=== PATIENT | male | born 1935 | race Hispanic/Latino ===

== ENCOUNTER 2018-09-21 12:56 | Inpatient (IN) | payer OTHER ==
[2018-09-21 13:59] LABS: Absolute Lymphocytes (CBC) 1.5 K/uL (0.7-4.9); Absolute Monocytes 0.7 K/uL (0.1-1.3); Basophils % 0.5 % (0-1.3); Eosinophils % 0.1 % (0-4.4); Hematocrit 27.6 % (39.6-49.0); Lymphocytes % 6.8 % (15.3-44.8); MPV 8.7 fL (7.6-11.3); RBC Red Blood Cell Count 4.88 M/uL (4.33-5.43)
[2018-09-21 14:25] LABS: Albumin 3.8 g/dL (3.4-5.0); Bilirubin Direct 0.1 mg/dL (0-0.2); Bilirubin Total 0.3 mg/dL (0.2-1.0); Potassium 4.1 mmol/L (3.5-5.1); Protein, Total 8.8 g/dL (6.4-8.2)
--- NOTE | 2018-09-21 15:00 | RAD REPORT ---
EXAM DESCRIPTION: CTAbdomen Pelvis W Contrast - 09/21/2018 2:47 pm CLINICAL HISTORY: Abdominal pain. iv only;Abd pain COMPARISON: No comparisons TECHNIQUE: Biphasic CT imaging of the abdomen and pelvis was performed with 100 ml non-ionic IV cont rast. All CT scans are performed using dose optimization technique as appropriate and may include automated exposure control or mA/KV adjustment according to patient size. FINDINGS: Linear opacities are present in the inferior the lingula and left posterior lung base whic h may indicate mild aspiration or developing infiltrate.A small hiatal hernia is present. The liver, spleen, pancreas, adrenal glands and kidneys are within normal limits. Small focal fat con taining ventral hernia noted. Multiple distal mildly dilated small bowel loops are seen in the lower abdomen. Small bowel loops are extending into moderate to large inguinal hernia and into the right scrotal sac. Within the hernia s ac the small bowel loops appear dilated and mild fluid is present. This would indicate hernia incarce ration. A portion of the right aspect of the urinary bladder also extends into the hernia. The append ix is normal. Moderate stool is present in the colon. Prostate gland is mildly enlarged and projects into the bladder base. Moderate lumbosacral degenerati ve changes. IMPRESSION: Incarcerated right inguinal hernia is suspected containing dilated small bowel loops and fluid. This appears to resulting in mild mechanical small-bowel obstruction in the lower abdomen inv olving the distal small bowel loops.
[2018-09-21] MEDS ORDERED: METRONIDAZOLE 500mg IVPB 0 MG/0 ML BAG IV ONE (15:35)
[2018-09-21] MEDS ORDERED: NA CHLORIDE 0.9% 1,000 ML ONE (15:35)
[2018-09-21] MEDS ORDERED: ONDANSETRON 4 MG/2 ML VIAL ONE ×3 (15:35→20:22)
--- NOTE | 2018-09-21 15:50 | EKG ---
Test Date: 2018-09-21 Test Time: 14:00:32 Family Development Specialist: BLAKE MEASUREMENT RESULTS: Intervals: Rate: 79 VT: 136 QRSD: 90 QT: 396 QTc: 454 [place]: P: -7 VT: 136 QRS: 59 T: 75 INTERPRETIVE STATEMENTS: Normal sinus rhythm with sinus arrhythmia Minimal voltage criteria for LVH, may be normal variant Borderline ECG No previous ECG available for comparison Electronically Signed On 09-21-18 15:50:00 CDT by Wilmer Rodríguez
--- NOTE | 2018-09-21 15:50 | RAD REPORT ---
EXAM DESCRIPTION: Romaine Single View09/21/2018 3:35 pm CLINICAL HISTORY: Shortness of breath COMPARISON: none FINDINGS: Mild basilar opacities within the left lung. The right lung appears clear. The heart is normal size IMPRESSION: Mild left basilar pneumonia
[2018-09-21] MEDS ORDERED: PIPER/TAZO/NS 3.375gm 3.375 GM/100 ML BAG ONE ×2 (15:53→23:58)
[2018-09-21] MEDS ORDERED: NA CHLORIDE 0.9% 500 ML ONE (16:03)
--- NOTE | 2018-09-21 16:03 | ER ---
Nurse's Notes [facility] Name: David Escudero Age: 82 yrs Sex: Male : 1935 Arrival Date: 09/21/2018 Time: 12:58 Bed 3 Private MD: Diagnosis: Inguinal hernia-Incarcerated;Small bowel obstruction;Anemia Presentation: 09/21 13:08 Presenting complaint: Patient states: abd pain, N/V that began this morning. Transition ss of care: patient was not received from another setting of care. Onset of symptoms was September 21, 2018. Risk Assessment: Do you want to hurt yourself or someone else? Patient reports no desire to harm self or others. Initial Sepsis Screen: Does the patient meet any 2 criteria? No. Patient's initial sepsis screen is negative. Does the patient have a suspected source of infection? No. Patient's initial sepsis screen is negative. Care prior to arrival: None. 13:08 Method Of Arrival: Wheelchair ss 13:08 Acuity: LOTTIE 2 ph Historical: - Allergies: 13:10 No Known Allergies; ss - PMHx: 13:10 Diabetes - NIDDM; ss - Immunization history:: Adult Immunizations up to date. - Social history:: Smoking status: Patient/guardian denies using tobacco. - Ebola Screening: : Patient denies exposure to infectious person Patient denies travel to an Ebola-affected area in the 21 days before illness onset. Screenin:50 Abuse screen: Denies threats or abuse. Denies injuries from another. Nutritional ph screening: No deficits noted. Tuberculosis screening: No symptoms or risk factors identified. Fall Risk None identified. Assessment: 13:30 General: Appears in no apparent distress. uncomfortable, well groomed, Behavior is ph calm, cooperative, appropriate for age, Denies fever. Pain: Complains of pain in right inguinal area and right lower quadrant and right upper quadrant. Neuro: Level of Consciousness is awake, alert, obeys commands, Oriented to person, place, time, situation. Cardiovascular: Reports nausea, Denies chest pain, shortness of breath, Capillary refill is sluggish in bilateral fingers Rhythm is sinus rhythm. Respiratory: Airway is patent Respiratory effort is even, unlabored, Respiratory pattern is regular, symmetrical, Denies cough, shortness of breath. GI: Abdomen is round Abdomen is tender to palpation in right upper quadrant and right lower quadrant Reports lower abdominal pain, upper abdominal pain, nausea, vomiting, Patient currently denies bloody stool, diarrhea. : Swelling noted on scrotum Reports pain in right in suprapubic area Denies inability to void. Derm: Skin is intact, Skin is pale, Skin temperature is cool. Musculoskeletal: Circulation, motion, and sensation intact. Range of motion: intact in all extremities. 14:30 Reassessment: Patient appears in no apparent distress at this time. Patient and/or ph family updated on plan of care and expected duration. Pain level reassessed. Patient is alert, oriented x 3, equal unlabored respirations, skin warm/dry/pink. 15:35 Reassessment: Patient appears in no apparent distress at this time. Patient and/or ph family updated on plan of care and expected duration. Pain level reassessed. Patient is alert, oriented x 3, equal unlabored respirations, skin warm/dry/pink. ERP at bedside attempting to manipulate inguinal hernia back in to place, attempts unsuccessful. 15:50 Reassessment: Dr Boggs at bedside to speak assess pt and explain surgical procedure. ph 16:10 Reassessment: Patient appears in no apparent distress at this time. Patient and/or ph family updated on plan of care and expected duration. Pain level reassessed. Patient is alert, oriented x 3, equal unlabored respirations, skin warm/dry/pink. 17:00 Reassessment: Patient appears in no apparent distress at this time. Patient and/or ph family updated on plan of care and expected duration. Pain level reassessed. Patient is alert, oriented x 3, equal unlabored respirations, skin warm/dry/pink. 18:12 Reassessment: Patient appears in no apparent distress at this time. Patient and/or ph family updated on plan of care and expected duration. Pain level reassessed. Patient is alert, oriented x 3, equal unlabored respirations, skin warm/dry/pink. Report given to OR nurse, pt taken to surgery. Vital Signs: 13:10 BP 194 / 61; Pulse 81; Resp 18; Temp 97.3(TE); Pulse Ox 100% on R/A; Weight 68.04 kg; ss Height 5 ft. 7 in. (170.18 cm); Pain 07/10; 14:00 BP 172 / 67; Pulse 79; Resp 18; Pulse Ox 99% on R/A; ph 15:00 BP 181 / 60; Pulse 76; Resp 18; Pulse Ox 99% on R/A; ph 16:00 BP 182 / 72; Pulse 79; Resp 18; Temp 97.9; Pulse Ox 99% on R/A; ph 16:59 BP 179 / 74; Pulse 100; Resp 18; Pulse Ox 98% on R/A; ph 18:13 BP 141 / 63; Pulse 82; Resp 18; Temp 98.0; Pulse Ox 99% on R/A; ph 13:10 Body Mass Index 23.49 (68.04 kg, 170.18 cm) ED Course: 12:58 Patient arrived in ED. mr 13:09 Triage completed. ss 13:10 Arm band placed on right wrist. ss 13:13 Anthony Delcid PA is PHCP. jr8 13:13 Jaspreet Andrade MD is Attending Physician. jr8 13:17 Nancy Zarco RN is Primary Nurse. ph 13:50 Patient has correct armband on for positive identification. Bed in low position. Call ph light in reach. Side rails up X 1. Pulse ox on. NIBP on. 14:05 EKG done, by electrical equipment technician. reviewed by Anthony TIERNEY. at1 14:13 Inserted saline lock: 22 gauge in right forearm, using aseptic technique. em1 14:[address] via stretcher. vm2 14:42 CT completed. Patient tolerated procedure well. Patient moved back from CT. vm2 14:48 CT Abd/Pelvis - W/Contrast In Process Unspecified. EDMS 15:36 XRAY Chest (1 view) In Process Unspecified. EDMS 15:50 Inserted saline lock: 20 gauge in left antecubital area, using aseptic technique. ph 16:01 Rodolfo Narayan DO is Hospitalizing Provider. jr8 16:58 No provider procedures requiring assistance completed. ph Administered Medications: 15:30 Drug: Zofran 4 mg Route: IVP; Site: right forearm; ph 16:52 Follow up: Response: No adverse reaction ph 15:35 Drug: NS 0.9% 1000 ml Route: IV; Rate: 1000 ml; Site: right antecubital; ph 16:50 Follow up: Response: No adverse reaction; IV Status: Order to discontinue infusion; IV ph Intake: 500ml 15:39 Not Given (Physician Discretion): Flagyl 500 mg 100 ml IVPB at 200 ml/hr once over 30 jr8 mins 15:40 Not Given (Physician Discretion): Mefoxin 1 grams IVPB once over 30 mins; (mix in 50 mL jr8 NS) 15:50 Drug: Zosyn 3.375 grams Route: IVPB; Infused Over: 60 mins; Site: right forearm; ph 16:50 Follow up: Response: No adverse reaction; IV Status: Completed infusion ph 16:20 Drug: Zofran 4 mg Route: IVP; Site: right forearm; ph 16:52 Follow up: Response: No adverse reaction ph 16:30 Drug: Meropenem 1 grams Route: IV; Rate: calculated rate; Site: right antecubital; ss 18:12 Follow up: Response: No adverse reaction; IV Status: Completed infusion ph Medication: 16:05 Blood products: PRBCs X 1 unit given. ph Intake: 16:50 IV: 500ml; Total: 500ml. ph Outcome: 16:02 Decision to Hospitalize by Provider. [facility] 18:13 Admitted to OR accompanied by nurse, family with patient, via stretcher, with chart. ph 18:13 critical 18:13 Instructed on the need for admit. 18:14 Patient left the ED. ph Signatures: Dispatcher [employer] Laura Wiley Eric em1 Linda Higginbotham RN RN Anthony Delcid PA PA jr8 Yazmin Joaquin, solar manufacturer's representative EKG Tat1 Nancy Zarco RN RN Deepali L[facility] Corrections: (The following items were deleted from the chart) 17:02 13:08 Acuity: LOTTIE 3 ss ph
--- NOTE | 2018-09-21 16:03 | EDPHYS ---
Physician Documentation [facility] Name: David Escudero Age: 82 yrs Sex: Male : 1935 Arrival Date: 09/21/2018 Time: 12:58 Bed 3 Private MD: ED Physician Jaspreet Andrade HPI: 09/21 14:29 This 82 yrs old Male presents to ER via Wheelchair with complaints of jr8 Abdominal Pain, Vomiting. 14:29 The patient presents with abdominal pain in the right upper quadrant, right lower jr8 quadrant. Onset: The symptoms/episode began/occurred acutely, today. The symptoms do not radiate. Associated signs and symptoms: Pertinent positives: nausea and vomiting. The symptoms are described as crampy, stabbing. Modifying factors: The symptoms are alleviated by nothing, the symptoms are aggravated by nothing. Severity of pain: At its worst the pain was moderate in the emergency department the pain is unchanged. The patient has not experienced similar symptoms in the past. The patient has not recently seen a physician. Historical: - Allergies: 13:10 No Known Allergies; ss - PMHx: 13:10 Diabetes - NIDDM; ss - Immunization history:: Adult Immunizations up to date. - Social history:: Smoking status: Patient/guardian denies using tobacco. - Ebola Screening: : Patient denies exposure to infectious person Patient denies travel to an Ebola-affected area in the 21 days before illness onset. ROS: 14:29 ENT: Negative for injury, pain, and discharge, Neck: Negative for injury, pain, and jr8 swelling, Cardiovascular: Negative for chest pain, palpitations, and edema, Respiratory: Negative for shortness of breath, cough, wheezing, and pleuritic chest pain, Back: Negative for injury and pain, MS/Extremity: Negative for injury and deformity, Skin: Negative for injury, rash, and discoloration, Neuro: Negative for headache, weakness, numbness, tingling, and seizure. 14:29 Abdomen/GI: Positive for abdominal pain, nausea and vomiting, abdominal cramps, Negative for diarrhea, abdominal distension, anorexia, dysphagia, hematemesis, black/tarry stool, rectal pain, rectal bleeding, bowel incontinence, flatulence. Exam: 14:29 Eyes: Pupils equal round and reactive to light, extra-ocular motions intact. Lids and jr8 lashes normal. Conjunctiva and sclera are non-icteric and not injected. Cornea within normal limits. Periorbital areas with no swelling, redness, or edema. ENT: Nares patent. No nasal discharge, no septal abnormalities noted. Tympanic membranes are normal and external auditory canals are clear. Oropharynx with no redness, swelling, or masses, exudates, or evidence of obstruction, uvula midline. Mucous membranes moist. Neck: Trachea midline, no thyromegaly or masses palpated, and no cervical lymphadenopathy. Supple, full range of motion without nuchal rigidity, or vertebral point tenderness. No Meningismus. Cardiovascular: Regular rate and rhythm with a normal S1 and S2. No gallops, murmurs, or rubs. Normal PMI, no JVD. No pulse deficits. Respiratory: Lungs have equal breath sounds bilaterally, clear to auscultation and percussion. No rales, rhonchi or wheezes noted. No increased work of breathing, no retractions or nasal flaring. Back: No spinal tenderness. No costovertebral tenderness. Full range of motion. Skin: Warm, dry with normal turgor. Normal color with no rashes, no lesions, and no evidence of cellulitis. MS/ Extremity: Pulses equal, no cyanosis. Neurovascular intact. Full, normal range of motion. Neuro: Awake and alert, GCS 15, oriented to person, place, time, and situation. Cranial nerves II-XII grossly intact. Motor strength 5/5 in all extremities. Sensory grossly intact. Cerebellar exam normal. Normal gait. 14:29 Abdomen/GI: Inspection: Multiple node like masses to right upper and mid abdomen that are freely mobile and non tender, Bowel sounds: active, all quadrants, Palpation: soft, in all quadrants, mild abdominal tenderness, in the right upper quadrant and right lower quadrant, mass, is not appreciated, rebound tenderness, is not appreciated, voluntary guarding, is not appreciated, involuntary guarding, is not appreciated, no appreciated organomegaly, Indicators: McBurney's point is not tender, Baez's sign is negative, Rovsing's sign is negative, Liver: tenderness, is not appreciated. 15:50 Abdomen/GI: Rectal exam: Prostate: normal, rectal tone normal, Stool: brown, guaiac jr8 negative, hemorrhoid(s), are not appreciated, Hernia: noted in the right inguinal area, incarceration, that is moderate, tenderness, that is moderate, bowel sounds are appreciated on auscultation. Vital Signs: 13:10 BP 194 / 61; Pulse 81; Resp 18; Temp 97.3(TE); Pulse Ox 100% on R/A; Weight 68.04 kg; ss Height 5 ft. 7 in. (170.18 cm); Pain 07/10; 14:00 BP 172 / 67; Pulse 79; Resp 18; Pulse Ox 99% on R/A; ph 15:00 BP 181 / 60; Pulse 76; Resp 18; Pulse Ox 99% on R/A; ph 16:00 BP 182 / 72; Pulse 79; Resp 18; Temp 97.9; Pulse Ox 99% on R/A; ph 16:59 BP 179 / 74; Pulse 100; Resp 18; Pulse Ox 98% on R/A; ph 18:13 BP 141 / 63; Pulse 82; Resp 18; Temp 98.0; Pulse Ox 99% on R/A; ph 13:10 Body Mass Index 23.49 (68.04 kg, 170.18 cm) ss MDM: 13:13 Patient medically screened. jr8 15:45 ED course: Discussed with family and patient need for admission with surgery secondary jr8 to incarcerated hernia and small bowel obstruction. Family and patient understand. Surgeon to see them in ED shortly . 15:51 Data reviewed: vital signs, nurses notes, lab test result(s), EKG, radiologic studies, jr8 CT scan. Data interpreted: Pulse oximetry: on room air is 100 %. Interpretation: normal. Counseling: I had a detailed discussion with the patient and/or guardian regarding: the historical points, exam findings, and any diagnostic results supporting the discharge/admit diagnosis, lab results, radiology results, the need for further work-up and treatment in the hospital. Physician consultation: Pramod Boggs MD was called at 15:51, was contacted at 15:51, regarding admission, to the operating room, consult, patient's condition, and will see patient in ED. 09/21 13:26 Order name: Basic Metabolic Panel; Complete Time: 14:28 jr8 09/21 13:26 Order name: CBC with Diff; Complete Time: 17:05 8 09/21 13:26 Order name: Creatinine for Radiology; Complete Time: 14:28 [facility] 09/21 13:26 Order name: Hepatic Function; Complete Time: 14:28 [facility] 09/21 13:26 Order name: Lipase; Complete Time: 14:28 [facility] 09/21 14:13 Order name: Manual Differential; Complete Time: 17:05 [facility] 09/21 14:14 Order name: NT PRO-BNP; Complete Time: 16:51 [facility] 09/21 14:14 Order name: PT-INR; Complete Time: 16:20 [facility] 09/21 14:14 Order name: Troponin (emerg Dept Use Only); Complete Time: 16:51 [facility] 09/21 14:14 Order name: TS [facility] 09/21 15:38 Order name: RBC Leukored Pheresis [facility] 09/21 15:41 Order name: Blood Culture Adult (2) [facility] 09/21 15:48 Order name: Occult Blood--Ancillary; Complete Time: 16:20 09/21 16:23 Order name: Packed RBC Leukored -1 [facility] 09/21 13:26 Order name: IV Saline Lock; Complete Time: 14:21 [facility] 09/21 13:26 Order name: Labs collected and sent; Complete Time: 14:21 [facility] 09/21 13:50 Order name: EKG; Complete Time: 13:50 [facility] 09/21 13:50 Order name: EKG - Nurse/Tech; Complete Time: 15:06 [facility] 09/21 14:14 Order name: XRAY Chest (1 view); Complete Time: 16:02 [facility] 09/21 14:14 Order name: Cardiac monitoring; Complete Time: 16:48 [facility] 09/21 14:29 Order name: CT Abd/Pelvis - W/Contrast; Complete Time: 15:14 [facility] 09/21 16:39 Order name: ABO/RH no charge; Complete Time: 16:51 EDCT Administered Medications: 15:30 Drug: Zofran 4 mg Route: IVP; Site: right forearm; ph 16:52 Follow up: Response: No adverse reaction ph 15:35 Drug: NS 0.9% 1000 ml Route: IV; Rate: 1000 ml; Site: right antecubital; ph 16:50 Follow up: Response: No adverse reaction; IV Status: Order to discontinue infusion; IV ph Intake: 500ml 15:39 Not Given (Physician Discretion): Flagyl 500 mg 100 ml IVPB at 200 ml/hr once over 30 jr8 mins 15:40 Not Given (Physician Discretion): Mefoxin 1 grams IVPB once over 30 mins; (mix in 50 mL jr8 NS) 15:50 Drug: Zosyn 3.375 grams Route: IVPB; Infused Over: 60 mins; Site: right forearm; ph 16:50 Follow up: Response: No adverse reaction; IV Status: Completed infusion ph 16:20 Drug: Zofran 4 mg Route: IVP; Site: right forearm; ph 16:52 Follow up: Response: No adverse reaction ph 16:30 Drug: Meropenem 1 grams Route: IV; Rate: calculated rate; Site: right antecubital; ss 18:12 Follow up: Response: No adverse reaction; IV Status: Completed infusion ph Disposition: 09/22 05:54 Co-signature as Attending Physician, Jaspreet Andrade MD I agree with the assessment and octavio plan of care. Disposition: 09/21/18 16:02 Hospitalization ordered by Rodolfo Narayan for Inpatient Admission. Preliminary diagnosis are Inguinal hernia - Incarcerated, Small bowel obstruction, Anemia. - Bed requested for Operating Room. - Status is Inpatient Admission. ph - Condition is Fair. - Problem is new. - Symptoms are unchanged. UTI on Admission? No Critical care time excluding procedures: 09/21 15:45 Critical care time: Bedside Care: 20 minutes, Consultation: 10 minutes, Family jr8 Intervention: 10 minutes. Total time: 40 minutes Signatures: Dispatcher [employer] Jaspreet Loera MD MD cha Smirch, Shelby, RN RN Anthony Delcid PA PA jr8 Nancy Zarco RN RN ph Corrections: (The following items were deleted from the chart) 18:14 16:02 Hospitalization Ordered by Rodolfo Narayan DO for Inpatient Admission. Preliminary ph diagnosis is Inguinal hernia - Incarcerated; Small bowel obstruction; Anemia. Bed requested for Operating Room. Status is Inpatient Admission. Condition is Fair. Problem is new. Symptoms are unchanged. UTI on Admission? No. jr8
[2018-09-21 16:14] LABS: Protime INR 1.14
--- NOTE | 2018-09-21 16:34 | P.HP ---
Certification for Inpatient Patient admitted to: Inpatient With expected LOS: >2 Midnights Patient will require the following post-hospital care: None Practitioner: I am a practitioner with admitting privileges, knowledge of patient current condition, hospital course, and medical plan of care. Services: Services provided to patient in accordance with Admission requirements found in Title 42 Section 412.3 of the Code of Federal Regulations Patient History Date of Service: 09/21/18 Primary Care Provider: Dr. Danny Brown Reason for admission: Abdominal pain History of Present Illness: 82-year-old male presented to the emergency room with right lower quadrant abdominal pain. Pain has been present off and on over the past week. Patient has inguinal hernia. Pain was severe today. He denied any significant nausea or vomiting. Denied any fever, chills, chest pain. Patient was evaluated the emergency room. CT scan showed in cross her added right inguinal hernia with mechanical small bowel obstruction. Chest x-ray also showed left lower lobe pneumonia. White count 22.3, hemoglobin 7.8. He had a negative guaiac stool study. Sodium 136, potassium 4.1, BUN of 14, creatinine 1.02 with a GFR 69. Glucose elevated at 354. ER spoke to surgery who evaluated patient. Surgery is planned. When I saw the patient ER, he appeared comfortable. Pain controlled with medication. Patient receiving transfusion of blood. Currently stable this time. Home medications list reviewed: Yes - Past Medical/Surgical History Diabetic: Yes -: Diabetes mellitus type 2 -: Left hand surgery Psychosocial/ Personal History: Patient is - Family History Family History: Reviewed- Non-Contributory - Social History Smoking Status: Never smoker Alcohol use: No CD- Drugs: No Caffeine use: Yes Place of Residence: Home Review of Systems General: Weakness, As per HPI Eyes: Unremarkable ENT: Unremarkable Respiratory: Unremarkable Cardiovascular: Unremarkable Gastrointestinal: Abdominal Pain, As per HPI Genitourinary: Unremarkable Musculoskeletal: Unremarkable Integumentary: Unremarkable Neurological: Unremarkable Lymphatics: Unremarkable Physical Examination - Physical Exam General: Alert, In no apparent distress, Oriented x3, Cooperative HEENT: Atraumatic, Normocephalic, Mucous membr. moist/pink Neck: Supple Respiratory: Clear to auscultation bilaterally, Normal air movement Cardiovascular: Normal pulses, Regular rate/rhythm Gastrointestinal: Hypoactive, Tenderness (right lower quadrant hernia noted) Musculoskeletal: No erythema, No tenderness, No warmth Integumentary: No tenderness/swelling, No erythema, No warmth, No cyanosis Neurological: Normal speech, Normal strength at 5/5 x4 extr, Normal tone, Normal affect - Studies Laboratory Data (last 24 hrs) 09/21/18 15:35: PT 13.4 H, INR 1.14 09/21/18 13:45: Creatinine 1.02 09/21/18 13:45: WBC 22.3 H*, Hgb 7.8 L*, Hct 27.6 L, Plt Count 494 H 09/21/18 13:45: Sodium 136, Potassium 4.1, BUN 14, Creatinine 1.03, Glucose 354 H, Total Bilirubin 0.3, AST 13 L, ALT 16, Alkaline Phosphatase 101, Lipase 88 Microbiology Data (last 24 hrs): 09/21/18 15:48 Stool Occult Blood - Final Assessment and Plan - Plan Impression: Right lower quadrant inguinal pain secondary to incarcerated hernia with mechanical small bowel obstruction Left lower lobe pneumonia likely aspiration Acute anemia DM-Type 2 Plan: Patient to be admitted. Case discussed with surgery. Patient to have emergent surgery to repair incarcerated hernia and mechanical small bowel obstruction. Patient will go to ICU. Will start antibiotic therapy to cover for abdominal and left lower lobe pneumonia likely aspiration. Will start Accu-Cheks with sliding scale. Will monitor closely. Patient to get transfusion of blood. Will need to monitor hemoglobin. Patient had guaiac stool negative in the emergency room. Continue to follow closely with surgery. Discharge Plan: Home Plan to discharge in: Greater than 2 days - Advance Directives Does patient have a Living Will: No Does patient have a Durable POA for Healthcare: No - Code Status/Comfort Care Code Status Assessed: Yes (Patient full code.) Time Spent Managing Pts Care (In Minutes): 55
[2018-09-21 16:36] LABS: NT PRO-BNP 201 pg/mL (<450); Troponin (Emerg Dept Use Only) < 0.02 ng/mL (0.0-0.045)
[2018-09-21 17:00] LABS: Anisocytosis 1+; Blood Morphology Comment NOTED (NOT SEEN); Hypochromasia 3+; Platelet Estimate INCR; Polychromasia 1+; Rouleau NOTED
[2018-09-21] MEDS ORDERED: Meropenem 1,000 MG in NA CHLORIDE 0.9% 100 ML IV ONE (17:00)
[2018-09-21] MEDS ORDERED: SUCCINYLCHOLINE 20 MG/ML (10 ML) IV ONE (19:24)
[2018-09-21] MEDS ORDERED: LIDOCAINE 2% MPF 5 ML VIAL ONE (19:26)
[2018-09-21] MEDS ORDERED: PROPOFOL 200 MG/20 ML VIAL IV ONE (19:26)
[2018-09-21] MEDS ORDERED: ROCURONIUM 50 MG/5 ML VIAL IV ONE (19:27)
[2018-09-21] MEDS ORDERED: FENTANYL CITR 250 MCG/5 ML ONE (19:29)
[2018-09-21] MEDS ORDERED: BUPIVACA 0.5%/EPI 0.0005%/PF 30 ML VIAL ONE (20:16)
[2018-09-21] MEDS ORDERED: KETOROLAC 30 MG/ML INJ ONE (20:22)
[2018-09-21] MEDS ORDERED: DEXAMETHASONE 10 MG/ML VIAL ONE (20:22)
[2018-09-21] MEDS ORDERED: Ringers Lactate 1,000 ML IV ONE (20:36)
[2018-09-21] MEDS ORDERED: GLYCOPYRROLATE 0.2 MG/ML SYR ONE (21:11)
[2018-09-21] MEDS ORDERED: NEOSTIGMINE 1 MG/ML -10 ML VIAL ONE (21:12)
--- NOTE | 2018-09-21 21:25 | P.OP ---
Preoperative diagnosis: Incarcerated RIGHT inguinal hernia Postoperative diagnosis: Incarcerated RIGHT inguinal hernia Primary procedure: Open Right Inguinal Hernia Repair with Plug and Patch Anesthesia: GETA + Local Estimated blood loss: <10cc Specimen: Hernia sack Findings: LARGE right inguinal hernia, bowel was viable Complications: None Implants: Bard LARGE hernia plug and patch Transferred to: Recovery Room Condition: Good
[2018-09-21] MEDS: MORPHINE 4 MG/ML SYR ONE ×2 (21:45→21:50)
[2018-09-21] MEDS ORDERED: MORPHINE 2 MG/ML SYR IV PRN (21:59)
[2018-09-21] MEDS ORDERED: Meropenem 1000 MG/VIAL IV SCH (21:59)
[2018-09-21] MEDS ORDERED: ACETAMINOPHEN 650MG/RECT SUPP RECT PRN (21:59)
[2018-09-21] MEDS ORDERED: ONDANSETRON 4 MG/2 ML VIAL IV PRN (21:59)
[2018-09-21 23:08] LABS: Thyroid Stimulating Hormone 1.76 uIU/mL (0.360-3.740)
[2018-09-21] MEDS: FAMOTIDINE 20 MG/2 ML VIAL IV SCH (23:19)
[2018-09-21] MEDS: NA CHLORIDE 0.9% 1,000 ML IV SCH (23:19)
[2018-09-21] MEDS: INSULIN -REGULAR HUMAN 50 UNIT/0.5 ML ML SQ SCH (23:27)
[2018-09-21] MEDS ORDERED: Meropenem 1 GM/100 ML BAG ONE (23:58)
[2018-09-22] MEDS ORDERED: PIPER/TAZO/NS 3.375gm 3.375 GM/100 ML BAG IVPB SCH (01:00)
[2018-09-22] MEDS: Meropenem 1 GM/100 ML BAG IV SCH ×2 (04:09→17:12)
[2018-09-22] MEDS: INSULIN -REGULAR HUMAN 50 UNIT/0.5 ML ML SQ SCH ×5 (06:00→21:58)
[2018-09-22 06:08] LABS: Magnesium 2.3 mg/dL (1.8-2.4); Potassium 4.5 mmol/L (3.5-5.1)
--- NOTE | 2018-09-22 06:23 | OP ---
Date of Procedure: 09/21/2018 Surgeon: Pramod Boggs MD, Preoperative Diagnosis: Incarcerated right inguinal hernia. Postoperative Diagnosis: Incarcerated right inguinal hernia. Procedure Performed: Open right inguinal hernia repair with mesh, that is the plug and patch system. Anesthesia: General endotracheal plus local with 0.5% Marcaine with epinephrine. Estimated Blood Loss: Less than 10 cc. Specimens: Hernia sac. Findings: Large right inguinal hernia. Bowel was viable. Complications: None. Implants: Bard large hernia plug and patch system. Disposition: Transferred to recovery room in good condition. Procedure In Detail: After informed consent was obtained, the patient was brought to the operating r oom, prepped and draped in the usual sterile fashion. After adequate anesthesia was achieved, an ing uinal incision was made down through subcutaneous tissues to expose the Camper's fat and dissect down through Camper's fat and Morgan's fascia to expose the external oblique aponeurosis. After this was performed, the external oblique aponeurosis was opened with a 15-blade scalpel, and it was opened in its entirety using Metzenbaum scissors. After this was performed, the hernia was appreciated. It w as encircled along with spermatic cord structures with a Alpine drain. After this was performed, th e hernia sac which was found to be medial to the spermatic cord and structures was dissected free fro m the spermatic cord and structures. This was a very large hernia which had incarcerated. After the hernia sac was dissected free, it was opened and the bowel was returned back to the normal anatomic position without any evidence of bowel compromise. It all appeared pink and viable without any obvio us injury. The hernia sac was then circumferentially dissected and partially removed and ligated and returned to the normal anatomic position. The large hernia plug was then brought onto the field, hy drated appropriately, and parachuted in circumferentially through the deep inguinal ring in the prepe ritoneal space and was fanned out. It was secured circumferentially to the deep ring using 0 PDS sut ures. After this was performed, the hernia patch was then brought into the field hydrated appropriat joel and sized appropriately around the femoral ring. The patch was then secured to the fascia over t he pubic tubercle and then on the medial and lateral shelving edges and the deep inguinal ring was re constituted using the patch mesh along with a 0 PDS suture. After this was performed, the testicle w as reduced easily back in the normal anatomic position and the external oblique aponeurosis was inspe cted and found to be intact, although it was somewhat thin and friable. I irrigated the area copious ly and then dried the area. I then closed the external oblique aponeurosis with a running 3-0 Vicryl suture with good approximation of the tissues and the Camper's fat and Morgan's fascia were then lila sed en bloc with an additional interrupted 3-0 Vicryl suture and the deep dermal layer was closed wit h 3-0 Vicryl in interrupted fashion. The skin was then closed with a 4-0 Monocryl running fashion. Dermabond was placed over top. The patient tolerated the procedure well without evidence of complica tion, transferred to PACU in good condition. All counts were correct at the end of the case. JULIO C/CHELY Voice ID: [id number] Report ID: [id number]
[2018-09-22 06:46] LABS: Absolute Lymphocytes (CBC) 1.3 K/uL (0.7-4.9); Absolute Monocytes 0.8 K/uL (0.1-1.3); Absolute Neutrophil 27.5 K/uL (1.8-8.0); Basophils % 0.1 % (0-1.3); Hematocrit 26.1 % (39.6-49.0); Lymphocytes % 4.4 % (15.3-44.8); MPV 8.8 fL (7.6-11.3); Monocytes % 2.8 % (3.3-12.3); RBC Red Blood Cell Count 4.29 M/uL (4.33-5.43)
[2018-09-22] MEDS: NA CHLORIDE 0.9% 1,000 ML IV SCH ×2 (06:46→17:14)
[2018-09-22 07:11] LABS: Anisocytosis 2+; Blood Morphology Comment NOTED (NOT SEEN); Platelet Estimate ADEQ
[2018-09-22 07:12] LABS: Hypochromasia 2+; Polychromasia SLIGHT
--- NOTE | 2018-09-22 08:41 | RAD REPORT ---
EXAM DESCRIPTION: Romaine Single View09/22/2018 6:52 am CLINICAL HISTORY: Chest pain COMPARISON: September 21, 2018 FINDINGS: No change in mild left basilar opacity. Mild medial right upper lobe opacity is suspected. The heart is normal size IMPRESSION: Mild bilateral pulmonary opacities probably represent pneumonia
--- NOTE | 2018-09-22 08:52 | P.PN ---
Subjective Date of Service: 09/22/18 Primary Care Provider: Dr. Danny Brown Chief Complaint: Abdominal pain Subjective: Improving (Patient doing well. Pain well controlled. No complaints noted otherwise.) Physical Examination - Vital Signs Temperature: 98.8 F Blood Pressure: 102/58 Pulse: 84 Respirations: 16 Pulse Ox (%): 97 - Physical Exam General: Alert, In no apparent distress, Oriented x3, Cooperative HEENT: Atraumatic Neck: Supple Respiratory: Clear to auscultation bilaterally, Normal air movement Cardiovascular: Normal pulses, Regular rate/rhythm Gastrointestinal: Normal bowel sounds, Soft and benign, Non-distended, No tenderness, No masses, No rebound, No guarding, Other (Postop changes noted to the right inguinal region.) Musculoskeletal: No erythema, No tenderness, No warmth Integumentary: No tenderness/swelling, No erythema, No warmth, No cyanosis Neurological: Normal speech, Normal strength at 5/5 x4 extr, Normal tone, Normal affect - Studies Laboratory Data (last 24 hrs) 09/21/18 15:35: PT 13.4 H, INR 1.14 09/21/18 13:45: Creatinine 1.02 09/21/18 13:45: WBC 22.3 H*, Hgb 7.8 L*, Hct 27.6 L, Plt Count 494 H 09/21/18 13:45: Sodium 136, Potassium 4.1, BUN 14, Creatinine 1.03, Glucose 354 H, Total Bilirubin 0.3, AST 13 L, ALT 16, Alkaline Phosphatase 101, Lipase 88 Microbiology Data (last 24 hrs): 09/21/18 15:48 Stool Occult Blood - Final Medications List Reviewed: Yes Assessment & Plan Discharge Plan: Home Plan to discharge in: 72 Hours Physician Review Additional Text: Impression: Right lower quadrant inguinal pain secondary to incarcerated hernia with mechanical small bowel obstruction status post open right inguinal hernia repair , postop day 1 Bilateral pneumonia likely aspiration Acute anemia likely iron deficient DM-Type 2 Plan: Right lower quadrant inguinal pain secondary to incarcerated hernia with mechanical small bowel obstruction status post open right inguinal hernia repair , postop day 1: Patient doing well post operatively. Await further recommendations from surgery on when to start clear liquid diet. Pain well controlled with medication. Encourage ambulation with physical therapy today. Encourage incentive spirometer. Will discontinue Zosyn and continue with meropenem. Blood cultures obtained. Bilateral pneumonia likely aspiration: X-ray today shows bilateral pneumonia. This is likely from aspiration. Will continue with meropenem and discontinue Zosyn. Will maintain sats above 90%. Wean off oxygen. Continue incentive spirometer. Will obtain echocardiogram to further evaluate for possible CHF. Acute anemia likely iron deficient: Patient given blood transfusion yesterday. Will recheck hemoglobin today. If less than 7.0 will transfuse blood. DM-Type 2: Continue with sliding scale. Time Spent Managing Pts Care (In Minutes): 55
--- NOTE | 2018-09-22 09:28 | P.PN ---
Subjective Date of Service: 09/22/18 Primary Care Provider: Dr. Danny Brown Chief Complaint: Abdominal pain Subjective: Improving (Patient has minimal pain to the RIGHT groin, and has improvement of his cough, but not resolution, he has no bowel function yet) Physical Examination - Vital Signs Temperature: 98.8 F Blood Pressure: 102/58 Pulse: 84 Respirations: 16 Pulse Ox (%): 97 - Physical Exam General: In no apparent distress HEENT: Atraumatic, Mucous membr. moist/pink Respiratory: Diminished Cardiovascular: Regular rate/rhythm Gastrointestinal: Other (soft, mild inguinal pain, appropriate for post op, abdominal exam is improved, non-distended, no rebound, no guarding, no peritoneal signs) - Studies Laboratory Data (last 24 hrs) 09/21/18 15:35: PT 13.4 H, INR 1.14 09/21/18 13:45: Creatinine 1.02 09/21/18 13:45: WBC 22.3 H*, Hgb 7.8 L*, Hct 27.6 L, Plt Count 494 H 09/21/18 13:45: Sodium 136, Potassium 4.1, BUN 14, Creatinine 1.03, Glucose 354 H, Total Bilirubin 0.3, AST 13 L, ALT 16, Alkaline Phosphatase 101, Lipase 88 Microbiology Data (last 24 hrs): 09/21/18 15:48 Stool Occult Blood - Final Medications List Reviewed: Yes Assessment And Plan - Current Problems (Diagnosis) (1) Inguinal hernia of right side with obstruction and without gangrene Current Visit: Yes Status: Acute Plan: Neuro: pain well controlled with current regime, encourage PO pain meds Abd: SBO resolving, continue serial exams, start clear liquids ID: leukocytosis, likely multifactorial, surgery, SBO, pneumonia, continue meropenem at this time anemia - chronic NOT acute blood loss, no need for transfusion at this time, continue to monitor vitals ambulate with assist Physician Review Additional Text: Impression: Right lower quadrant inguinal pain secondary to incarcerated hernia with mechanical small bowel obstruction status post open right inguinal hernia repair , postop day 1 Bilateral pneumonia likely aspiration Acute anemia likely iron deficient DM-Type 2 Plan: Right lower quadrant inguinal pain secondary to incarcerated hernia with mechanical small bowel obstruction status post open right inguinal hernia repair , postop day 1: Patient doing well post operatively. Await further recommendations from surgery on when to start clear liquid diet. Pain well controlled with medication. Encourage ambulation with physical therapy today. Encourage incentive spirometer. Will discontinue Zosyn and continue with meropenem. Blood cultures obtained. Bilateral pneumonia likely aspiration: X-ray today shows bilateral pneumonia. This is likely from aspiration. Will continue with meropenem and discontinue Zosyn. Will maintain sats above 90%. Wean off oxygen. Continue incentive spirometer. Will obtain echocardiogram to further evaluate for possible CHF. Acute anemia likely iron deficient: Patient given blood transfusion yesterday. Will recheck hemoglobin today. If less than 7.0 will transfuse blood. DM-Type 2: Continue with sliding scale.
[2018-09-22] MEDS: FAMOTIDINE 20 MG/2 ML VIAL IV SCH ×2 (09:32→20:45)
[2018-09-22 12:11] LABS: Hematocrit 27.3 % (39.6-49.0)
[2018-09-22 12:52] LABS: Ferritin 6.1 ng/mL (26-388); Transferrin 276 mg/dL (200-360)
--- NOTE | 2018-09-22 12:54 | ECHO ---
HEIGHT: 5 ft 7 in WEIGHT: 150 lb 0 oz DATE OF STUDY: 09/22/[address]: Rodolfo Narayan DO 2-DIMENSIONAL: YES M.MODE: YES DOPPLER: YES COLOR FLOW: YES TDS: NO PORTABLE: NO DEFINITY: NO BUBBLE STUDY: NO DIAGNOSIS: SHORTNESS OF BREATH/ EVALUATE CONGESTIVE HEART FAILURE CARDIAC HISTORY: CATHERIZATION: NO SURGERY: NO PROSTHETIC VALVE: NO PACEMAKER: NO MEASUREMENTS (cm) DIASTOLIC (NORMALS) SYSTOLIC (NORMALS) IVSd 1.1 (0.6-1.2) LA Diam 4.5 (1.9-4.0) LVEF 54% LVIDd 4.5 (3.5-5.7) LVIDs 3.2 (2.0-3.5) %FS 28% LVPWd 1.1 (0.6-1.2) Ao Diam 2.8 (2.0-3.7) 2 DIMENSIONAL ASSESSMENT: RIGHT ATRIUM: NORMAL LEFT ATRIUM: DILATED RIGHT VENTRICLE: NORMAL LEFT VENTRICLE: NORMAL TRICUSPID VALVE: NORMAL MITRAL VALVE: NORMAL PULMONIC VALVE: NORMAL AORTIC VALVE: NORMAL PERICARDIAL EFFUSION: NONE AORTIC ROOT: NORMAL LEFT VENTRICULAR WALL MOTION: NORMAL. DOPPLER/COLOR FLOW: MILD MITRAL AND TRICUSPID REGURGITATION. NORMAL RIGHT VENTRICULAR SYSTOLIC PRESSURE. COMMENTS: NORMAL LEFT VENTRICULAR EJECTION FRACTION. DILATED LEFT ATRIUM. MILD MITRAL AND TRICUSPID REGURGITATION. TECHNOLOGIST: ADAL BERTRAND
--- NOTE | 2018-09-22 14:04 | CON ---
Date of Consultation: 09/21/2018 Brief History Of Present Illness: The patient is an 82-year-old male, who presents to the e mergelay room with right lower quadrant abdominal pain beginning earlier this day. He has had a long multiple-year history of a right inguinal hernia, however, usually was able to be reduced manually b y himself at home, but he has been more active as of late and had significant increase in his coughin g over the past month and it has gotten progressively worse over the past several days. He notes too t with increased coughing and rigorous coughing, he has had additional protrusion and bulging in that right groin region, and at this point, he could no longer reduce it and he has significant increase in the right lower quadrant abdominal pain related to this. He has had nausea and vomiting, has abdo ozzie distention, and had not had a bowel movement in approximately 2 days prior to this. As such wi th increased abdominal pain, he came to the emergency room for the above-stated problem. Past Medical History: Significant for diabetes. Past Surgical History: Left hand surgery. Psychosocial History: He is . He denies smoking, alcohol, or recreational drug use. Allergies: NO KNOWN DRUG ALLERGIES. Medications: His home medications include diabetes medication. He is unsure of the specific type. Family History: Noncontributory. Review of Systems: A 10-point review of systems; he complains of the cough as above, otherwise no additional complaints. Physical Examination: VITAL SIGNS: At the time of my examination, his BMI is 23.5. His blood pressure 133/61, pulse 77, r espiratory rate 12, temperature 98.7. General: He is awake, alert, oriented. Psychiatric: He is appropriate and conversive. HEENT: He is normocephalic. Sclerae anicteric. Mucous membranes are moist. Oropharynx is clear. He has multiple teeth replaced. The dentition is somewhat poor. Neck: Supple. No JVD. Chest: Normal expansion and excursion. Cardiovascular: Regular rate and rhythm. Pulmonary: Decreased breath sounds bilaterally. Abdomen: Soft in the general abdomen, but does have mild distension and has a right inguinal hernia, which is incarcerated and tender to palpation. There are no skin changes over the top. Attempts at reduction were unsuccessful, and the patient has significant pain in the right groin area. Extremities: No clubbing, cyanosis, or edema. Skin: Warm and dry. Laboratory Exam: White blood cell count of 22.3, hemoglobin 7.8, hematocrit of 27.6, platelet count is 494, neutrophils 89%. His PT is 13.4, INR 1.14. Sodium 136, potassium 4.1, chloride 99, carbon d ioxide 24, BUN 14, creatinine 1.02, glucose is 354. His total bilirubin 0.3, direct component 0.1, A ST is 13, ALT 16, alkaline phosphatase 101. He had a CT scan performed of the abdomen and pelvis as well as a chest x-ray. The chest x-ray was officially read as mild left basilar pneumonia. He also had a CT scan performed of the abdomen and pelvis, which was officially read as incarcerated right in guinal hernia, suspected containing dilated small bowel loops and fluid. This appears to be resultin g in mild mechanical small bowel obstruction in the lower abdomen involving the distal small bowel lo ops. Assessment And Plan: This is an 82-year-old male, who presents with signs and symptoms of incarcerat ed right inguinal hernia, causing small bowel obstruction. 1.IV fluid hydration. 2.Antibiotic coverage. 3.Continue medical management for possible pneumonia. 4.I have explained the risks, benefits, and alternatives of open right inguinal hernia repair, possi ble small bowel resection, possible exploratory laparotomy including, but not limited to, bleeding, i nfection, damage to surrounding tissues, need for further operation procedures, problems with implant ed device, nerve injury, sexual dysfunction. The patient agrees to proceed as indicated. I will take the patient emergently to the operating room for repair of the above stated p alishaleonard. JULIO C/CHELY Voice ID: [id number] Report ID: [id number]
[2018-09-22] MEDS: ENOXAPARIN 40 MG/0.4 ML SQ SCH (17:13)
[2018-09-22] MEDS ORDERED: D50W 25 GM/50 ML SYRINGE IV PRN (18:08)
[2018-09-22] MEDS ORDERED: GLUCAGON 1 MG/VIAL IM PRN (18:08)
[2018-09-22] MEDS: HYDROCODONE/APAP 5/325 MG TAB PO PRN (20:44)
[2018-09-23] MEDS: Meropenem 1 GM/100 ML BAG IV SCH (04:01)
[2018-09-23] MEDS: NA CHLORIDE 0.9% 1,000 ML IV SCH ×3 (04:01→23:20)
[2018-09-23 05:59] LABS: Absolute Lymphocytes (CBC) 2.2 K/uL (0.7-4.9); Absolute Monocytes 1.1 K/uL (0.1-1.3); Absolute Neutrophil 17.3 K/uL (1.8-8.0); Basophils % 0.2 % (0-1.3); Eosinophils % 0.4 % (0-4.4); Hematocrit 24.9 % (39.6-49.0); Lymphocytes % 10.5 % (15.3-44.8); Monocytes % 5.2 % (3.3-12.3); RBC Red Blood Cell Count 4.14 M/uL (4.33-5.43)
[2018-09-23 06:22] LABS: BUN Blood Urea Nitrogen 13 mg/dL (7-18); Bicarbonate 26 mmol/L (21-32); Glucose Level 125 mg/dL (74-106); Potassium 3.9 mmol/L (3.5-5.1); Sodium Level 140 mmol/L (136-145)
[2018-09-23 06:47] LABS: Blood Morphology Comment NOTED (NOT SEEN); Platelet Estimate ADEQ; Urine White Blood Cell Casts OK
[2018-09-23 06:48] LABS: Anisocytosis 2+; Hypochromasia 2+
[2018-09-23] MEDS ORDERED: POTASSIUM CL SA 10 MEQ TAB PO ONE (09:00)
[2018-09-23] MEDS: INSULIN -REGULAR HUMAN 50 UNIT/0.5 ML ML SQ SCH ×4 (09:02→20:38)
[2018-09-23] MEDS: FAMOTIDINE 20 MG/2 ML VIAL IV SCH (09:03)
--- NOTE | 2018-09-23 09:48 | P.PN ---
Subjective Date of Service: 09/23/18 Primary Care Provider: Dr. Danny Brown Chief Complaint: Abdominal pain Subjective: Improving (Patient passing gas, minimal pain in right groin, no abdominal pain, ambulatory, tolerating clear liquids well, no nausea or emesis.) Physical Examination - Vital Signs Temperature: 98.7 F Blood Pressure: 152/65 Pulse: 90 Respirations: 17 Pulse Ox (%): 95 - Physical Exam General: Alert, In no apparent distress, Oriented x3 HEENT: Mucous membr. moist/pink Gastrointestinal: Soft and benign, Non-distended, No ascites, No tenderness, No masses, No rebound, No guarding, Other (RIGHT groin is appropriately tender to palpation, no hernia recurrence or infections to skin) - Studies Medications List Reviewed: Yes Assessment And Plan - Current Problems (Diagnosis) (1) Inguinal hernia of right side with obstruction and without gangrene Current Visit: Yes Status: Acute Plan: Neuro: pain well controlled with current regime, encourage PO pain meds Abd: SBO resolving, continue serial exams, start full liquids ID: leukocytosis improving but remains elevated, likely multifactorial, surgery , SBO, pneumonia, continue meropenem at this time anemia - chronic NOT acute blood loss, no need for transfusion at this time, continue to monitor vitals ambulate with assist Physician Review Additional Text: Impression: Right lower quadrant inguinal pain secondary to incarcerated hernia with mechanical small bowel obstruction status post open right inguinal hernia repair , postop day 1 Bilateral pneumonia likely aspiration Acute anemia likely iron deficient DM-Type 2 Plan: Right lower quadrant inguinal pain secondary to incarcerated hernia with mechanical small bowel obstruction status post open right inguinal hernia repair , postop day 1: Patient doing well post operatively. Await further recommendations from surgery on when to start clear liquid diet. Pain well controlled with medication. Encourage ambulation with physical therapy today. Encourage incentive spirometer. Will discontinue Zosyn and continue with meropenem. Blood cultures obtained. Bilateral pneumonia likely aspiration: X-ray today shows bilateral pneumonia. This is likely from aspiration. Will continue with meropenem and discontinue Zosyn. Will maintain sats above 90%. Wean off oxygen. Continue incentive spirometer. Will obtain echocardiogram to further evaluate for possible CHF. Acute anemia likely iron deficient: Patient given blood transfusion yesterday. Will recheck hemoglobin today. If less than 7.0 will transfuse blood. DM-Type 2: Continue with sliding scale.
--- NOTE | 2018-09-23 11:14 | P.PN ---
Subjective Date of Service: 09/23/18 Primary Care Provider: Dr. Danny Brown Chief Complaint: Abdominal pain Subjective: Improving (Patient continues to improve. Less pain noted. Patient tolerating clear liquid diet. Patient is passing gas.) Physical Examination - Vital Signs Temperature: 98.7 F Blood Pressure: 152/65 Pulse: 90 Respirations: 17 Pulse Ox (%): 95 - Physical Exam General: Alert, In no apparent distress, Oriented x3, Cooperative HEENT: Atraumatic Neck: Supple Respiratory: Clear to auscultation bilaterally, Normal air movement Cardiovascular: Normal pulses, Regular rate/rhythm Gastrointestinal: Normal bowel sounds, Soft and benign, Non-distended, No masses , No rebound, No guarding, Tenderness (Less pain to the right lower quadrant) Musculoskeletal: No erythema, No tenderness, No warmth Integumentary: No tenderness/swelling, No erythema, No warmth, No cyanosis Neurological: Normal speech, Normal strength at 5/5 x4 extr, Normal tone, Normal affect - Studies Medications List Reviewed: Yes Assessment & Plan Discharge Plan: Home Plan to discharge in: 48 Hours Physician Review Additional Text: Impression: Right lower quadrant inguinal pain secondary to incarcerated hernia with mechanical small bowel obstruction status post open right inguinal hernia repair , postop day 2 Bilateral pneumonia likely aspiration Acute anemia with iron deficiency DM-Type 2 Elevated blood pressure without hypertension Plan: Right lower quadrant inguinal pain secondary to incarcerated hernia with mechanical small bowel obstruction status post open right inguinal hernia repair , postop day 2: Patient doing well post operatively. Patient tolerating current diet. Anticipate advancement if okay with surgery. Continue physical therapy. Encourage incentive spirometer. Will change antibiotic coverage to Levaquin and Flagyl. Case discussed with surgery. Anticipate discharge in the next 1-2 days. Bilateral pneumonia likely aspiration: Recheck chest x-ray today. Will wean off oxygen. Antibiotics adjusted. Will maintain sats above 90%. Wean off oxygen. Continue incentive spirometer. Acute anemia with iron deficiency: Patient given blood transfusion upon admission. Continue monitor hemoglobin. Will start IV iron. DM-Type 2: Continue with sliding scale. Previous A1c 14.4 in July. Will restart metformin. Elevated blood pressure without hypertension: Will monitor. May need JEANA- inhibitor if this remains elevated. Time Spent Managing Pts Care (In Minutes): 55
[2018-09-23 12:14] LABS: Hematocrit 28.1 % (39.6-49.0)
[2018-09-23 12:14] LABS: Urine Appearance CLEAR; Urine Bilirubin NEGATIVE (NEG); Urine Blood NEGATIVE (NEG); Urine Color YELLOW; Urine Glucose 3+ (NEG); Urine Protein NEGATIVE (NEG); Urine pH 6.5 (5.0-7.0)
[2018-09-23 12:21] LABS: Urine Microscopic Reflex ORDER UMIC
[2018-09-23 12:44] LABS: Urine Bacteria NONE SEEN /HPF (NONE SEEN); Urine RBC <5 /HPF (NONE SEEN)
[2018-09-23 12:46] LABS: Urine Culture Reflex Order NOT NEEDED
--- NOTE | 2018-09-23 12:58 | RAD REPORT ---
EXAM DESCRIPTION: RAD - Chest Pa And Lat (2 Views) - 09/23/2018 12:49 pm CLINICAL HISTORY: Pneumonia COMPARISON: September 22 TECHNIQUE: PA and lateral views of the chest were obtained. FINDINGS: The lungs are normal volume. There is underlying fibrotic lung change present. Pneumonia c hanges in the medial left base are still present and may be mildly progressive. Mid and upper left sean ng field is unchanged. Perihilar and mid right lung field opacification has show no improvement and m ay be slightly worse. There is a fullness of the right hilum that needs monitoring. Heart size is normal and central vasculature is within normal limits. No pleural effusion or pneumot horax seen. No acute bony finding noted. No aortic abnormality. IMPRESSION: Small lung base pneumonia stable or slightly worse than prior day imaging. Right perihilar and right midlung field opacification shows no improvement and may be slightly worse in the midlung field. Fullness of the right hilum needs monitoring. This could be part of pneumonia, reactive lymphadenopat hy or less likely mass lesion.
[2018-09-23] MEDS: METRONIDAZOLE 500mg IVPB 500 MG/100 ML BAG IV SCH ×2 (17:18→23:19)
[2018-09-23] MEDS: ENOXAPARIN 40 MG/0.4 ML SQ SCH (17:18)
[2018-09-23] MEDS: METFORMIN HCL 500 MG TAB PO SCH (17:21)
[2018-09-23] MEDS: FAMOTIDINE 20 MG TAB PO SCH (20:30)
[2018-09-23] MEDS: HYDROCODONE/APAP 5/325 MG TAB PO PRN (20:30)
[2018-09-24 06:38] LABS: Absolute Lymphocytes (CBC) 2.5 K/uL (0.7-4.9); Absolute Monocytes 0.7 K/uL (0.1-1.3); Absolute Neutrophil 8.9 K/uL (1.8-8.0); Basophils % 0.6 % (0-1.3); Eosinophils % 3.4 % (0-4.4); Hematocrit 25.1 % (39.6-49.0); Lymphocytes % 19.7 % (15.3-44.8); MPV 8.7 fL (7.6-11.3); Monocytes % 5.5 % (3.3-12.3); RBC Red Blood Cell Count 4.14 M/uL (4.33-5.43)
[2018-09-24 06:56] LABS: BUN Blood Urea Nitrogen 8 mg/dL (7-18); Bicarbonate 25 mmol/L (21-32); Glucose Level 157 mg/dL (74-106); Potassium 4.2 mmol/L (3.5-5.1); Sodium Level 140 mmol/L (136-145)
[2018-09-24] MEDS: INSULIN -REGULAR HUMAN 50 UNIT/0.5 ML ML SQ SCH ×4 (07:30→21:00)
[2018-09-24] MEDS: METRONIDAZOLE 500mg IVPB 500 MG/100 ML BAG IV SCH (08:42)
[2018-09-24] MEDS: FAMOTIDINE 20 MG TAB PO SCH ×2 (08:42→22:21)
[2018-09-24] MEDS: levoFLOXacin 500 MG TAB PO SCH (08:43)
[2018-09-24] MEDS: NA CHLORIDE 0.9% 1,000 ML IV SCH (09:59)
[2018-09-24] MEDS: SOD FERRIC GLUC COMPLX/SUCROSE 125 MG in NA CHLORIDE 0.9% 100 ML IV SCH (10:15)
[2018-09-24] MEDS: METFORMIN HCL 500 MG TAB PO SCH ×2 (10:15→17:07)
[2018-09-24 12:29] LABS: Hematocrit 26.9 % (39.6-49.0)
--- NOTE | 2018-09-24 13:38 | P.PN ---
Subjective Date of Service: 09/24/18 Primary Care Provider: Dr. Danny Brown Chief Complaint: Abdominal pain Subjective: Improving (Patient continues to improve. Less pain noted) Physical Examination - Vital Signs Temperature: 97.2 F Blood Pressure: 148/87 Pulse: 100 Respirations: 20 Pulse Ox (%): 96 - Physical Exam General: Alert, In no apparent distress, Oriented x3, Cooperative HEENT: Atraumatic Neck: Supple Respiratory: Clear to auscultation bilaterally, Normal air movement Cardiovascular: Normal pulses, Regular rate/rhythm Gastrointestinal: Normal bowel sounds, Soft and benign, Non-distended, No masses , No rebound, No guarding Musculoskeletal: No erythema, No tenderness, No warmth Integumentary: No tenderness/swelling, No erythema, No warmth, No cyanosis Neurological: Normal speech, Normal strength at 5/5 x4 extr, Normal tone, Normal affect - Studies Medications List Reviewed: Yes Assessment & Plan Discharge Plan: Home Plan to discharge in: 24 Hours Physician Review Additional Text: Impression: Right lower quadrant inguinal pain secondary to incarcerated hernia with mechanical small bowel obstruction status post open right inguinal hernia repair , postop day 3 Bilateral pneumonia likely aspiration Acute anemia with iron deficiency DM-Type 2 Elevated blood pressure without hypertension Plan: Right lower quadrant inguinal pain secondary to incarcerated hernia with mechanical small bowel obstruction status post open right inguinal hernia repair , postop day 3: Patient doing well post operatively. Will continue to adjust diet. Encourage ambulation. Encourage IS Marlene spirometer. Case discussed with surgery. Will discontinue Flagyl. Anticipate discharge tomorrow. Bilateral pneumonia likely aspiration: X-ray shows improvement. Will wean off oxygen. Antibiotics adjusted. Will maintain sats above 90%. Wean off oxygen. Continue incentive spirometer. Acute anemia with iron deficiency: Patient given blood transfusion upon admission. Continue monitor hemoglobin. Overall stable. Continue with IV iron. DM-Type 2: Continue with sliding scale. Previous A1c 14.4 in July. Continue current medication Elevated blood pressure without hypertension: Will monitor. May need JEANA- inhibitor if this remains elevated. Time Spent Managing Pts Care (In Minutes): 55
[2018-09-24] MEDS: ENOXAPARIN 40 MG/0.4 ML SQ SCH (17:07)
[2018-09-24] MEDS: HYDROCODONE/APAP 5/325 MG TAB PO PRN (18:41)
[2018-09-25 06:13] LABS: Absolute Lymphocytes (CBC) 2.2 K/uL (0.7-4.9); Absolute Monocytes 0.6 K/uL (0.1-1.3); Absolute Neutrophil 7.4 K/uL (1.8-8.0); Basophils % 0.6 % (0-1.3); Eosinophils % 6.1 % (0-4.4); Hematocrit 24.4 % (39.6-49.0); Lymphocytes % 20.1 % (15.3-44.8); MPV 8.6 fL (7.6-11.3); Monocytes % 5.8 % (3.3-12.3); RBC Red Blood Cell Count 4.06 M/uL (4.33-5.43)
[2018-09-25 06:26] LABS: BUN Blood Urea Nitrogen 9 mg/dL (7-18); Bicarbonate 27 mmol/L (21-32); Glucose Level 150 mg/dL (74-106); Potassium 4.2 mmol/L (3.5-5.1); Sodium Level 140 mmol/L (136-145)
[2018-09-25] MEDS: INSULIN -REGULAR HUMAN 50 UNIT/0.5 ML ML SQ SCH ×4 (07:30→20:33)
[2018-09-25] MEDS: HYDROCODONE/APAP 5/325 MG TAB PO PRN ×2 (08:45→20:32)
[2018-09-25] MEDS: levoFLOXacin 500 MG TAB PO SCH (08:46)
[2018-09-25] MEDS: METFORMIN HCL 500 MG TAB PO SCH ×2 (08:46→16:39)
[2018-09-25] MEDS: FAMOTIDINE 20 MG TAB PO SCH ×2 (08:47→20:33)
[2018-09-25] MEDS: SOD FERRIC GLUC COMPLX/SUCROSE 125 MG in NA CHLORIDE 0.9% 100 ML IV SCH (08:48)
--- NOTE | 2018-09-25 08:59 | P.PN ---
Subjective Date of Service: 09/25/18 Primary Care Provider: Dr. Danny Brown Chief Complaint: Abdominal pain Subjective: Improving Physical Examination - Vital Signs Temperature: 98.1 F Blood Pressure: 147/66 Pulse: 84 Respirations: 18 Pulse Ox (%): 96 - Physical Exam General: Alert, In no apparent distress, Oriented x3, Cooperative HEENT: Atraumatic Neck: Supple Respiratory: Clear to auscultation bilaterally, Normal air movement Cardiovascular: Normal pulses, Regular rate/rhythm Gastrointestinal: Normal bowel sounds, Soft and benign, Non-distended, No tenderness, No masses, No rebound, No guarding Musculoskeletal: No erythema, No tenderness, No warmth Integumentary: No erythema, No warmth, No cyanosis Neurological: Normal speech, Normal strength at 5/5 x4 extr, Normal tone, Normal affect - Studies Medications List Reviewed: Yes Assessment & Plan Discharge Plan: Home Plan to discharge in: 24 Hours Physician Review Additional Text: Impression: Right lower quadrant inguinal pain secondary to incarcerated hernia with mechanical small bowel obstruction status post open right inguinal hernia repair , postop day 4 Bilateral pneumonia likely aspiration Acute anemia likely related to above with iron deficiency DM-Type 2 Elevated blood pressure without hypertension Plan: Right lower quadrant inguinal pain secondary to incarcerated hernia with mechanical small bowel obstruction status post open right inguinal hernia repair , postop day 4: Patient doing well post operatively. Continue to advance diet. Continue incentive spirometer. Continue ambulation. Anticipate discharge within the next 24 hr. Patient will get transfused 2 units of blood today. Bilateral pneumonia likely aspiration: X-ray shows improvement. Will wean off oxygen. Continue incentive spirometer. Antibiotics adjusted yesterday. Maintain sats above 90%. Acute anemia likely related to above with iron deficiency: Hemoglobin slightly decreased. Will transfuse 2 units of packed red blood cells at this time. Anticipate discharge in the next 24 hr. If hemoglobin stable. DM-Type 2: Continue with sliding scale. Previous A1c 14.4 in July. Continue current medication Elevated blood pressure without hypertension: Will monitor. May need JEANA- inhibitor if this remains elevated. Time Spent Managing Pts Care (In Minutes): 55
[2018-09-25] MEDS ORDERED: NA CHLORIDE 0.9% 250 ML ONE (14:47)
[2018-09-25] MEDS: ENOXAPARIN 40 MG/0.4 ML SQ SCH (16:39)
[2018-09-25] MEDS: FUROSEMIDE 20 MG/ 2ML VIAL IV SCH ×2 (18:13→22:56)
[2018-09-26 00:16] LABS: Hematocrit 32.8 % (39.6-49.0)
[2018-09-26 04:25] LABS: Absolute Lymphocytes (CBC) 2.8 K/uL (0.7-4.9); Absolute Monocytes 0.7 K/uL (0.1-1.3); Absolute Neutrophil 8.1 K/uL (1.8-8.0); Basophils % 0.7 % (0-1.3); Eosinophils % 5.9 % (0-4.4); Hematocrit 32.6 % (39.6-49.0); Lymphocytes % 22.4 % (15.3-44.8); MPV 8.7 fL (7.6-11.3); Monocytes % 5.4 % (3.3-12.3); RBC Red Blood Cell Count 4.98 M/uL (4.33-5.43)
[2018-09-26 04:34] LABS: BUN Blood Urea Nitrogen 9 mg/dL (7-18); Bicarbonate 27 mmol/L (21-32); Glucose Level 133 mg/dL (74-106); Magnesium 1.7 mg/dL (1.8-2.4); Potassium 3.5 mmol/L (3.5-5.1); Sodium Level 140 mmol/L (136-145)
[2018-09-26] MEDS ORDERED: MAGNESIUM SULFATE 1 gm IVPB 1 GM/100 ML BAG IV ONE (05:02)
[2018-09-26] MEDS ORDERED: POTASSIUM 25 MEQ EFFERV TAB PO ONE (05:03)
[2018-09-26] MEDS: INSULIN -REGULAR HUMAN 50 UNIT/0.5 ML ML SQ SCH ×2 (07:30→11:30)
--- NOTE | 2018-09-26 07:55 | P.DS ---
Admission Date: 09/21/18 Discharge Date: 09/26/18 Primary Care Provider: Dr. Danny Brown Disposition: ROUTINE DISCHARGE Discharge Condition: GOOD Reason for Admission: Abdominal pain Consultations: Surgery-Dr. Boggs Procedures: Post CXR: FINDINGS: The lungs are normal volume. There is underlying fibrotic lung change present. Pneumonia changes in the medial left base are still present and may be mildly progressive. Mid and upper left lung field is unchanged. Perihilar and mid right lung field opacification has show no improvement and may be slightly worse. There is a fullness of the right hilum that needs monitoring. Heart size is normal and central vasculature is within normal limits. No pleural effusion or pneumothorax seen. No acute bony finding noted. No aortic abnormality. IMPRESSION: Small lung base pneumonia stable or slightly worse than prior day imaging. Right perihilar and right midlung field opacification shows no improvement and may be slightly worse in the midlung field. Fullness of the right hilum needs monitoring. This could be part of pneumonia, reactive lymphadenopathy or less likely mass lesion. CT scan: FINDINGS: Linear opacities are present in the inferior the lingula and left posterior lung base which may indicate mild aspiration or developing infiltrate.A small hiatal hernia is present. The liver, spleen, pancreas, adrenal glands and kidneys are within normal limits. Small focal fat containing ventral hernia noted. Multiple distal mildly dilated small bowel loops are seen in the lower abdomen. Small bowel loops are extending into moderate to large inguinal hernia and into the right scrotal sac. Within the hernia sac the small bowel loops appear dilated and mild fluid is present. This would indicate hernia incarceration. A portion of the right aspect of the urinary bladder also extends into the hernia. The appendix is normal. Moderate stool is present in the colon. Prostate gland is mildly enlarged and projects into the bladder base. Moderate lumbosacral degenerative changes. IMPRESSION: Incarcerated right inguinal hernia is suspected containing dilated small bowel loops and fluid. This appears to resulting in mild mechanical small- bowel obstruction in the lower abdomen involving the distal small bowel loops. ECHO: EF 54% LEFT VENTRICULAR WALL MOTION: NORMAL. DOPPLER/COLOR FLOW: MILD MITRAL AND TRICUSPID REGURGITATION. NORMAL RIGHT VENTRICULAR SYSTOLIC PRESSURE. COMMENTS: NORMAL LEFT VENTRICULAR EJECTION FRACTION. DILATED LEFT ATRIUM. MILD MITRAL AND TRICUSPID REGURGITATION. Impression: Right lower quadrant inguinal pain secondary to incarcerated hernia with mechanical small bowel obstruction status post open right inguinal hernia repair , postop day 5 Bilateral pneumonia likely aspiration Acute anemia likely related to above with iron deficiency DM-Type 2 Elevated blood pressure without hypertension GERD Brief History of Present Illness: 82-year-old male presented to the emergency room with right lower quadrant abdominal pain. Pain has been present off and on over the past week. Patient has inguinal hernia. Pain was severe today. He denied any significant nausea or vomiting. Denied any fever, chills, chest pain. Patient was evaluated the emergency room. CT scan showed incarcerated right inguinal hernia with mechanical small bowel obstruction. Chest x-ray also showed left lower lobe pneumonia. White count 22.3, hemoglobin 7.8. He had a negative guaiac stool study. Sodium 136, potassium 4.1, BUN of 14, creatinine 1.02 with a GFR 69. Glucose elevated at 354. ER spoke to surgery who evaluated patient. Surgery is planned. When I saw the patient ER, he appeared comfortable. Pain controlled with medication. Patient receiving transfusion of blood. Currently stable this time. Hospital Course: Presents with right lower quadrant inguinal pain. Patient found to have incarcerated hernia with mechanical small bowel obstruction. Patient evaluated by surgery. Surgical intervention was required. Patient had open right internal hernia repair. Patient did well post operatively. At discharge patient will follow up with surgery in 1 week to follow up this hospitalization. Postoperative care provided. No heavy lifting, pushing or pulling is recommended. A limited supply of Tramadol 50 mg 1 pill 3 times a day as needed for pain will be provided. Upon admission patient was also acutely anemic. Patient received blood transfusion. Patient with iron deficiency. Patient further required 2 units of blood. At discharge hemoglobin stable. At discharge he will continue with iron 325 mg 1 pill twice daily. Recommend to recheck CBC in 2-4 weeks to monitor his progress. Patient also had bilateral pneumonia. Aspiration likely. Patient did well with antibiotics treatment. At discharge patient will continue with Levaquin 500 mg daily for 2 more days. Patient will continue with incentive spirometer. Recommend to recheck chest x-ray in 2-4 weeks to monitor resolution. Patient with diabetes mellitus type 2. At discharge patient will continue with his current medications of metformin 1000 mg 1 pill twice daily, Jardiance 10 mg daily, and Januvia 100 mg daily. Recommend to maintain blood sugars less 140 fasting and less than 200 after meals. Further adjustment can be done by his PCP. Patient had mild elevation in blood pressure. Recommend to monitor his blood pressures closely at home. If his blood pressures remain above 140/90 consistently patient may require medication in the near future. This can be further addressed by his PCP. Patient likely with GERD. At discharge patient will continue with Pepcid 20 mg 1 pill twice daily. Due to his anemia and GERD recommend to have patient follow up with GI as an outpatient to further monitor. Patient will likely require EGD and colonoscopy to further address. Vital Signs/Physical Exam: Temp Pulse Resp BP Pulse Ox 98.3 F 78 18 167/73 H 99 09/26/18 04:00 09/26/18 04:00 09/26/18 04:00 09/26/18 04:00 09/26/18 04:00 General: Alert, In no apparent distress, Oriented x3, Cooperative HEENT: Atraumatic Neck: Supple Respiratory: Clear to auscultation bilaterally, Normal air movement Cardiovascular: Normal pulses, Regular rate/rhythm Gastrointestinal: Normal bowel sounds, Soft and benign, Non-distended, No tenderness, No masses, No rebound, No guarding Musculoskeletal: No erythema, No tenderness, No warmth Integumentary: No tenderness/swelling, No erythema, No warmth, No cyanosis Neurological: Normal speech, Normal strength at 5/5 x4 extr, Normal tone, Normal affect Laboratory Data at Discharge: WBC 12.4 K/uL (4.3-10.9) H 09/26/18 03:50 Hgb 10.1 g/dL (13.6-17.9) L 09/26/18 03:50 Hct 32.6 % (39.6-49.0) L 09/26/18 03:50 Plt Count 455 K/uL (152-406) H 09/26/18 03:50 PT 13.4 SECONDS (9.5-12.5) H 09/21/18 15:35 INR 1.14 09/21/18 15:35 Sodium 140 mmol/L (136-145) 09/26/18 03:50 Potassium 3.5 mmol/L (3.5-5.1) 09/26/18 03:50 BUN 9 mg/dL (7-18) 09/26/18 03:50 Creatinine 0.80 mg/dL (0.55-1.3) 09/26/18 03:50 Glucose 133 mg/dL (74-106) H 09/26/18 03:50 Magnesium 1.7 mg/dL (1.8-2.4) L 09/26/18 03:50 Total Bilirubin 0.3 mg/dL (0.2-1.0) 09/21/18 13:45 AST 13 U/L (15-37) L 09/21/18 13:45 ALT 16 U/L (12-78) 09/21/18 13:45 Alkaline Phosphatase 101 U/L (45-117) 09/21/18 13:45 Lipase 88 U/L (73-393) 09/21/18 13:45 Home Medications: Empagliflozin [Jardiance] 10 mg PO DAILY 09/22/18 Metformin HCl 1,000 mg PO BID 09/22/18 Sitagliptin Phosphate [Januvia*] 100 mg PO DAILY 09/22/18 Famotidine [Pepcid*] 20 mg PO BID #60 tab 09/26/18 Ferrous Sulfate [Iron] 325 mg PO BID #60 tablet 09/26/18 levoFLOXacin [Levaquin*] 500 mg PO DAILY #2 tab 09/26/18 traMADol HCL [Ultram*] 50 mg PO TID PRN #15 tab 09/26/18 New Medications: Famotidine [Pepcid*] 20 mg PO BID #60 tab Ferrous Sulfate [Iron] 325 mg PO BID #60 tablet levoFLOXacin [Levaquin*] 500 mg PO DAILY #2 tab traMADol HCL [Ultram*] 50 mg PO TID PRN #15 tab PRN Reason: Pain Patient Discharge Instructions: 1. Follow up with PCP in 1 week to follow up care. 2. Presents with right lower quadrant inguinal pain. Patient found to have incarcerated hernia with mechanical small bowel obstruction. Patient evaluated by surgery. Surgical intervention was required. Patient had open right internal hernia repair. Patient did well post operatively. At discharge patient will follow up with surgery in 1 week to follow up this hospitalization. Postoperative care provided. No heavy lifting, pushing or pulling is recommended. A limited supply of Tramadol 50 mg 1 pill 3 times a day as needed for pain will be provided. 3. Upon admission patient was also acutely anemic. Patient received blood transfusion. Patient with iron deficiency. Patient further required 2 units of blood. At discharge hemoglobin stable. At discharge he will continue with iron 325 mg 1 pill twice daily. Recommend to recheck CBC in 2-4 weeks to monitor his progress. 4. Patient also had bilateral pneumonia. Aspiration likely. Patient did well with antibiotics treatment. At discharge patient will continue with Levaquin 500 mg daily for 2 more days. Patient will continue with incentive spirometer. Recommend to recheck chest x-ray in 2-4 weeks to monitor resolution. 5. Patient with diabetes mellitus type 2. At discharge patient will continue with his current medications of metformin 1000 mg 1 pill twice daily, Jardiance 10 mg daily, and Januvia 100 mg daily. Recommend to maintain blood sugars less 140 fasting and less than 200 after meals. Further adjustment can be done by his PCP. 6. Patient had mild elevation in blood pressure. Recommend to monitor his blood pressures closely at home. If his blood pressures remain above 140/90 consistently patient may require medication in the near future. This can be further addressed by his PCP. 7. Patient likely with GERD. At discharge patient will continue with Pepcid 20 mg 1 pill twice daily. Due to his anemia and GERD recommend to have patient follow up with GI as an outpatient to further monitor. Patient will likely require EGD and colonoscopy to further address. Diet: Regular Activity: No lifting more than 10 lbs Followup: Pramod Boggs MD [ACTIVE - CAN ADMIT] - Time spent managing pt's care (in minutes): 55
[2018-09-26] MEDS: SOD FERRIC GLUC COMPLX/SUCROSE 125 MG in NA CHLORIDE 0.9% 100 ML IV SCH (08:40)
[2018-09-26] MEDS: FAMOTIDINE 20 MG TAB PO SCH (08:41)
[2018-09-26] MEDS: levoFLOXacin 500 MG TAB PO SCH (08:41)
[2018-09-26] MEDS: METFORMIN HCL 500 MG TAB PO SCH (08:41)
== END 2018-09-26 12:54 | disposition home or self-care (01) | DRG 350 ==
LOC: ER 12:56 → ERHOLD 16:38 → 3RD-ICU 18:41 → 2ND 21:10
PROVIDERS: ADMIT Family Medicine; ATTEND Family Medicine
PROC: 0YU50JZ Supplement Right Inguinal Region with Synthetic Substitute, Open Approach (ICD-10-PCS; principal; 2018-09-21 16:00)
PROC: 30233N1 Transfusion of Nonautologous Red Blood Cells into Peripheral Vein, Percutaneous Approach (ICD-10-PCS; 2018-09-25)
DX: K40.30 Unilateral inguinal hernia, with obstruction, without gangrene, not specified as recurrent (principal); J69.0 Pneumonitis due to inhalation of food and vomit; D50.9 Iron deficiency anemia, unspecified; E11.9 Type 2 diabetes mellitus without complications; R03.0 Elevated blood-pressure reading, without diagnosis of hypertension; K21.9 Gastro-esophageal reflux disease without esophagitis
CPT/HCPCS: 36415; 36430; 71045; 71046; 74177; 80048; 80076; 81003; 81015; 82272; 82607; 82728; 82962; 83540; 83605; 83690; 83735; 83880; 84145; 84439; 84443; 84466; 84484; 85014; 85018; 85025; 85610; 86850; 86900; 86901; 87040; 87086; 87088; 88302; 93005; 93306; 97110; 97116; 97162; 97530; 99285; J0330; J1100; J1650; J1940; J2185; J2405; J2543; J2704; J2710; J2916; J3010; J3475; J7030; P9016; Q9967

== ENCOUNTER 2018-10-16 14:37 | Emergency (ER) | payer OTHER ==
--- NOTE | 2018-10-16 15:42 | ER ---
Nurse's Notes [facility] Name: David Escudero Age: 82 yrs Sex: Male : 1935 Arrival Date: 10/16/2018 Time: 14:40 Bed 28 Private MD: Danny Brown Diagnosis: Dehiscense of surgical wound site Presentation: 10/16 14:51 Presenting complaint: Patient states: I had a right inguinal hernia repair on september and about three days ago I started having some bloody drainage. Transition of care: patient was not received from another setting of care. Onset of symptoms was October 16, 2018. Risk Assessment: Do you want to hurt yourself or someone else? Patient reports no desire to harm self or others. Initial Sepsis Screen: Does the patient meet any 2 criteria? No. Patient's initial sepsis screen is negative. Does the patient have a suspected source of infection? No. Patient's initial sepsis screen is negative. Care prior to arrival: None. 14:51 Method Of Arrival: Ambulatory la 14:51 Acuity: LOTTIE 3 la1 Historical: - Allergies: 14:52 Aspirin; la1 - PMHx: 14:52 Diabetes - NIDDM; la1 - Immunization history:: Adult Immunizations up to date. - Social history:: Smoking status: Patient/guardian denies using tobacco. - Ebola Screening: : No symptoms or risks identified at this time. Screenin:32 Abuse screen: Denies threats or abuse. Denies injuries from another. Nutritional rv screening: No deficits noted. Tuberculosis screening: No symptoms or risk factors identified. Fall Risk None identified. Assessment: 15:29 General: Appears in no apparent distress. comfortable, Behavior is calm, cooperative. rv Pain: Complains of pain in wound site Noted to be guarding. Neuro: Level of Consciousness is awake, alert, obeys commands, Oriented to person, place, time, situation. Cardiovascular: Capillary refill < 3 seconds. Respiratory: Airway is patent. GI: No signs and/or symptoms were reported involving the gastrointestinal system. : No signs and/or symptoms were reported regarding the genitourinary system. EENT: No signs and/or symptoms were reported regarding the EENT system. Derm: Wound noted right lower quadrant Wound is post surgical wound Reports pain and bleeding. Musculoskeletal: No signs and/or symptoms reported regarding the musculoskeletal system. Vital Signs: 14:50 BP 130 / 61; Pulse 83; Resp 16; Temp 98.5; Pulse Ox 98% on R/A; Weight 72.57 kg; Height la1 5 ft. 3 in. (160.02 cm); Pain 3/10; 15:59 BP 124 / 66 RA Supine; Pulse 79; Resp 18 S; Pulse Ox 98% on R/A; rv 14:50 Body Mass Index 28.34 (72.57 kg, 160.02 cm) la1 ED Course: 14:40 Patient arrived in ED. mr 14:40 Danny Brown DO is Private Physician. mr 14:51 Triage completed. la1 14:51 Arm band placed on right wrist. la1 15:02 Solomon Kimball RN is Primary Nurse. rv 15:02 Anthony Delcid PA is PHCP. jr8 15:02 Arvind Keyes MD is Attending Physician. jr8 15:31 Wound care: to post surgical wound located on right lower quadrant was cleaned with rv Hibiclens, irrigated with normal saline, dressed with 4X4s, Patient tolerated well. 15:32 Patient has correct armband on for positive identification. Bed in low position. Call rv light in reach. Side rails up X 1. Adult w/ patient. Pulse ox on. NIBP on. 15:59 No provider procedures requiring assistance completed. Patient did not have IV access rv during this emergency room visit. Administered Medications: No medications were administered Outcome: 15:42 Discharge ordered by . jr8 15:59 Discharged to home ambulatory. rv 15:59 Condition: good 15:59 Discharge instructions given to patient, family, Instructed on discharge instructions, follow up and referral plans. wound care, Demonstrated understanding of instructions, follow-up care, wound care. 16:00 Patient left the ED. rv Signatures: Laura Joseph mr Anthony Delcid PA PA jr8 Benja Mcginnis RN RN la1 Solomon Kimball RN RN rv
--- NOTE | 2018-10-16 15:42 | EDPHYS ---
Physician Documentation [facility] Name: David Escudero Age: 82 yrs Sex: Male : 1935 Arrival Date: 10/16/2018 Time: 14:40 Bed 28 Private MD: Danny Brown ED Physician Arvind Keyes HPI: 10/16 15:30 This 82 yrs old Male presents to ER via Ambulatory with complaints of Surgical jr8 sight bleeding. 15:30 Patient presents to ED for recheck of: surgical site incision with small amount of jr8 serosanguinous drainage for 3 days. The affected area is on the right inguinal area. Previous treatment: Previous recheck: the patient's last recheck was 21 day(s) ago. The patient has not experienced similar symptoms in the past. The patient has not recently seen a physician, the patient's primary care provider is Dr. Dr. Brown. Patient states he had an inguinal hernia repair on September 21. The site was rechecked one week later and the surgeon told him it was healing well. 3 days ago patient noticed a small amount of serosanguinous drainage w/out redness, fever, or pain. Patient has not been to see his surgeon for this new issue. . Historical: - Allergies: 14:52 Aspirin; la1 - PMHx: 14:52 Diabetes - NIDDM; la1 - Immunization history:: Adult Immunizations up to date. - Social history:: Smoking status: Patient/guardian denies using tobacco. - Ebola Screening: : No symptoms or risks identified at this time. ROS: 15:33 Constitutional: Negative for fever, chills, and weight loss, Cardiovascular: Negative jr8 for chest pain, palpitations, and edema, Respiratory: Negative for shortness of breath, cough, wheezing, and pleuritic chest pain, Abdomen/GI: Negative for abdominal pain, nausea, vomiting, diarrhea, and constipation, Skin: Negative for injury, rash, and discoloration. Exam: 15:34 Constitutional: This is a well developed, well nourished patient who is awake, alert, jr8 and in no acute distress. 15:34 Cardiovascular: Rate: normal, Rhythm: regular, Pulses: Pulses are 2+ in right radial artery and left radial artery. Edema: is not appreciated. 15:34 Respiratory: the patient does not display signs of respiratory distress, Respirations: normal, Breath sounds: are clear throughout. 15:34 Abdomen/GI: Inspection: abdomen appears normal, Bowel sounds: normal, Palpation: abdomen is soft and non-tender, in all quadrants, no appreciated organomegaly. 15:34 Skin: Appearance: Color: normal in color, pink, Temperature: normal temperature, Moisture: normal moisture, lesion(s), Wound recheck: surgical site incision to R inguinal area noted to have < 1 am area of partial dehiscence without active drainage or erythema. Patient has no tenderness to the site. Wound appears to be closed with surgical glue on the superficial level which is still intact along the length of the wound. . Vital Signs: 14:50 BP 130 / 61; Pulse 83; Resp 16; Temp 98.5; Pulse Ox 98% on R/A; Weight 72.57 kg; Height la1 5 ft. 3 in. (160.02 cm); Pain 3/10; 15:59 BP 124 / 66 RA Supine; Pulse 79; Resp 18 S; Pulse Ox 98% on R/A; rv 14:50 Body Mass Index 28.34 (72.57 kg, 160.02 cm) la1 MDM: 15:03 Patient medically screened. jr8 15:39 Data reviewed: vital signs, nurses notes, and as a result, I will discharge patient. jr8 Data interpreted: Pulse oximetry: on room air is 98 %. Interpretation: normal. Counseling: I had a detailed discussion with the patient and/or guardian regarding: the historical points, exam findings, and any diagnostic results supporting the discharge/admit diagnosis, the need for outpatient follow up, a general surgeon, to return to the emergency department if symptoms worsen or persist or if there are any questions or concerns that arise at home. ED course: Patient with very small dehiscence of wound to right inguinal surgical site. Mild serosanguinous drainage noted with no exudate or erythema surrounding wound. Has been several days since it has been open. Recommended secondary wound healing at this point and to f/u with general surgeon who did the surgery. Patient good with this plan and will f/u . Administered Medications: No medications were administered Disposition: 10/16/18 15:42 Discharged to Home. Impression: Dehiscense of surgical wound site. - Condition is Stable. - Discharge Instructions: Wound Dehiscence. - Medication Reconciliation Form, Thank You Letter, Antibiotic Education, Prescription Opioid Use form. - Follow up: Private Physician; When: 1 - 2 days; Reason: Recheck today's complaints, Continuance of care, Re-evaluation by your physician. - Problem is new. - Symptoms have improved. Addendum: 10/18/2018 08:04 Co-signature as Attending Physician, Arvind Keyes MD Available for consultation at p s1 all times. . Signatures: Anthony Delcid PA PA jr8 Benja Mcginnis, RN RN la1 Arvind Keyes MD MD ps1 Solomon Kimball RN RN rv Corrections: (The following items were deleted from the chart) 10/16 16:00 15:42 10/16/2018 15:42 Discharged to Home. Impression: Dehiscense of surgical wound rv site. Condition is Stable. Forms are Medication Reconciliation Form, Thank You Letter, Antibiotic Education, Prescription Opioid Use. Follow up: Private Physician; When: 1 - 2 days; Reason: Recheck today's complaints, Continuance of care, Re-evaluation by your physician. Problem is new. Symptoms have improved. jr8
== END 2018-10-16 16:00 | disposition home or self-care (01) ==
LOC: ER 14:37
DX: T81.31XA Disruption of external operation (surgical) wound, not elsewhere classified, initial encounter (principal); Y83.8 Other surgical procedures as the cause of abnormal reaction of the patient, or of later complication, without mention of misadventure at the time of the procedure
CPT/HCPCS: 99283

== ENCOUNTER 2020-03-29 13:33 | Inpatient (IN) | payer OTHER ==
--- OUTSIDE RECORDS SUMMARY | 2020-03-29 13:56 | XMS REPORT | Continuity of Care Document ---
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 Ania kes - emia emia Memoria l [facility] ent [facility] Noncomplia Noncomplia Problem Active [facility] with nce with [facility] - dietary dietary Chaneloria restrictio restrictio l n n [facility] ent Clinics Noncomplia Noncomplia Diagnosis Active [facility] n[facility] nce [facility] - w/medicati w/medicati Me moria on on l treatment treatment Outp ati due to due to ent intermit intermit Clinic s use of use of medication medication Drug Drug Diagnosis Active [facility] declined declined [facility] - by by Lulú patient, patient, l reason reason Outpati unknown unknown ent Clinics Anemia, Anemia, Diagnosis Active [facility] unspecifie unspecifie Ania kes - d type d type Memoria l [facility] ent Clinics Allergies, Adverse Reactions, Alerts This patient has no known allergies or adverse reactions. Medications Ordered Filled Start Stop Current Ordering Indication Dosage Frequency Signature Comments Components Source Medication Medication Date Date Medication? Clinician (SIG) Name Name Michele Bautista Yes Danny [address] [facility] ent Clinics Childrens Childrens Yes Danny [address] [facility] Aspirin Aspirin [facility] ent Clinics Atorvastati Atorvastati Yes Danny [address] [facility] n Calcium n Calcium Brown Luke s - Memoria l [facility] ent Clinics Ferrous Ferrous Yes Danny [address] [facility] Sulfate Sulfate Brown [facility] Outpat[facility] ent Clinics Metformin Metformin Yes Danny [address] [facility] HCl HCl Brown with a [facility]ukes - meal [facility] ent Clinics Jardiance Jardiance 2019- No Danny take [address] [facility] 09-19 Brown tablet by [facility] - 00:00 mouth once Memoria :00 daily for l 30 days Outpati ent Clinics Procedures This patient has no known procedures. Encounters Start End Encounter Admission Attending Care Care Encounter Source Date/Time Date/Time Type Type Clinicians Facility Department ID 2019-12-21 2019-12-21 [facility] [id number] [facility] 13:45[facility]00 13:45:00 [employer] [facility] Medicine Outpati ent Clinics 2019-09-22 2019-09-22 [facility] [id number] [facility] 08:19:00 08:19:00 [employer] [facility] Medicine Outpati ent Clinics 2019-09-20 2019-09-20 [facility] [id number] [facility] 14:00:00 14:00:00 [employer] [facility] Medicine Outpati ent Clinics 2019-06-22 2019-06-22 [facility] [id number] [facility] 11:00:00 11:00:00 [employer] [facility] Medicine Outpati ent Clinics 2019-06-14 2019-06-14 [facility] [id number] [facility] 16:59:00 16:59:00 [employer] [facility] Medicine Outpati ent Clinics 2019-05-25 2019-05-25 [facility] [id number] [facility] 15:30:00 15:30:00 [employer] [facility] Medicine Outpati ent Clinics 2019-03-29 2019-03-29 [facility] [id number] 10:30:00 10:30:00 [employer] [facility] Medicine Outpati ent Clinics 2019-03-23 2019-03-23 [facility] [id number] 08:30:00 08:30:00 [employer] [facility] ent Clinics 2018-12-27 2018-12-27 [facility] [id number] [facility] 13:00:00 13:00:00 [employer] [facility] ent [facility] 2018-10-27 2018-10-27 [facility] [id number] [facility] 13:00:00 13:00:00 [employer] [facility] ent Clinics Results This patient has no known results.
[2020-03-29 14:56] LABS: Absolute Lymphocytes (CBC) 0.8 K/uL (0.7-4.9); Basophils % 0.3 % (0-1.3); Hematocrit 42.8 % (39.6-49.0); Lymphocytes % 11.6 % (15.3-44.8); MPV 8.7 fL (7.6-11.3); RBC Red Blood Cell Count 4.86 M/uL (4.33-5.43)
[2020-03-29 15:00] LABS: Protime INR 1.1
[2020-03-29 15:24] LABS: ALT/SGPT 20 U/L (12-78); AST/SGOT 38 U/L (15-37); Albumin 3.1 g/dL (3.4-5.0); Alkaline Phosphatase 74 U/L (45-117); BUN Blood Urea Nitrogen 24 mg/dL (7-18); Bicarbonate 16 mmol/L (21-32); Bilirubin Direct 0.2 mg/dL (0-0.2); Bilirubin Total 0.6 mg/dL (0.2-1.0); Glucose Level 213 mg/dL (74-106); Magnesium 2.3 mg/dL (1.8-2.4); NT PRO-BNP 411 pg/mL (<450); Potassium 4.2 mmol/L (3.5-5.1); Protein, Total 8.2 g/dL (6.4-8.2); Sodium Level 132 mmol/L (136-145); Troponin (Emerg Dept Use Only) < 0.02 ng/mL (0.0-0.045)
--- NOTE | 2020-03-29 15:49 | RAD REPORT ---
EXAM DESCRIPTION: Romaine Single View03/29/2020 2:47 pm CLINICAL HISTORY: Shortness of breath COMPARISON: 2019 FINDINGS: [id number] bilateral pulmonary opacities. Heart is normal size IMPRESSION: [id number] bilateral pulmonary opacities may represent pneumonia or pulmonary reji a
[2020-03-29] MEDS ORDERED: Ringers Lactate 1,000 ML IV ONE (15:57)
--- NOTE | 2020-03-29 16:06 | ER ---
Nurse's Notes [facility] Name: David Escudero Age: 84 yrs Sex: Male : 1935 Arrival Date: 03/29/2020 Time: 13:34 Bed 16 Private MD: Danny Brown Diagnosis: Pneumonia due to other specified bacteria;Dehydration;Acute respiratory failure with hypoxia Presentation: 03/29 14:02 Chief complaint: Patient's son or daughter states: Adult daughter to bedside to 2 translate, states her father hasnt been eating for past 3-4 days, and hasnt had a BM since last 4 days. states that's abnormal for him, has DM type 2 and takes metformin for that but that's it. is only allergic to fish. states he has no PMHX other than DM2, has no pain, but does get short of breath. Chief complaint: when pt was hooked up to monitor O2 sats were between 86-88, NC applied at 3L, O2 improved to 92%. Coronavirus screen: Client denies travel out of the [place] in the last 14 days. shortness of breath. Ebola Screen: Patient negative for fever greater than or equal to 101.5 degrees Fahrenheit, and additional compatible Ebola Virus Disease symptoms. Initial Sepsis Screen: Does the patient meet any 2 criteria? No. Patient's initial sepsis screen is negative. Does the patient have a suspected source of infection? No. Patient's initial sepsis screen is negative. Risk Assessment: Do you want to hurt yourself or someone else? Patient reports no desire to harm self or others. Onset of symptoms was March 25, 2020. 14:02 Method Of Arrival: Ambulatory ll2 14:02 Acuity: LOTTIE 3 ll2 Triage Assessment: 14:32 General: Appears in no apparent distress. Behavior is calm, cooperative, appropriate ll2 for age. Pain: Denies pain. EENT: No signs and/or symptoms were reported regarding the EENT system. Neuro: Level of Consciousness is awake, alert, obeys commands, Oriented to person, place, time, situation. Cardiovascular: Capillary refill < 3 seconds Patient's skin is warm and dry. Respiratory: Reports shortness of breath on exertion Airway is patent Respiratory effort is even, unlabored, Respiratory pattern is regular, symmetrical, Onset: The symptoms/episode began/occurred last 3-4 days, the patient has mild shortness of breath. GI: Reports constipation, pt states loss of appetite for last 4 days. : No signs and/or symptoms were reported regarding the genitourinary system. Derm: Skin is intact, is healthy with good turgor, Skin is dry, Skin is pink, warm \T\ dry. Skin temperature is warm. Musculoskeletal: Circulation, motion, and sensation intact. Range of motion: intact in all extremities. Historical: - Allergies: 19:36 Aspirin; ca1 - PMHx: 19:36 Diabetes - NIDDM; ca1 - Immunization history:: Adult Immunizations up to date. - Social history:: Smoking status: Patient denies any tobacco usage or history of. Screenin:43 Abuse screen: Denies threats or abuse. Nutritional screening: No deficits noted. ll2 Tuberculosis screening: No symptoms or risk factors identified. Fall Risk IV access (20 points). Ambulatory Aid- None/Bed Rest/Nurse Assist (0 pts). Gait- Normal/Bed Rest/Wheelchair (0 pts) Mental Status- Oriented to own ability (0 pts). Total Sosa Fall Scale indicates No Risk (0-24 pts). Assessment: 14:40 Reassessment: see triage assessment. ll2 14:44 Cardiovascular: Rhythm is sinus rhythm. Respiratory: Airway is patent Respiratory ll2 effort is even, unlabored, Respiratory pattern is regular, symmetrical, Breath sounds with crackles bilaterally. 15:49 Reassessment: No changes from previously documented assessment. Patient and/or family ll2 updated on plan of care and expected duration. Pain level reassessed. Patient is alert, oriented x 3, equal unlabored respirations, skin warm/dry/pink. 16:21 Reassessment: No changes from previously documented assessment. Patient and/or family ll2 updated on plan of care and expected duration. Pain level reassessed. Patient is alert, oriented x 3, equal unlabored respirations, skin warm/dry/pink. 17:25 Reassessment: No changes from previously documented assessment. Patient and/or family ll2 updated on plan of care and expected duration. Pain level reassessed. Patient is alert, oriented x 3, equal unlabored respirations, skin warm/dry/pink. pt resting comfortably waiting for room. 18:26 Reassessment: Patient appears in no apparent distress at this time. Patient and/or ca1 family updated on plan of care and expected duration. Pain level reassessed. Patient is alert, oriented x 3, equal unlabored respirations, skin warm/dry/pink. 19:36 Reassessment: Patient appears in no apparent distress at this time. Patient and/or ca1 family updated on plan of care and expected duration. Pain level reassessed. Patient is alert, oriented x 3, equal unlabored respirations, skin warm/dry/pink. 19:38 Reassessment: Called for report. Nurse will call back. ca1 20:19 Reassessment: Patient appears in no apparent distress at this time. Patient and/or ca1 family updated on plan of care and expected duration. Pain level reassessed. Patient is alert, oriented x 3, equal unlabored respirations, skin warm/dry/pink. Pt awaiting COVID result before transfer to floor. 21:20 Reassessment: Patient appears in no apparent distress at this time. Patient is alert, ca1 oriented x 3, equal unlabored respirations, skin warm/dry/pink. 21:46 Reassessment: Patient appears in no apparent distress at this time. Patient is alert, ca1 oriented x 3, equal unlabored respirations, skin warm/dry/pink. Vital Signs: 14:02 BP 125 / 67; Pulse 88; Resp 18; Temp 98.3; Pulse Ox 92% on 3 lpm NC; ll2 14:39 BP 125 / 67; Pulse 88; Resp 18; Temp 98.3; Pulse Ox 92% on 3 lpm NC; ll2 14:40 BP 116 / 68; Pulse 83; Resp 34; Pulse Ox 95% on 3 lpm NC; ll2 15:41 BP 115 / 68; Pulse 82; Resp 30; Pulse Ox 95% on 3 lpm NC; ll2 16:30 BP 113 / 76; Pulse 82; Resp 34; Pulse Ox 95% 3 lpm ; ll2 17:29 BP 117 / 68; Pulse 80; Resp 30; Pulse Ox 93% 3 lpm ; ll2 18:26 BP 124 / 65; Pulse 79; Resp 30 S; Pulse Ox 94% on 3 lpm NC; ca1 19:36 BP 111 / 50; Pulse 78; Resp 25 S; Pulse Ox 97% on 3 lpm NC; ca1 20:19 BP 128 / 73; Pulse 84; Resp 24 S; Pulse Ox 97% on 3 lpm NC; ca1 21:30 BP 144 / 79; Pulse 101; Resp 28 S; Pulse Ox 95% on 2 lpm NC; ca1 ED Course: 13:34 Patient arrived in ED. ag5 13:35 Danny Brown DO is Private Physician. ag5 13:53 Anthony Delcid PA is PHCP. jr8 13:53 Rick Wolfe MD is Attending Physician. jr8 14:02 Bridgette Tony RN is Primary Nurse. ll2 14:10 Triage completed. ll2 14:43 Inserted saline lock: 20 gauge in left antecubital area, using aseptic technique. Blood dh4 collected. 14:43 Patient has correct armband on for positive identification. Call light in reach. Side ll2 rails up X2. Adult w/ patient. monitoring and evaluation advisor on. Pulse ox on. NIBP on. 14:47 XRAY Chest (1 view) In Process Unspecified. EDMS 14:50 Arm band placed on left wrist. EKG completed in triage. Results shown to MD. ll2 16:05 Oma Davis MD is Hospitalizing Provider. jr8 17:25 Initial lab(s) drawn, by ED staff, First set of blood cultures drawn by ED staff. ll2 19:37 No provider procedures requiring assistance completed. Patient admitted, IV remains in ca1 place. Administered Medications: 15:48 Drug: Ringers - Lactated Ringers Solution 1000 ml Route: IV; Rate: bolus; Site: left ll2 antecubital; 17:10 Follow up: Response: No adverse reaction; IV Status: Completed infusion ll2 16:21 Drug: Rocephin 1 grams Route: IV; Rate: calculated rate; Site: left antecubital; ll2 17:00 Follow up: Response: No adverse reaction; IV Status: Completed infusion ca1 16:21 Drug: Zithromax 500 mg Route: IVPB; Infused Over: 1 hrs; Site: left antecubital; ll2 17:30 Follow up: Response: No adverse reaction; IV Status: Completed infusion; IV Intake: ca1 250ml Intake: 17:30 IV: 250ml; Total: 250ml. ca1 Outcome: 16:05 Decision to Hospitalize by Provider. jr8 21:44 Admitted to ICU accompanied by tech, via wheelchair, room -3, with chart, Report called ca1 to CARMELINA Donahue 21:44 Condition: stable 21:44 Instructed on the need for admit. 22:18 Patient left the ED. ca1 Signatures: Dispatcher [employer] EDMS Anthony Delcid PA PA jr8 Sary Rubalcava, RN RN ca1 Rizwana Christopher ag5 Lul Escobar 4 Bridgette Tony, CARMELINA RN ll2 Corrections: (The following items were deleted from the chart) 17:30 15:41 BP 115 / 68; Pulse 82bpm; Resp 30bpm; Pulse Ox 95% 2 lpm Nasal Cannula; ll2 ll2
--- NOTE | 2020-03-29 16:06 | EDPHYS ---
Physician Documentation [facility] Name: David Escudero Age: 84 yrs Sex: Male : 1935 Arrival Date: 03/29/2020 Time: 13:34 Bed 16 Private MD: Kevin [facility] ED Physician Rick Wolfe HPI: 03/29 16:02 This 84 yrs old Male presents to ER via Ambulatory with complaints of jr8 Breathing Difficulty, Decreased Appetite, constipation. 16:02 The pt presents for sob, malaise, decreased appetite, and no BM x 3 days. The pt states jr8 that he had similar symptoms when he had pneumonia 6 months ago. Denies CP, but states that he experiences SOB at rest. Denies any aggravating or alleviating factors. Denies fever, abdominal pain, dizziness, or any other symptoms.. Historical: - Allergies: 19:36 Aspirin; ca1 - PMHx: 19:36 Diabetes - NIDDM; ca1 - Immunization history:: Adult Immunizations up to date. - Social history:: Smoking status: Patient denies any tobacco usage or history of. ROS: 16:02 Eyes: Negative for injury, pain, redness, and discharge, ENT: Negative for injury, jr8 pain, and discharge, Neck: Negative for injury, pain, and swelling, Cardiovascular: Negative for chest pain, palpitations, and edema, Abdomen/GI: Negative for abdominal pain, nausea, vomiting, diarrhea, and constipation, Back: Negative for injury and pain, MS/Extremity: Negative for injury and deformity, Skin: Negative for injury, rash, and discoloration, Neuro: Negative for headache, weakness, numbness, tingling, and seizure. 16:02 Constitutional: Positive for fatigue, poor PO intake. 16:02 Respiratory: Positive for dyspnea on exertion, shortness of breath. Exam: 16:02 Eyes: Pupils equal round and reactive to light, extra-ocular motions intact. Lids and jr8 lashes normal. Conjunctiva and sclera are non-icteric and not injected. Cornea within normal limits. Periorbital areas with no swelling, redness, or edema. ENT: Nares patent. No nasal discharge, no septal abnormalities noted. Tympanic membranes are normal and external auditory canals are clear. Oropharynx with no redness, swelling, or masses, exudates, or evidence of obstruction, uvula midline. Mucous membranes moist. Neck: Trachea midline, no thyromegaly or masses palpated, and no cervical lymphadenopathy. Supple, full range of motion without nuchal rigidity, or vertebral point tenderness. No Meningismus. Cardiovascular: Regular rate and rhythm with a normal S1 and S2. No gallops, murmurs, or rubs. Normal PMI, no JVD. No pulse deficits. Abdomen/GI: Soft, non-tender, with normal bowel sounds. No distension or tympany. No guarding or rebound. No evidence of tenderness throughout. Back: No spinal tenderness. No costovertebral tenderness. Full range of motion. Skin: Warm, dry with normal turgor. Normal color with no rashes, no lesions, and no evidence of cellulitis. MS/ Extremity: Pulses equal, no cyanosis. Neurovascular intact. Full, normal range of motion. Neuro: Awake and alert, GCS 15, oriented to person, place, time, and situation. Cranial nerves II-XII grossly intact. Motor strength 5/5 in all extremities. Sensory grossly intact. 16:02 Respiratory: mild respiratory distress is noted, Respirations: tachypnea, that is mild, Breath sounds: rales, that are mild, are located in both bases. Vital Signs: 14:02 BP 125 / 67; Pulse 88; Resp 18; Temp 98.3; Pulse Ox 92% on 3 lpm NC; ll2 14:39 BP 125 / 67; Pulse 88; Resp 18; Temp 98.3; Pulse Ox 92% on 3 lpm NC; ll2 14:40 BP 116 / 68; Pulse 83; Resp 34; Pulse Ox 95% on 3 lpm NC; ll2 15:41 BP 115 / 68; Pulse 82; Resp 30; Pulse Ox 95% on 3 lpm NC; ll2 16:30 BP 113 / 76; Pulse 82; Resp 34; Pulse Ox 95% 3 lpm ; ll2 17:29 BP 117 / 68; Pulse 80; Resp 30; Pulse Ox 93% 3 lpm ; ll2 18:26 BP 124 / 65; Pulse 79; Resp 30 S; Pulse Ox 94% on 3 lpm NC; ca1 19:36 BP 111 / 50; Pulse 78; Resp 25 S; Pulse Ox 97% on 3 lpm NC; ca1 20:19 BP 128 / 73; Pulse 84; Resp 24 S; Pulse Ox 97% on 3 lpm NC; ca1 21:30 BP 144 / 79; Pulse 101; Resp 28 S; Pulse Ox 95% on 2 lpm NC; ca1 MDM: 13:53 Patient medically screened. [facility] 16:02 Data reviewed: vital signs, nurses notes, lab test result(s), EKG, radiologic studies, [facility] plain films. Data interpreted: Pulse oximetry: on 2L(s) per nasal canula, is 92 %. Interpretation: acceptable. Counseling: I had a detailed discussion with the patient and/or guardian regarding: the historical points, exam findings, and any diagnostic results supporting the discharge/admit diagnosis, lab results, radiology results, the need for further work-up and treatment in the hospital. 03/29 14:05 Order name: Basic Metabolic Panel; Complete Time: 15:33 [facility] 03/29 14:05 Order name: CBC with Diff; Complete Time: 15:18 [facility] 03/29 14:05 Order name: LFT's; Complete Time: 15:33 [facility] 03/29 14:05 Order name: Magnesium; Complete Time: 15:33 [facility] 03/29 14:05 Order name: NT PRO-BNP; Complete Time: 15:33 [facility] 03/29 14:05 Order name: PT-INR; Complete Time: 15:06 [facility] 03/29 14:05 Order name: Troponin (emerg Dept Use Only); Complete Time: 15:33 [facility] 03/29 14:06 Order name: Blood Culture Adult (2) [facility] 03/29 14:06 Order name: Procalcitonin; Complete Time: 15:43 [facility] 03/29 15:43 Order name: Urine Microscopic Only; Complete Time: 16:09 [facility] 03/29 15:46 Order name: COVID-19 [facility] 03/29 16:50 Order name: Urine Dipstick--Ancillary (enter results); Complete Time: 17:53 em1 03/29 16:52 Order name: CBC with Automated Diff [facility] 03/29 16:52 Order name: CBC with Automated Diff [facility] 03/29 14:05 Order name: XRAY Chest (1 view); Complete Time: 15:53 [facility] 03/29 16:52 Order name: Comprehensive Metabolic Panel [facility] 03/29 16:52 Order name: Comprehensive Metabolic Panel [facility] 03/29 16:52 Order name: Lactate [facility] 03/29 16:52 Order name: Lactate [facility] 03/29 16:52 Order name: Magnesium [facility] 03/29 16:52 Order name: Magnesium [facility] 03/29 16:52 Order name: NT PRO-BNP [facility] 03/29 16:52 Order name: NT PRO-BNP [facility] 03/29 16:52 Order name: Phosphorus [facility] 03/29 16:52 Order name: Phosphorus [facility] 03/29 16:52 Order name: Procalcitonin [facility] 03/29 16:52 Order name: Procalcitonin [facility] 03/29 21:31 Order name: SARS-COV-2 RT PCR [facility] 03/29 14:05 Order name: EKG; Complete Time: 14:06 [facility] 03/29 14:05 Order name: Cardiac monitoring; Complete Time: 14:30 [facility] 03/29 14:05 Order name: EKG - Nurse/Tech; Complete Time: 14:30 [facility] 03/29 14:05 Order name: IV Saline Lock; Complete Time: 14: [facility] 03/29 14:05 Order name: Labs collected and sent; Complete Time: 14: [facility] 03/29 14:05 Order name: O2 Per Protocol; Complete Time: 14:31 [facility] 03/29 14:05 Order name: O2 Sat Monitoring; Complete Time: 14: [facility] 03/29 15:43 Order name: Urine Dipstick-Ancillary (obtain specimen); Complete Time: 15:49 [facility] 03/29 16:52 Order name: CONS Physician Consult [facility] 03/29 16:52 Order name: Heart Healthy [facility] Administered Medications: 15:48 Drug: Ringers - Lactated Ringers Solution 1000 ml Route: IV; Rate: bolus; Site: left ll2 antecubital; 17:10 Follow up: Response: No adverse reaction; IV Status: Completed infusion 2 16:21 Drug: Rocephin 1 grams Route: IV; Rate: calculated rate; Site: left antecubital; ll2 17:00 Follow up: Response: No adverse reaction; IV Status: Completed infusion ca1 16:21 Drug: Zithromax 500 mg Route: IVPB; Infused Over: 1 hrs; Site: left antecubital; ll2 17:30 Follow up: Response: No adverse reaction; IV Status: Completed infusion; IV Intake: ca1 250ml Disposition: 03/29/20 16:05 Hospitalization ordered by Oma Davis for Inpatient Admission. Preliminary diagnosis are Pneumonia due to other specified bacteria, Dehydration, Acute respiratory failure with hypoxia. - Bed requested for Intensive Care Unit. - Status is Inpatient Admission. ca1 - Condition is Stable. - Problem is new. - Symptoms have improved. Addendum: 04/03/2020 19:07 Co-signature as Attending Physician, Rick Wolfe MD. r n Signatures: Dispatcher [employer] EDFilomena Mahoney RN RN dw Rick Wolfe MD MD rn Roszak, Josh, KELSY PA jr8 Krystina Leone RN RN tl1 Sary Rubalcava RN RN ca1 Bridgette Tony RN RN ll2 Corrections: (The following items were deleted from the chart) 03/29 18:33 16:05 Hospitalization Ordered by Oma Davis MD for Inpatient Admission. Preliminary dw diagnosis is Pneumonia due to other specified bacteria; Dehydration; Acute respiratory failure with hypoxia. Bed requested for Telemetry/MedSurg (Inpatient). Status is Inpatient Admission. Condition is Stable. Problem is new. Symptoms have improved. jr8 21:36 18:33 03/29/2020 16:05 Hospitalization Ordered by Oma Davis MD for Inpatient tl1 Admission. Preliminary diagnosis is Pneumonia due to other specified bacteria; Dehydration; Acute respiratory failure with hypoxia. Bed requested for Telemetry/MedSurg (Inpatient). Status is Inpatient Admission. Condition is Stable. Problem is new. Symptoms have improved. dw 22:18 21:36 03/29/2020 16:05 Hospitalization Ordered by Oma Davis MD for Inpatient ca1 Admission. Preliminary diagnosis is Pneumonia due to other specified bacteria; Dehydration; Acute respiratory failure with hypoxia. Bed requested for Intensive Care Unit. Status is Inpatient Admission. Condition is Stable. Problem is new. Symptoms have improved. tl1
[2020-03-29 16:07] LABS: Urine Bacteria <20 /HPF (NONE SEEN); Urine Culture Reflex Order NOT NEEDED; Urine RBC <5 /HPF (NONE SEEN)
[2020-03-29] MEDS ORDERED: AZITHROMYCIN 500 MG INJ IVPB ONE (16:20)
[2020-03-29] MEDS ORDERED: NA CHLORIDE 0.9% 250 ML ONE (16:20)
[2020-03-29] MEDS ORDERED: CEFTRIAXONE/SWI 1gm 1 GM/10 ML SYR ONE (16:21)
[2020-03-29] MEDS ORDERED: ONDANSETRON 4 MG/2 ML VIAL IV PRN (16:46)
[2020-03-29] MEDS ORDERED: ACETAMINOPHEN 500 MG TAB PO PRN (16:46)
[2020-03-29] MEDS ORDERED: Levofloxacin500mg IV 500 MG/100 ML BAG IV SCH (17:00)
[2020-03-29 17:34] LABS: Urine Blood NEGATIVE (NEG); Urine Glucose 2+ (NEG); Urine Protein 1+ (NEG); Urine Specific Gravity 1.015 (1.005-1.030); Urine pH 5.5 (5.0-7.0)
[2020-03-29] MEDS: PIPER/TAZO/NS 3.375gm 3.375 GM/100 ML BAG IVPB SCH ×2 (18:00→23:19)
[2020-03-29] MEDS: ALBUTEROL 2.5 MG/3 ML NEB SOL NEB SCH (20:00)
[2020-03-29] MEDS: IPRATROPIUM BROM 0.5MG/2.5ML NEB SCH (20:00)
[2020-03-29] MEDS ORDERED: IPRATROPIUM BROM 0.5MG/2.5ML ONE (20:34)
[2020-03-29] MEDS ORDERED: ALBUTEROL 2.5 MG/3 ML NEB SOL ONE (20:34)
[2020-03-29] MEDS: NA CHLORIDE 0.9% 1,000 ML IV SCH (23:07)
[2020-03-29] MEDS: ENOXAPARIN 40 MG/0.4 ML SQ SCH (23:08)
[2020-03-29] MEDS ORDERED: NA CHLORIDE 0.9% 100 ML ONE (23:22)
[2020-03-29] MEDS ORDERED: PIPERACIL/TAZO 3.375 GM VIAL IV ONE (23:22)
[2020-03-30] MEDS: NA CHLORIDE 0.9% 1,000 ML IV SCH (00:54)
[2020-03-30] MEDS: ALBUTEROL 2.5 MG/3 ML NEB SOL NEB SCH (02:00)
[2020-03-30] MEDS: IPRATROPIUM BROM 0.5MG/2.5ML NEB SCH (02:00)
[2020-03-30 02:12] LABS: Absolute Lymphocytes (CBC) 0.7 K/uL (0.7-4.9); Basophils % 0.4 % (0-1.3); Hematocrit 40.5 % (39.6-49.0); Lymphocytes % 10.4 % (15.3-44.8); MPV 8.6 fL (7.6-11.3)
[2020-03-30 02:39] LABS: Blood Morphology Comment NOT SEEN (NOT SEEN); Platelet Estimate ADEQ
[2020-03-30 02:40] LABS: Albumin 2.7 g/dL (3.4-5.0); Bilirubin Total 0.5 mg/dL (0.2-1.0); Phosphorus 2.4 mg/dL (2.5-4.9); Potassium 4.2 mmol/L (3.5-5.1); Protein, Total 7.2 g/dL (6.4-8.2)
[2020-03-30] MEDS: PIPER/TAZO/NS 3.375gm 3.375 GM/100 ML BAG IVPB SCH (05:16)
[2020-03-30] MEDS ORDERED: NA CHLORIDE 0.9% 100 ML ONE (05:26)
[2020-03-30] MEDS ORDERED: PIPERACIL/TAZO 3.375 GM VIAL IV ONE (05:26)
[2020-03-30] MEDS ORDERED: METHYLPREDNISOLONE 125 MG INJ IV ONE (06:20)
[2020-03-30] MEDS ORDERED: ALBUTEROL INHALER 60 PUFF/8 GM IH PRN (06:24)
[2020-03-30] MEDS ORDERED: NA CHLORIDE 0.9% 1,000 ML IV SCH (06:24)
--- NOTE | 2020-03-30 06:30 | P.HP ---
Certification for Inpatient Patient admitted to: Inpatient With expected LOS: >2 Midnights Patient will require the following post-hospital care: None Practitioner: I am a practitioner with admitting privileges, knowledge of patient current condition, hospital course, and medical plan of care. Services: Services provided to patient in accordance with Admission requirements found in Title 42 Section 412.3 of the Code of Federal Regulations Patient History Date of Service: 03/29/20 Reason for admission: shortness of breath History of Present Illness: The patient is an 84-year-old gentleman who came to the hospital with difficulty breathing. Patient has not been really complaining for the last few days except for a headache. However, the family noticed that he was not breathing well. He went to his PCP, Dr. Brown, who advised him to go to the emergency room. Patient was seen in the emergency room and chest x-ray revealed bilateral basilar pneumonia. Patient was initially felt to have bilateral pneumonia. COVID-19 testing was pending. It has come back positive. The patient will be admitted to the ICU for COVID-19 patients. Patient is slightly hypoxic and tachypneic and will monitor him closely in the ICU and check inflammatory markers as well. The patient denies any history of smoking. Has a history of diabetes and is on oral medications for this. He apparently does have family in [place]. Otherwise, no sick contacts. Allergies aspirin Allergy (Verified 03/30/20 01:25) Rash Home Medications: Empagliflozin [Jardiance] 10 mg PO DAILY 09/22/18 Metformin HCl 1,000 mg PO BID 09/22/18 Sitagliptin Phosphate [Januvia*] 100 mg PO DAILY 09/22/18 Famotidine [Pepcid*] 20 mg PO BID #60 tab 09/26/18 Ferrous Sulfate [Iron] 325 mg PO BID #60 tablet 09/26/18 levoFLOXacin [Levaquin*] 500 mg PO DAILY #2 tab 09/26/18 traMADol HCL [Ultram*] 50 mg PO TID PRN #15 tab 09/26/18 - Past Medical/Surgical History Has patient received pneumonia vaccine in the past: No Diabetic: No -: DM -: Left hand surgery Psychosocial/ Personal History: Patient is - Social History Smoking Status: Never smoker Alcohol use: No CD- Drugs: No Caffeine use: Yes Place of Residence: Home Review of Systems 10-point ROS is otherwise unremarkable Physical Examination - Vital Signs Temperature: 99.5 F Blood Pressure: 113/63 Pulse: 90 Respirations: 32 Pulse Ox (%): 92 - Physical Exam General: Alert, In no apparent distress, Oriented x3 HEENT: Atraumatic, PERRLA, Mucous membr. moist/pink, EOMI, Sclerae nonicteric Neck: Supple, 2+ carotid pulse no bruit, No LAD, Without JVD or thyroid abnormality Respiratory: Diminished, Expiratory wheezes Cardiovascular: Regular rate/rhythm, Normal S1 S2, No murmurs Gastrointestinal: Normal bowel sounds, Soft and benign, Non-distended, No tenderness Musculoskeletal: No clubbing, No swelling, No tenderness Integumentary: No rashes Neurological: Normal strength at 5/5 x4 extr, Normal tone, Sensation intact, Cranial nerves 3-12 intact, Normal affect Lymphatics: No axilla or inguinal lymphadenopathy - Studies Laboratory Data (last 24 hrs) 03/29/20 14:30: PT 13.0 H, INR 1.10 03/29/20 14:30: WBC 7.2, Hgb 14.5, Hct 42.8, Plt Count 242 03/29/20 14:30: Sodium 132 L, Potassium 4.2, BUN 24 H, Creatinine 1.15, Glucose 213 H, Magnesium 2.3 D, Total Bilirubin 0.6, AST 38 H, ALT 20, Alkaline Phosphatase 74 Assessment & Plan - Problems (Diagnosis) (1) Pneumonia due to COVID-19 virus Current Visit: Yes Status: Acute (2) Hypoxemia Current Visit: Yes Status: Acute (3) History of diabetes mellitus, type II Current Visit: Yes Status: Acute - Plan 1. Continue with IV antibiotics along with IV steroids 2. COVID-19 pneumonia 3. Repeat chest x-ray if symptoms are progressively worsening 4. O2 per protocol 5. Pulmonary consultation 6. Continue with albuterol inhaler therapy; 7. Repeat labs including D-dimer, ferritin, and CRP and LFTs 8. GI and DVT prophylaxis Discharge Plan: Home Plan to discharge in: Greater than 2 days - Advance Directives Does patient have a Living Will: No Does patient have a Durable POA for Healthcare: No - Code Status/Comfort Care Code Status Assessed: Yes Code Status: Full Code Critical Care: No Time Spent Managing PTS Care (In Minutes): 45
--- NOTE | 2020-03-30 06:37 | P.PN ---
Subjective Date of Service: 03/30/20 Chart reviewed; patient hypoxic. IV steroids. Continuing high-flow oxygen Review of Systems 10-point ROS is otherwise unremarkable Physical Examination - Vital Signs Temperature: 99.5 F Blood Pressure: 113/63 Pulse: 90 Respirations: 32 Pulse Ox (%): 92 - Physical Exam General: Alert, In no apparent distress, Oriented x3 Respiratory: Diminished, Expiratory wheezes Cardiovascular: Regular rate/rhythm, Normal S1 S2, No murmurs Gastrointestinal: Normal bowel sounds, Soft and benign, Non-distended, No tenderness Musculoskeletal: No clubbing, No swelling, No tenderness Neurological: Sensation intact, Cranial nerves 3-12 intact - Studies Laboratory Data (last 24 hrs) 03/29/20 14:30: PT 13.0 H, INR 1.10 03/29/20 14:30: WBC 7.2, Hgb 14.5, Hct 42.8, Plt Count 242 03/29/20 14:30: Sodium 132 L, Potassium 4.2, BUN 24 H, Creatinine 1.15, Glucose 213 H, Magnesium 2.3 D, Total Bilirubin 0.6, AST 38 H, ALT 20, Alkaline Phosphatase 74 Medications List Reviewed: Yes Assessment & Plan - Problems (Diagnosis) (1) Pneumonia due to COVID-19 virus Current Visit: Yes Status: Acute (2) Hypoxemia Current Visit: Yes Status: Acute (3) History of diabetes mellitus, type II Current Visit: Yes Status: Acute - Plan Continue with plan of care as mentioned below: 1. Continue with IV antibiotics along with IV steroids 2. COVID-19 pneumonia 3. Repeat chest x-ray if symptoms are progressively worsening 4. O2 per protocol 5. Pulmonary consultation 6. Continue with albuterol inhaler therapy; 7. Repeat labs including D-dimer, ferritin, and CRP and LFTs 8. GI and DVT prophylaxis Discharge Plan: Home Plan to discharge in: Greater than 2 days - Advance Directives Does patient have a Living Will: No Does patient have a Durable POA for Healthcare: No - Code Status/Comfort Care Code Status: Full Code Critical Care: Yes Time Spent Managing PTS Care (In Minutes): 35
[2020-03-30 07:52] LABS: Ferritin 616.9 ng/mL (26-388)
[2020-03-30] MEDS ORDERED: POTASS/SODIUM PHOSPHATE 1 PKT POWD.PACK PO ONE (08:00)
[2020-03-30] MEDS: ENOXAPARIN 40 MG/0.4 ML SQ SCH (08:59)
--- NOTE | 2020-03-30 11:26 | P.CNS ---
Date of Consult: 03/30/20 (Telephone visit) Reason for Consult: Pneumonia due to saha virus Chief Complaint: shortness of breath History of Present Illness: Patient is 84 years of age admitted with shortness of breath sent to the emergency room chest x-ray showed bilateral pneumonia tested positive for saha virus right now eyes requiring high concentrations of oxygen Allergies aspirin Allergy (Verified 03/30/20 01:25) Rash Home Medications: Empagliflozin [Jardiance] 10 mg PO DAILY 09/22/18 Metformin HCl 1,000 mg PO BID 09/22/18 Sitagliptin Phosphate [Januvia*] 100 mg PO DAILY 09/22/18 Famotidine [Pepcid*] 20 mg PO BID #60 tab 09/26/18 Ferrous Sulfate [Iron] 325 mg PO BID #60 tablet 09/26/18 levoFLOXacin [Levaquin*] 500 mg PO DAILY #2 tab 09/26/18 traMADol HCL [Ultram*] 50 mg PO TID PRN #15 tab 09/26/18 - Past Medical/Surgical History Diabetic: No -: DM -: Left hand surgery Psychosocial/ Personal History: Patient is - Social History Alcohol use: No CD- Drugs: No Caffeine use: Yes Place of Residence: Home Physical Examination Temp Pulse Resp BP Pulse Ox 99.5 F 85 34 H 120/64 89 L 03/30/20 06:37 03/30/20 11:00 03/30/20 11:00 03/30/20 11:00 03/30/20 11:00 Laboratory Data (last 24 hrs) 03/29/20 14:30: PT 13.0 H, INR 1.10 03/29/20 14:30: WBC 7.2, Hgb 14.5, Hct 42.8, Plt Count 242 03/29/20 14:30: Sodium 132 L, Potassium 4.2, BUN 24 H, Creatinine 1.15, Glucose 213 H, Magnesium 2.3 D, Total Bilirubin 0.6, AST 38 H, ALT 20, Alkaline Phospha tase 74 - Problems (1) Acute respiratory distress syndrome (ARDS) due to 2019 novel coronavirus Current Visit: Yes Status: Acute Plan: Patient is 84 years of age admitted with respiratory distress is got bilateral interstitial changes diagnosed positive with saha virus he has had a mild t emperature change him over to p.o. Zithromax Dc IV levofloxacin and Zosyn reduce his Solu-Medrol to 120 mg Q 12 monitor CRP levels Dc IV fluids low-dose diuretics multi vitamin supplements full anticoagulation trial of BiPAP continue to titrate O2 to sat down to 85-90% multi vitamin supplementation
[2020-03-30] MEDS: THIAMINE HCL 100 MG TABLET PO SCH (12:00)
[2020-03-30] MEDS ORDERED: METHYLPREDNISOLONE 125 MG INJ IV SCH (12:00)
[2020-03-30] MEDS: APIXABAN 5 MG TABLET PO SCH ×2 (12:00→21:58)
[2020-03-30] MEDS: SPIRONOLACTONE 25 MG TABLET PO SCH (12:01)
[2020-03-30] MEDS: VITAMIN D 1000 UNIT TAB PO SCH (12:02)
[2020-03-30] MEDS: GLUCERNA SHAKE 237 ML CAN PO SCH (21:00)
[2020-03-30] MEDS: MELATONIN 3 MG TABLET PO SCH (21:58)
[2020-03-30] MEDS: ATORVASTATIN 40 MG TAB PO SCH (21:58)
[2020-03-30] MEDS: METHYLPREDNISOLONE 125 MG INJ IV SCH (21:58)
[2020-03-31] MEDS: APIXABAN 5 MG TABLET PO SCH ×2 (08:31→22:14)
[2020-03-31] MEDS: THIAMINE HCL 100 MG TABLET PO SCH (08:31)
[2020-03-31] MEDS: SPIRONOLACTONE 25 MG TABLET PO SCH (08:31)
[2020-03-31] MEDS: VITAMIN D 1000 UNIT TAB PO SCH (08:31)
[2020-03-31] MEDS: GLUCERNA SHAKE 237 ML CAN PO SCH ×2 (08:32→21:00)
[2020-03-31] MEDS: METHYLPREDNISOLONE 125 MG INJ IV SCH ×2 (08:32→22:13)
[2020-03-31] MEDS: AZITHROMYCIN 250 MG TAB PO SCH (09:32)
--- NOTE | 2020-03-31 11:31 | P.PN ---
Subjective Date of Service: 03/31/20 (TV) Chief Complaint: ARDS from COVID Subjective: Improving (Stable. Still requiring BIPAP) Review of Systems Respiratory: Shortness of Breath Physical Examination - Vital Signs Temperature: 97.0 F Blood Pressure: 121/62 Pulse: 73 Respirations: 30 Pulse Ox (%): 89 - Studies Medications List Reviewed: Yes Assessment & Plan - Problems (Diagnosis) (1) Acute respiratory distress syndrome (ARDS) due to 2019 novel coronavirus Current Visit: Yes Status: Acute Plan: condition stable CRP declining. CW titrating O2 down CW solumedrol until CRP less than 50 , then dercrease Discharge Plan: Home Plan to discharge in: 48 Hours
[2020-03-31] MEDS: MELATONIN 3 MG TABLET PO SCH (22:13)
[2020-03-31] MEDS: ATORVASTATIN 40 MG TAB PO SCH (22:14)
[2020-04-01 07:20] LABS: Absolute Lymphocytes (CBC) 1.1 K/uL (0.7-4.9); Basophils % 0.1 % (0-1.3); Hematocrit 45.4 % (39.6-49.0); Lymphocytes % 3.6 % (15.3-44.8); MPV 8.3 fL (7.6-11.3); RBC Red Blood Cell Count 5.18 M/uL (4.33-5.43)
[2020-04-01 07:25] LABS: Protime INR 1.3
[2020-04-01 07:39] LABS: Albumin 2.8 g/dL (3.4-5.0); Bilirubin Direct 0.2 mg/dL (0-0.2); Bilirubin Total 0.6 mg/dL (0.2-1.0); Ferritin 638.7 ng/mL (26-388); Magnesium 2.5 mg/dL (1.8-2.4); Phosphorus 3.4 mg/dL (2.5-4.9); Potassium 4.5 mmol/L (3.5-5.1); Protein, Total 7.9 g/dL (6.4-8.2)
[2020-04-01] MEDS ORDERED: D50W 25 GM/50 ML SYRINGE/VIAL IV PRN (07:48)
[2020-04-01] MEDS ORDERED: GLUCAGON 1 MG/VIAL IM PRN (07:48)
[2020-04-01] MEDS ORDERED: METFORMIN ER 500 MG TAB PO SCH (08:00)
[2020-04-01] MEDS ORDERED: CEFEPIME 1 GM/10 ML SYR IV SCH ×2 (08:00→09:00)
[2020-04-01] MEDS: THIAMINE HCL 100 MG TABLET PO SCH (08:15)
[2020-04-01] MEDS: SPIRONOLACTONE 25 MG TABLET PO SCH (08:16)
[2020-04-01] MEDS: APIXABAN 5 MG TABLET PO SCH ×2 (08:16→20:17)
[2020-04-01] MEDS: INSULIN GLARGINE 100 UNITS/ML SQ SCH (08:16)
[2020-04-01] MEDS: VITAMIN D 1000 UNIT TAB PO SCH (08:16)
[2020-04-01] MEDS: INSULIN -REGULAR HUMAN 50 UNIT/0.5 ML ML SQ SCH ×4 (08:17→21:18)
[2020-04-01] MEDS: AZITHROMYCIN 250 MG TAB PO SCH (08:17)
[2020-04-01] MEDS: METHYLPREDNISOLONE 125 MG INJ IV SCH ×2 (08:18→20:18)
[2020-04-01] MEDS ORDERED: SITAGLIPTIN PHOS 100 MG TAB PO SCH (09:00)
--- NOTE | 2020-04-01 09:11 | RAD REPORT ---
EXAM DESCRIPTION: RAD - Chest Single View - 04/01/2020 8:48 am CLINICAL HISTORY: COVID; Pneumonia COMPARISON: Portable March 29 TECHNIQUE: AP portable chest image was obtained 04/01/2020 8:48 am . FINDINGS: Lung volumes are low. Interstitial markings are prominent but improved slightly from isidro rison. No new mass or consolidation. Heart and vasculature are normal. No measurable pleural effusion and no pneumothorax. No acute bony abnormality seen. No acute aortic findings suspected. IMPRESSION: Partial clearing of bilateral lung base edema or infiltrates.
[2020-04-01 09:15] LABS: Blood Morphology Comment NOT SEEN (NOT SEEN); Platelet Estimate ADEQ
[2020-04-01] MEDS: CEFEPIME/SWI 1gm 10 ML IVP SCH ×2 (09:18→20:17)
[2020-04-01] MEDS: SODIUM BICARB 50 MEQ/50ML VIAL IV ONE ×2 (09:19→09:39)
[2020-04-01 09:33] LABS: Arterial Blood Carboxyhemoglob 0.6 % (0-1.5); Blood Gas Oxyhemoglobin 81.8 % (94-97); Blood O2 Saturation 83.3 % (92-98.5)
[2020-04-01] MEDS: GLUCERNA SHAKE 237 ML CAN PO SCH ×2 (09:39→20:18)
[2020-04-01] MEDS ORDERED: D5W 1,000 ML with NA BICARB 8.4% 100 MEQ IV SCH ×2 (10:00)
[2020-04-01] MEDS: ATORVASTATIN 40 MG TAB PO SCH (20:17)
[2020-04-01] MEDS: MELATONIN 3 MG TABLET PO SCH (20:17)
--- NOTE | 2020-04-02 03:58 | P.PN ---
Subjective Date of Service: 03/31/20 Patient remains short of breath. Remains hypoxic. Alternating between BiPAP and high-flow. Continuing with high-dose steroids. Inflammatory markers are trending downward at this time. Continue monitoring labs every other day. Review of Systems 10-point ROS is otherwise unremarkable Physical Examination - Vital Signs Temperature: 97.9 F Blood Pressure: 136/74 Pulse: 81 Respirations: 37 Pulse Ox (%): 93 - Physical Exam General: Alert, Moderate distress HEENT: Atraumatic, PERRLA, EOMI Neck: Supple, JVD not distended Respiratory: Diminished, Expiratory wheezes Cardiovascular: Regular rate/rhythm, Normal S1 S2 Gastrointestinal: Normal bowel sounds, Soft and benign, Non-distended, No tenderness Musculoskeletal: No clubbing, No swelling, No tenderness Neurological: Sensation intact, Cranial nerves 3-12 intact - Studies Medications List Reviewed: Yes Assessment & Plan - Problems (Diagnosis) (1) Pneumonia due to COVID-19 virus Current Visit: Yes Status: Acute (2) Hypoxemia Current Visit: Yes Status: Acute (3) History of diabetes mellitus, type II Current Visit: Yes Status: Acute - Plan Continue with plan of care as mentioned below: 1. Continue with IV steroids; 2. Hold IV antibiotics 3. Repeat chest x-ray if symptoms are progressively worsening 4. Continue with BiPAP support. Alternating with high-flow. Patient continuing to go prone which helps his oxygenation. Incentive spirometry as well. 5. Pulmonary consultation appreciated 6. Continue with albuterol inhaler therapy; 7. Repeat labs including D-dimer, ferritin, and CRP and LFTs 8. strict blood sugar control 9. GI and DVT prophylaxis Discharge Plan: Home Plan to discharge in: Greater than 2 days - Advance Directives Does patient have a Living Will: No Does patient have a Durable POA for Healthcare: No - Code Status/Comfort Care Code Status Assessed: Yes Code Status: Full Code Critical Care: No Time Spent Managing PTS Care (In Minutes): 35
--- NOTE | 2020-04-02 04:04 | P.PN ---
Subjective Date of Service: 04/01/20 patient doing well with no new complaints. Patient remains tachypneic. However, in bed he looks uncomfortable. Review of Systems 10-point ROS is otherwise unremarkable Physical Examination - Vital Signs Temperature: 97.9 F Blood Pressure: 136/74 Pulse: 81 Respirations: 37 Pulse Ox (%): 93 - Physical Exam General: Alert, In no apparent distress, Cooperative Respiratory: Diminished, Crackles/rales, Rhonchi/gurgles Cardiovascular: Regular rate/rhythm, Normal S1 S2, Systolic murmur Gastrointestinal: Normal bowel sounds, Soft and benign, Non-distended, No tenderness Musculoskeletal: No clubbing, No swelling, No tenderness Neurological: Normal speech, Normal tone, Normal affect Lymphatics: No axilla or inguinal lymphadenopathy - Studies Medications List Reviewed: Yes Assessment & Plan - Problems (Diagnosis) (1) Pneumonia due to COVID-19 virus Current Visit: Yes Status: Acute (2) Hypoxemia Current Visit: Yes Status: Acute (3) History of diabetes mellitus, type II Current Visit: Yes Status: Acute - Plan Continue with plan of care as mentioned below: 1. Continue with IV steroids; 2. Resumed IV antibiotics with Cefepime 3. Chest x-ray with improvement 4. Continue with BiPAP support. FiO2 at 40%; permissive hypoxemia 5. Pulmonary consultation appreciated 6. Continue with albuterol inhaler therapy; 7. Repeat labs; may need to repeat ABG 8. strict blood sugar control 9. GI and DVT prophylaxis Discharge Plan: Home Plan to discharge in: Greater than 2 days - Advance Directives Does patient have a Living Will: No Does patient have a Durable POA for Healthcare: No - Code Status/Comfort Care Code Status: Full Code Critical Care: Yes Time Spent Managing PTS Care (In Minutes): 35
[2020-04-02 05:15] LABS: Absolute Lymphocytes (CBC) 0.9 K/uL (0.7-4.9); Basophils % 0.3 % (0-1.3); Lymphocytes % 3.8 % (15.3-44.8); MPV 8.6 fL (7.6-11.3); RBC Red Blood Cell Count 4.91 M/uL (4.33-5.43)
[2020-04-02 05:32] LABS: BUN Blood Urea Nitrogen 29 mg/dL (7-18); Bicarbonate 21 mmol/L (21-32); Glucose Level 224 mg/dL (74-106); Potassium 3.7 mmol/L (3.5-5.1); Sodium Level 142 mmol/L (136-145)
[2020-04-02] MEDS: INSULIN GLARGINE 100 UNITS/ML SQ SCH (08:54)
[2020-04-02] MEDS: INSULIN -REGULAR HUMAN 50 UNIT/0.5 ML ML SQ SCH ×4 (08:54→20:58)
[2020-04-02] MEDS: SPIRONOLACTONE 25 MG TABLET PO SCH (08:55)
[2020-04-02] MEDS: APIXABAN 5 MG TABLET PO SCH ×2 (08:55→20:57)
[2020-04-02] MEDS: AZITHROMYCIN 250 MG TAB PO SCH (08:55)
[2020-04-02] MEDS: VITAMIN D 1000 UNIT TAB PO SCH (08:55)
[2020-04-02] MEDS: THIAMINE HCL 100 MG TABLET PO SCH (08:55)
[2020-04-02] MEDS: GLUCERNA SHAKE 237 ML CAN PO SCH ×2 (08:56→20:57)
[2020-04-02] MEDS: METHYLPREDNISOLONE 125 MG INJ IV SCH ×2 (08:56→20:58)
[2020-04-02] MEDS: CEFEPIME/SWI 1gm 10 ML IVP SCH (08:57)
[2020-04-02] MEDS ORDERED: HALOPERIDOL LACT 5 MG/ML INJ IV ONE (12:01)
--- NOTE | 2020-04-02 12:31 | P.PN ---
Subjective Date of Service: 04/02/20 Chief Complaint: ARDS from COVID Subjective: Improving (Patient is steadily improving is still agitated) Physical Examination - Vital Signs Temperature: 97.9 F Blood Pressure: 144/68 Pulse: 78 Respirations: 37 Pulse Ox (%): 91 - Studies Medications List Reviewed: Yes Assessment & Plan - Problems (Diagnosis) (1) Acute respiratory distress syndrome (ARDS) due to 2019 novel coronavirus Current Visit: Yes Status: Acute Plan: Patient is ARDS from saha virus is doing better titrate O2 down to sat of 85 and 90% doubt sepsis Dc antibiotic patient is hypoxic bicarbonate is now normal chest x-rays improving CRP level declining reduce dose of Solu-Medrol add Haldol
[2020-04-02] MEDS: LORazepam 2 MG/ML VIAL IV PRN ×2 (12:46→23:08)
[2020-04-02] MEDS ORDERED: LORazepam 2 MG/ML VIAL IV ONE (13:41)
--- NOTE | 2020-04-02 14:25 | P.PN ---
Subjective Date of Service: 04/02/20 Chief Complaint: ARDS from COVID Subjective: Other (Patient somewhat confused this morning. Patient not tolerating BiPAP. Stable on high-flow oxygen) Physical Examination - Vital Signs Temperature: 97.9 F Blood Pressure: 144/68 Pulse: 78 Respirations: 37 Pulse Ox (%): 91 - Physical Exam General: Alert, Confused HEENT: Atraumatic Neck: Supple Respiratory: Clear to auscultation bilaterally, Other (Patient on high-flow oxygen. No significant tachypnea noted. 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 Continue with oxygen to maintain sats above 86%. Patient on high-flow oxygen. Patient is not appear in any distress noted likely steroid induced. Steroids to be decreased. Will monitor closely. Patient given Haldol. Will add Ativan as needed. Will try to limit sedation as best possible. Will continue to monitor closely. Reassess tomorrow. Pulmonology recommends to discontinue antibiotic therapy as bacterial infection not suspected. Continue DVT prophylaxis. 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 Will provide medication for agitation. Will try to limit sedation medication if possible. Diabetes mellitus type 2: Continue monitoring. Provide sliding scale. Time Spent Managing Pts Care (In Minutes): 55
[2020-04-02] MEDS: MELATONIN 3 MG TABLET PO SCH (20:57)
[2020-04-02] MEDS: ATORVASTATIN 40 MG TAB PO SCH (20:57)
[2020-04-03 07:20] LABS: Absolute Lymphocytes (CBC) 0.7 K/uL (0.7-4.9); Basophils % 0.3 % (0-1.3); Hematocrit 44.6 % (39.6-49.0); Lymphocytes % 2.8 % (15.3-44.8); MPV 8.8 fL (7.6-11.3); RBC Red Blood Cell Count 5.21 M/uL (4.33-5.43)
--- NOTE | 2020-04-03 07:25 | P.PN ---
Subjective Date of Service: 04/03/20 Chief Complaint: ARDS from COVID Subjective: Other (Patient still confuse. Less agitation noted. Patient requiring less medication for agitation Overnite.) Physical Examination - Vital Signs Temperature: 98.5 F Blood Pressure: 167/86 Pulse: 101 Respirations: 34 Pulse Ox (%): 92 - Physical Exam General: Alert, Other (Patient still confused.) HEENT: Atraumatic Neck: Supple Respiratory: Clear to auscultation bilaterally, Other (Currently on high-flow oxygen) Cardiovascular: Normal pulses, Regular rate/rhythm Neurological: Normal strength at 5/5 x4 extr, Other (Confusion noted) - Studies Medications List Reviewed: Yes Assessment & Plan Discharge Plan: Home Plan to discharge in: 48 Hours Physician Review Additional Text: Impression: Acute respiratory failure with hypoxia secondary to bilateral COVID 19 pneumonia 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 Patient on DVT prophylaxis. IV steroids were decreased yesterday. Will check CRP. If with decreased CRP and a less need for high-flow then will continue to decrease IV steroids or consider switching to oral. Will continue to provide medication for agitation but will limit as best possible. Will further discuss with pulmonology. Antibiotics discontinued yesterday. Anticipate improvement over the next 48 hr. 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 Will provide medication for agitation if required. Will try to limit sedation medication if possible. Will consider adjusting IV steroids to oral if with improve CRP and less oxygen demand. Diabetes mellitus type 2: Continue monitoring. Continue sliding scale as required. Elevated blood pressure: Likely from agitation. Will monitor closely. If this continues then will consider medication for hypertension. Leukocytosis likely related to IV steroids: This has improved. Continue to monitor closely. Time Spent Managing Pts Care (In Minutes): 55
[2020-04-03 07:27] LABS: BUN Blood Urea Nitrogen 31 mg/dL (7-18); Bicarbonate 22 mmol/L (21-32); Glucose Level 204 mg/dL (74-106); Magnesium 2.5 mg/dL (1.8-2.4); Potassium 3.4 mmol/L (3.5-5.1); Sodium Level 147 mmol/L (136-145)
[2020-04-03] MEDS: INSULIN -REGULAR HUMAN 50 UNIT/0.5 ML ML SQ SCH ×5 (07:43→20:09)
[2020-04-03] MEDS: GLUCERNA SHAKE 237 ML CAN PO SCH ×2 (08:58→19:16)
[2020-04-03] MEDS: INSULIN GLARGINE 100 UNITS/ML SQ SCH (10:09)
[2020-04-03] MEDS: APIXABAN 5 MG TABLET PO SCH ×2 (10:14→19:16)
[2020-04-03] MEDS: SPIRONOLACTONE 25 MG TABLET PO SCH (10:14)
[2020-04-03] MEDS: THIAMINE HCL 100 MG TABLET PO SCH (10:15)
[2020-04-03] MEDS: VITAMIN D 1000 UNIT TAB PO SCH (10:15)
[2020-04-03] MEDS: METHYLPREDNISOLONE 125 MG INJ IV SCH (10:15)
[2020-04-03] MEDS ORDERED: WATER FOR INJ,STERILE 10 ML IM PRN (11:56)
--- NOTE | 2020-04-03 11:58 | P.PN ---
Subjective Date of Service: 04/08/20 Chief Complaint: ARDS from COVID Patient is worse more agitated he is pulling out his oxygen his high-flow nasal cannula had to be taped to he has no was he is very agitated Physical Examination - Vital Signs Temperature: 98.4 F Blood Pressure: 164/121 Pulse: 110 Respirations: 24 Pulse Ox (%): 86 - Studies Medications List Reviewed: Yes Assessment & Plan - Problems (Diagnosis) (1) Acute respiratory distress syndrome (ARDS) due to 2019 novel coronavirus Current Visit: Yes Status: Acute Plan: Respiratory failure from saha virus patient is hypernatremic Dc spironolactone the status starting the patient on PPN is status starting him on D5 water for now prognosis very poor
[2020-04-03] MEDS ORDERED: D5W 1,000 ML IV SCH (12:00)
[2020-04-03] MEDS ORDERED: DEXTROSE 10%-WATER 500 ML IV SCH (15:00)
[2020-04-03] MEDS: AA 4.25%/D10W/ELECTROLYTES 2,000 ML, Lipids 20% 250 ML with MULTIVITAMINS INJ 10 ML IV SCH ×3 (18:27)
[2020-04-03] MEDS: MELATONIN 3 MG TABLET PO SCH (19:16)
[2020-04-03] MEDS: ATORVASTATIN 40 MG TAB PO SCH (19:16)
[2020-04-03] MEDS ORDERED: WATER FOR INJ,STERILE 10 ML ONE (19:59)
[2020-04-03] MEDS: METHYLPREDNISOLONE 40 MG INJ IV SCH (20:11)
[2020-04-03] MEDS: ZIPRASIDONE MESYLA 20 MG/VIAL IM PRN (20:11)
[2020-04-04 08:13] LABS: Absolute Lymphocytes (CBC) 0.6 K/uL (0.7-4.9); Basophils % 1.1 % (0-1.3); Hematocrit 46.8 % (39.6-49.0); Lymphocytes % 2.7 % (15.3-44.8); MPV 9.3 fL (7.6-11.3); RBC Red Blood Cell Count 5.32 M/uL (4.33-5.43)
[2020-04-04 08:31] LABS: C-Reactive Protein 52.8 mg/L (<3.00); Magnesium 2.6 mg/dL (1.8-2.4); Potassium 3.6 mmol/L (3.5-5.1)
[2020-04-04] MEDS: INSULIN GLARGINE 100 UNITS/ML SQ SCH (08:58)
[2020-04-04] MEDS: INSULIN -REGULAR HUMAN 50 UNIT/0.5 ML ML SQ SCH ×4 (08:58→21:21)
[2020-04-04] MEDS: VITAMIN D 1000 UNIT TAB PO SCH (08:59)
[2020-04-04] MEDS: GLUCERNA SHAKE 237 ML CAN PO SCH ×2 (08:59→20:55)
[2020-04-04] MEDS: THIAMINE HCL 100 MG TABLET PO SCH (08:59)
[2020-04-04] MEDS: APIXABAN 5 MG TABLET PO SCH (08:59)
[2020-04-04] MEDS: METHYLPREDNISOLONE 40 MG INJ IV SCH ×2 (09:01→21:02)
[2020-04-04 09:08] LABS: Blood Morphology Comment NOT SEEN (NOT SEEN); Platelet Estimate ADEQ
--- NOTE | 2020-04-04 11:33 | RAD REPORT ---
EXAM DESCRIPTION: CHEST, ONE VIEW XR CLINICAL HISTORY: Picc line placement COMPARISON: None. TECHNIQUE: AP Chest. FINDINGS: Heart is normal in size. Mild aortic atherosclerosis. There is minimal pulmonary vasculari ty congestion. Hazy bilateral lower lobe interstitial and groundglass parenchymal opacities bilateral ly compatible with infiltrates. No pneumothorax. No pleural fluid seen. Right subclavian PICC line is in the right atrium. Unremarkable bony structures. IMPRESSION: 1. Right subclavian PICC line is in the right atrium. No procedural complicating finding . 2. Mild pulmonary vascularity congestion. Bilateral lower lobe infiltrates. Electronically signed by: Dorota Griffith DO 04/04/2020 2:21 AM CDT Due to temporary technical issues with the PACS/Fluency reporting system, reports are being signed by the in house radiologist without review as a courtesy to ensure prompt reporting. The interpreting r adiologist is fully responsible for the content of the report.
--- NOTE | 2020-04-04 12:01 | P.PN ---
Subjective Date of Service: 04/04/20 Chief Complaint: ARDS from COVID Patient continues to remain confused agitated no change still requiring very high concentrations of oxygen Review of Systems is unable to be obtained Physical Examination - Vital Signs Temperature: 98.7 F Blood Pressure: 140/77 Pulse: 115 Respirations: 27 Pulse Ox (%): 97 - Studies Microbiology Data (last 24 hrs): 03/29/20 14:30 Blood - Blood Aerobic Blood Culture - Final No growth in 5 days. 03/29/20 14:30 Blood - Blood Anaerobic Blood Culture - Final No growth in 5 days. 03/29/20 14:45 Blood - Blood Aerobic Blood Culture - Final No growth in 5 days. 03/29/20 14:45 Blood - Blood Anaerobic Blood Culture - Final No growth in 5 days. Medications List Reviewed: Yes Assessment & Plan - Problems (Diagnosis) (1) Acute respiratory distress syndrome (ARDS) due to 2019 novel coronavirus Current Visit: Yes Status: Acute Plan: Patient admitted with respiratory failure for saha virus continue to titrate sat to 85-90% his CRP is declining patient is on Solu-Medrol mildly hypernatremic on TPN replace IV fluids white count is declining blood culture is negative so far consider CT of the head still on high concentrations of oxygen
[2020-04-04] MEDS ORDERED: ENOXAPARIN 40 MG/0.4 ML SQ SCH (13:04)
[2020-04-04] MEDS ORDERED: ENOXAPARIN 40 MG/0.4 ML SQ ONE (13:16)
[2020-04-04] MEDS ORDERED: ACETAMINOPHEN 650MG/RECT SUPP PR PRN (13:28)
[2020-04-04 13:34] LABS: Arterial Blood Carboxyhemoglob 0.7 % (0-1.5); Blood Gas Oxyhemoglobin 75.7 % (94-97); Blood O2 Saturation 76.9 % (92-98.5)
--- NOTE | 2020-04-04 13:35 | P.PN ---
Subjective Date of Service: 04/04/20 Chief Complaint: ARDS from COVID Subjective: Other (Patient requiring high-flow oxygen. Still agitated.) Physical Examination - Vital Signs Temperature: 98.7 F Blood Pressure: 140/77 Pulse: 115 Respirations: 27 Pulse Ox (%): 97 - Physical Exam General: Alert, Confused HEENT: Atraumatic Neck: Supple Respiratory: Clear to auscultation bilaterally, Normal air movement Cardiovascular: Abnormal pulses (Sinus tachycardia) Neurological: Other (Patient agitated. Still confuse. Patient requiring high- flow oxygen.) - Studies Microbiology Data (last 24 hrs): 03/29/20 14:30 Blood - Blood Aerobic Blood Culture - Final No growth in 5 days. 03/29/20 14:30 Blood - Blood Anaerobic Blood Culture - Final No growth in 5 days. 03/29/20 14:45 Blood - Blood Aerobic Blood Culture - Final No growth in 5 days. 03/29/20 14:45 Blood - Blood Anaerobic Blood Culture - Final No growth in 5 days. Medications List Reviewed: Yes Assessment & Plan Discharge Plan: Home Plan to discharge in: Greater than 2 days Physician Review Additional Text: Impression: Acute respiratory failure with hypoxia secondary to bilateral COVID 19 pneumonia Metabolic/toxic encephalopathy with possible steroid induced delirium Diabetes mellitus type 2 Elevated blood pressure Leukocytosis likely related to IV steroids Moderate malnutrition with poor intake with hypernatremia Plan: Acute respiratory failure with hypoxia secondary to bilateral COVID 19 pneumonia: Patient was desaturation on high-flow oxygen. Blood gases obtained. Patient significantly hypoxic. Patient will be placed on BiPAP. Will call supervisor [employer] to get an extra nurse to help and make sure that he keeps BiPAP on. Patient has not been able to get his Eliquis therefore will change to Lovenox. Case discussed in detail with pulmonology. Would like to get CT head and CT angiogram of the chest to further evaluate his confusion and hypoxia. Need to rule out CVA and pulmonary embolism. Will start Lovenox at 1 milligram/kilogram subcu twice daily. Patient remains on IV steroids. Need to limit sedation medication. Extra nurse should help to make sure patient keeps BiPAP on. Will recheck blood gases within 30 min to 1 hr after on BiPAP. Will continue monitor closely. Case discussed in detail with son. Advanced care planning address in detail. Patient remains full code at this time. If patient requires intubation in the near future. Son wants to proceed. Will continue to monitor closely. 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 Medication for agitation provided but will try to limit this as best possible. Encephalopathy may be related to hypoxia. Patient now on BiPAP. Diabetes mellitus type 2: Continue monitoring. Continue sliding scale as required. Will adjust basal insulin. Elevated blood pressure: Likely from agitation. Will monitor closely. If this continues then will consider medication for hypertension. Leukocytosis likely related to IV steroids: This has improved. Continue to monitor closely. Moderate malnutrition with poor intake with hypernatremia: PICC line ordered. TPN initiated. Time Spent Managing Pts Care (In Minutes): 55
[2020-04-04 13:44] LABS: Arterial Blood Carboxyhemoglob 0.6 % (0-1.5); Blood Gas Oxyhemoglobin 87.3 % (94-97); Blood O2 Saturation 88.7 % (92-98.5)
[2020-04-04] MEDS ORDERED: ENOXAPARIN 60 MG/0.6 ML SQ SCH (14:00)
[2020-04-04] MEDS ORDERED: MORPHINE 2 MG/ML SYR ONE ×2 (14:11→14:33)
--- NOTE | 2020-04-04 14:58 | RAD REPORT ---
EXAM DESCRIPTION: RAD - Chest Single View - 04/04/2020 2:44 pm CLINICAL HISTORY: SOB COMPARISON: April 04, April 01 TECHNIQUE: AP portable chest image was obtained 04/04/2020 2:44 pm . FINDINGS: Interstitial and alveolar opacification is present throughout both lung hanley. Lung volum es are improved from the examination earlier in the day. PICC line has been retracted to the mid SVC level. When adjusting for the inspiratory technique differences, no substantial change is observed. T rachea is midline. Heart and vasculature are normal. No measurable pleural effusion and no pneumothor ax. No acute bony abnormality seen. No acute aortic findings suspected. IMPRESSION: Bilateral interstitial and alveolar opacification not substantially different from the e xamination earlier in the day. PICC line has been retracted to the mid SVC level.
[2020-04-04 16:30] LABS: Arterial Blood Carboxyhemoglob 0.6 % (0-1.5); Blood O2 Saturation 89.5 % (92-98.5)
[2020-04-04] MEDS: AA 4.25%/D10W/ELECTROLYTES 2,000 ML, Lipids 20% 250 ML with MULTIVITAMINS INJ 10 ML IV SCH ×3 (17:03)
[2020-04-04] MEDS: LORazepam 2 MG/ML VIAL IV PRN (19:30)
[2020-04-04] MEDS: ATORVASTATIN 40 MG TAB PO SCH (20:53)
[2020-04-04] MEDS: MELATONIN 3 MG TABLET PO SCH (20:54)
[2020-04-04] MEDS ORDERED: ENOXAPARIN 100 MG/ML SYR SQ SCH (21:00)
[2020-04-04] MEDS: ENOXAPARIN 60 MG/0.6 ML SQ SCH (21:03)
[2020-04-04] MEDS: ZIPRASIDONE MESYLA 20 MG/VIAL IM PRN (23:11)
[2020-04-05 05:08] LABS: Absolute Lymphocytes (CBC) 0.5 K/uL (0.7-4.9); Basophils % 0.3 % (0-1.3); Hematocrit 46.9 % (39.6-49.0); Lymphocytes % 2.7 % (15.3-44.8); MPV 9.7 fL (7.6-11.3)
[2020-04-05] MEDS: LORazepam 2 MG/ML VIAL IV PRN (05:25)
[2020-04-05 05:26] LABS: C-Reactive Protein 66.1 mg/L (<3.00); Magnesium 2.7 mg/dL (1.8-2.4); Potassium 3.9 mmol/L (3.5-5.1)
[2020-04-05 06:38] LABS: Arterial Blood Carboxyhemoglob 0.6 % (0-1.5); Blood Gas Oxyhemoglobin 87.6 % (94-97); Blood O2 Saturation 89.1 % (92-98.5)
[2020-04-05] MEDS: MORPHINE 2 MG/ML SYR IV PRN ×2 (06:48→20:46)
--- NOTE | 2020-04-05 07:10 | RAD REPORT ---
EXAM DESCRIPTION: RAD - Chest Single View - 04/05/2020 6:33 am CLINICAL HISTORY: follow up acute resp. failure COMPARISON: April 04 TECHNIQUE: AP portable chest image was obtained 04/05/2020 6:33 am . FINDINGS: Bilateral lung parenchymal opacification is still present. Patient shows slight improvemen t in the left base. Findings are otherwise stable. No change in positioning of the PICC line. Heart a nd vasculature are normal. No measurable pleural effusion and no pneumothorax. No acute bony abnormal ity seen. No acute aortic findings suspected. IMPRESSION: Bilateral lung parenchymal opacification. Left base is slightly improved.
[2020-04-05] MEDS: METHYLPREDNISOLONE 40 MG INJ IV SCH ×2 (07:44→20:05)
[2020-04-05] MEDS: THIAMINE 200 MG/2 ML INJ IVP SCH (07:44)
[2020-04-05] MEDS: INSULIN -REGULAR HUMAN 50 UNIT/0.5 ML ML SQ SCH ×4 (07:45→23:59)
[2020-04-05] MEDS: GLUCERNA SHAKE 237 ML CAN PO SCH ×2 (07:46→20:03)
[2020-04-05] MEDS: ENOXAPARIN 60 MG/0.6 ML SQ SCH (07:46)
[2020-04-05] MEDS: VITAMIN D 1000 UNIT TAB PO SCH (07:47)
[2020-04-05] MEDS ORDERED: INSULIN GLARGINE 100 UNITS/ML SQ SCH ×2 (08:00)
--- NOTE | 2020-04-05 08:07 | P.PN ---
Subjective Date of Service: 04/05/20 Chief Complaint: ARDS from COVID Subjective: Other (Patient remains on BIPAP. He is requiring restraints to keep him from removing mask. He did require some sedation medication.) Physical Examination - Vital Signs Temperature: 98.4 F Blood Pressure: 115/86 Pulse: 122 Respirations: 30 Pulse Ox (%): 87 - Physical Exam General: Other (Patient still confused. Patient was given sedation medication earlier.) Neck: Supple Respiratory: Other (Lungs clear but slightly decreased bilateral) Cardiovascular: Abnormal pulses (Sinus tachycardia) Gastrointestinal: Normal bowel sounds, No tenderness, No masses, No rebound, No guarding Musculoskeletal: No erythema, No tenderness, No warmth Neurological: Other (Patient able to move all 4s. Upper extremity restraints in place) - Studies Medications List Reviewed: Yes Assessment & Plan Discharge Plan: Home Plan to discharge in: 72 Hours Physician Review Additional Text: Impression: Acute respiratory failure with hypoxia secondary to bilateral COVID 19 pneumonia Metabolic/toxic encephalopathy with possible steroid induced delirium Diabetes mellitus type 2 Elevated blood pressure Leukocytosis likely related to IV steroids Moderate malnutrition with poor intake with hypernatremia Plan: Acute respiratory failure with hypoxia secondary to bilateral COVID 19 pneumonia: Patient remains on BiPAP. Continue to adjust FiO2. Patient also requiring restraints to keep patient from removing mask. Patient did receive some medication for sedation. CRP slightly elevated. Will increase IV steroids to 60 mg twice daily IV. Acute renal injury also noted. Will consult nephrology for further recommendation. Patient may require additional IV fluids. This may be complicated due to his COVID status. Patient had received some diuretic therapy initially but this was discontinued 2 days ago. Patient getting PPN. Will need to adjust basal insulin and sliding scale. Will discuss further with pulmonology on plan of care. Will need to consider Remdesivir or convalescent plasma. Will discuss with pulmonology. Awaiting to get CT head and CT angiogram of chest to further evaluate his condition but patient still on stable to receive this. Patient on Lovenox at 1 milligram/kilogram subcu twice daily. Will continue to monitor closely. Case discussed with son. Plan of care address with patient's son. Son wants to continue with full measures. Patient remains full code. Metabolic/toxic encephalopathy with possible steroid induced delirium: CRP was slightly increase. Will increase IV steroid. Will discuss with pulmonology. Continue with above recommendation.. Diabetes mellitus type 2: Continue monitoring. Continue sliding scale as required. Will continue to adjust basal insulin. Elevated blood pressure: Likely from agitation. Will monitor closely. If this continues then will consider medication for hypertension. Leukocytosis likely related to IV steroids: This has improved. Continue to monitor closely. Moderate malnutrition with poor intake with hypernatremia: Patient on PPN. Time Spent Managing Pts Care (In Minutes): 55
[2020-04-05] MEDS ORDERED: NA CHLORIDE 0.9% 250 ML IV ONE (11:40)
[2020-04-05 14:37] LABS: Urine Appearance CLEAR; Urine Blood TRACE (NEG); Urine Color DK YELLOW; Urine Glucose 3+ (NEG); Urine Protein 2+ (NEG); Urine Specific Gravity >=1.030 (1.005-1.030); Urine Urobilinogen 0.2 mg/dL (0.2-1.0); Urine pH 5.5 (5.0-7.0)
[2020-04-05 14:41] LABS: Urine Protein/Creatinine Ratio 0.58 ratio (<0.15)
[2020-04-05 14:58] LABS: Urine Bilirubin 1+ (NEG); Urine Microscopic Reflex ORDER UMIC
[2020-04-05 15:07] LABS: Arterial Blood Carboxyhemoglob 0.6 % (0-1.5); Blood Gas Oxyhemoglobin 89.4 % (94-97); Blood O2 Saturation 90.9 % (92-98.5)
[2020-04-05 15:18] LABS: Urine Bacteria <20 /HPF (NONE SEEN); Urine Culture Reflex Order NOT NEEDED; Urine Mucus 2+ /HPF (NONE SEEN)
[2020-04-05] MEDS ORDERED: DEXTROSE 10%-WATER 500 ML IV SCH (16:00)
[2020-04-05] MEDS ORDERED: AA 4.25%/D10W/ELECTROLYTES 2,000 ML, Lipids 20% 250 ML with MULTIVITAMINS INJ 10 ML IV SCH ×3 (17:00)
[2020-04-05] MEDS: ATORVASTATIN 40 MG TAB PO SCH (20:04)
[2020-04-05] MEDS: MELATONIN 3 MG TABLET PO SCH (20:04)
--- NOTE | 2020-04-05 23:52 | RAD REPORT ---
EXAM DESCRIPTION: US - Renal Ultrasound-Complete - 04/05/2020 11:02 pm CLINICAL HISTORY: EVA Flank pain COMPARISON: No comparisons FINDINGS: Both kidneys are normal in size, shape and echotexture. The right kidney measures 10.4 x 4.7 x 4.5 cm. No hydronephrosis, focal mass or perinephric fluid. The left kidney measures 9.9 x 5.3 x 5.0 cm. No hydronephrosis, focal mass or perinephric fluid. The urinary bladder is incompletely distended without gross abnormality seen. IMPRESSION: Unremarkable renal sonogram.
--- NOTE | 2020-04-05 23:58 | CON ---
Date of Consultation: 04/05/2020 Reason For Consultation: Elevated BUN and creatinine, fluid management. History Of Present Illness: This is a pleasant 84-year-old gentleman. All the information has been obtained from the record. The patient was admitted to the hospital back on the 29 of March with shortness of breath, headache, found to have COVID pneumonia. The patient had past medical history of diabetes, hypertension, hyperlipidemia. The patient during the hospitalization been diuresed. His respiratory symptoms have been worsening. The patient couple of days ago has acidosis, was treated with bicarb, recovered. Over the night, the patient had low blood pressure. The patient's creatinine started rising. For that reason, we have been consulted. There is no IV contrast during the hospitalization. There is no rash. The patient is receiving repeatedly Lasix for diuresis. Allergies: NO KNOWN DRUGS ALLERGY. Past Medical History: Include: 1. Diabetes. 2. Hypertension. 3. Hyperlipidemia. Home Medications: Include Jardiance, metformin, Januvia, Pepcid, ferrous sulfate, Levaquin, and tramadol. Past Surgical History: Include left hand surgery. Social History: Denies smoking. Denies drinking. Denies drug abuse. Family History: None obtainable. Review of Systems: None obtainable. Physical Examination: Vital Signs: When I saw the patient, the patient was lying in bed, on BiPAP, blood pressure 121/68, pulse of 88. CHEST: Crackles bilateral. HEART: S1, S2. Tachycardic. Abdomen: Soft. Dullness on the suprapubic area. Extremities: No edema. NEURO: The patient received Ativan. Moving 4 extremities without any focality. Laboratory Data: WBC 19, H and H 15.7/46.9. Sodium 149, potassium 3.9, bicarb 21, BUN 61, creatinine 1.6, sugar 404, calcium 9.8, magnesium 2.6. C-reactive protein 66. ABG; pH 7.46, CO2 30; O2 61; saturation 89. Urinalysis; specific gravity of 1.030, wbc's less than 5. PC ratio 0.5. On the peripheral smear, no eosinophilia. Assessment And Plan: 1. Acute kidney injury secondary to poor perfusion, acute tubular necrosis, to rule out obstructive uropathy given the dullness on the suprapubic area. I am going to go ahead and place a Doll. We will get renal ultrasound. In the differential also acute interstitial nephritis/COVID nephropathy. We will send for urine eosinophil. We will send for CK and uric acid. We will give the patient 250 of normal saline, then maintain him on 50 per hour with a total of 500 and we will follow up the patient closely. 2. Hypertension, currently hypotension. Start the patient on hydration. Hold the diuresis for the time being. 3. COVID pneumonia with respiratory failure. We will follow up with the primary and Pulmonary. Continue current treatment. 4. Acidosis, high anion gap, resolved. 5. Hyperglycemia, as by primary. Time spent coordinating the care, discuss him with all of our team members including othere fundraising consultant and hospitalist and [id number] with the patient and please go out of 35 min ABISAI Voice ID: [id number] Report ID: [id number]
--- NOTE | 2020-04-06 00:30 | RAD REPORT ---
EXAM DESCRIPTION: RAD - Chest Single View - 04/05/2020 10:56 pm CLINICAL HISTORY: subcutaneous emphysema to L neck chest area Chest pain. COMPARISON: Chest Single View dated 04/05/2020; Chest Single View dated 04/04/2020; Chest Single View dated 04/04/2020; Chest Single View dated 04/01/2020 FINDINGS: Portable technique limits examination quality. Mild bilateral interstitial lung opacities are again noted, without significant change. Right-sided P ICC line has its tip in the SVC. There is significant left-sided subcutaneous emphysema along the bas e of the neck on the left. Mild pneumomediastinum may also be present related to this. No pneumothora x is seen. Recommend CT chest followup assessment. ICU was notified.
[2020-04-06 04:58] LABS: Absolute Lymphocytes (CBC) 0.6 K/uL (0.7-4.9); Basophils % 0.3 % (0-1.3); Hematocrit 47.7 % (39.6-49.0); Lymphocytes % 2.1 % (15.3-44.8); MPV 10.8 fL (7.6-11.3); RBC Red Blood Cell Count 5.36 M/uL (4.33-5.43)
[2020-04-06 05:37] LABS: Ferritin 680.5 ng/mL (26-388); Potassium 4.3 mmol/L (3.5-5.1)
[2020-04-06] MEDS: INSULIN -REGULAR HUMAN 50 UNIT/0.5 ML ML SQ SCH ×4 (05:52→23:54)
[2020-04-06] MEDS: MORPHINE 2 MG/ML SYR IV PRN ×4 (06:15→22:52)
[2020-04-06] MEDS: GLUCERNA SHAKE 237 ML CAN PO SCH ×2 (07:32→20:32)
[2020-04-06] MEDS ORDERED: D5W 1,000 ML IV SCH (08:00)
[2020-04-06] MEDS: ENOXAPARIN 60 MG/0.6 ML SQ SCH (08:06)
[2020-04-06] MEDS: INSULIN GLARGINE 100 UNITS/ML SQ SCH (08:06)
[2020-04-06] MEDS: METHYLPREDNISOLONE 125 MG INJ IV SCH ×2 (08:07→20:40)
[2020-04-06] MEDS: THIAMINE 200 MG/2 ML INJ IVP SCH (08:08)
[2020-04-06] MEDS: VITAMIN D 1000 UNIT TAB PO SCH (08:16)
--- NOTE | 2020-04-06 10:33 | P.PN ---
Subjective Date of Service: 04/06/20 Chief Complaint: ARDS from COVID Subjective pt admitted with resp failure due to COVID , nephrology consulted for EVA and hypernatremia Today no change in clinical status will cont D5W for now , will start Sodium free TPN Physical exam general: confused, on BiPAP Neck; Supple, No elevated JVD hear: RRR, normal S1,2 no murmur or rub Chest: decreased air entry B/l no rales or wheezes Abdomen: Soft , Nt Extremities No edema or ulcer Assessment And Plan: VEA due to COVID 19 and dehydration Cr improving Cont IVF elevated BUn likely due to steroids Hypernatremia Cont D5W and TPN free sodium strict BS control DM on insulin failure to thrive cont TPN COVID 19 as per primary team Rhabdomyolysis cont IVF Acute resp failure due to COVID pneumonia on BiPAP Physical Examination - Vital Signs Temperature: 98.2 F Blood Pressure: 186/98 Pulse: 120 Respirations: 26 Pulse Ox (%): 91 - Studies Medications List Reviewed: Yes
[2020-04-06] MEDS: AMINO ACIDS 10% IV SCH ×5 (11:10)
[2020-04-06] MEDS: DEXTROSE 50% IV SCH ×5 (11:10)
[2020-04-06] MEDS: LIPIDS IV SCH ×5 (11:10)
[2020-04-06] MEDS: [UNRECOGNIZED DRUG - OTHER] IV SCH ×5 (11:10)
[2020-04-06] MEDS: WATER IV SCH ×5 (11:10)
--- NOTE | 2020-04-06 11:16 | P.PN ---
Subjective Date of Service: 04/07/20 Chief Complaint: ARDS from COVID No change patient is unresponsive very agitated still requiring high concentrations of oxygen still very hypernatremic Review of Systems is unable to be obtained Physical Examination - Vital Signs Temperature: 98.2 F (Deferred) Blood Pressure: 186/98 Pulse: 120 Respirations: 26 Pulse Ox (%): 91 - Studies Medications List Reviewed: Yes Assessment & Plan - Problems (Diagnosis) (1) Acute respiratory distress syndrome (ARDS) due to 2019 novel coronavirus Current Visit: Yes Status: Acute Plan: Patient has ARDS from coronal virus continue with present treatment for hypernatremia agree with increasing IV fluids he is on TPN cultures are so far negative renal function is improving CPK elevated is still on a high dose of IV steroids patient's white count is also increased the check the chemistries season D5 water at 50 cc an hr prognosis is very poor not stable to have a CT scan of the head blood pressure is little elevated he is on IV morphine p.r.n. stable for transfer to an LTAC facility he may have had underlying stroke however is hypernatremia niece to be corrected on urgent basis tsh level has also been ordered (2) Subcutaneous emphysema Current Visit: Yes Status: Acute Plan: Patient has subcutaneous emphysema I suspect is from the saha virus infection continue to monitor no evidence of pneumothorax
--- NOTE | 2020-04-06 11:39 | P.PN ---
Subjective Date of Service: 04/06/20 Chief Complaint: ARDS from COVID Subjective: Other (Patient stable on BiPAP. No significant change since yesterday.) Physical Examination - Vital Signs Temperature: 98.2 F (Deferred) Blood Pressure: 186/98 Pulse: 120 Respirations: 26 Pulse Ox (%): 91 - Physical Exam General: Alert, Other (Still confused. Moving all 4s.) HEENT: Atraumatic Respiratory: Other (Patient currently on BiPAP at 70% Fi02 with oxygen saturations above 90%.) Cardiovascular: Abnormal pulses (Sinus tachycardia noted on telemetry) Neurological: Other (Confused) - Studies Medications List Reviewed: Yes Assessment & Plan Discharge Plan: LTAC Plan to discharge in: 24 Hours Physician Review Additional Text: Impression: Acute respiratory failure with hypoxia secondary to bilateral COVID 19 pneumonia now with subcu emphysema Metabolic/toxic encephalopathy with possible steroid induced delirium Diabetes mellitus type 2 insulin-dependent with hyperglycemia Acute renal failure with rhabdomyolysis and hypernatremia Elevated blood pressure likely from agitation Leukocytosis likely related to IV steroids Moderate malnutrition with poor intake with hypernatremia Plan: Acute respiratory failure with hypoxia secondary to bilateral COVID 19 pneumonia now with subcu emphysema: Patient remains on BiPAP at 70% Fi02. Continue to maintain oxygen saturations above 90%. Will continue to try to wean off. CRP still elevated. Will increase IV [id number] to 80 mg twice daily. Will continue to try to wean off oxygen. Case discussed with pulmonology. Pulmonology agrees with transfer to long-term acute care facility. Family also in agreement. Patient on DVT prophylaxis-Lovenox. Nephrology continues to adjust PPN and IV fluids. Now on D5W due to hypernatremia. Will need to monitor electrolytes closely. Still not able to do CT head or chest due to his confusion and instability. Once stable will recommend CT head and chest to further evaluate. Patient also noted with rhabdomyolysis. Continue IV fluids per Nephrology. Continue to adjust basal insulin. At this time await approval for long-term acute care facility. Patient still has poor prognosis. Will discuss with family in detail. Patient remains full code. I will turn the service over to the hospitalist team tomorrow. I will go over plan of care with him. Metabolic/toxic encephalopathy with possible steroid induced delirium: CRP was slightly increased. Will increase IV steroid at this time. Will provide medication for agitation. Patient responding well to some morphine. Still would like to do a CT head to rule out possible CVA. Patient able to move all 4s. Encephalopathy may also be related to hypernatremic. Electrolytes being adjusted by Nephrology. Continue to monitor closely. Patient may require restraints to keep him from pulling BiPAP. Acute renal failure with rhabdomyolysis and hypernatremia: Nephrology continues to adjust TPN and IV fluids. Renal function has improved. Continue monitor closely. Continue with Nephrology recommendations. Elevated blood pressure likely from agitation: Continue monitor closely. Blood pressure improved with IV morphine. No need for blood pressure medication at this time but will monitor closely. Diabetes mellitus type 2 insulin-dependent with hyperglycemia: Continue monitoring. Continue sliding scale as required. Will continue to adjust basal insulin. Leukocytosis likely related to IV steroids: Overall stable. IV steroids to be increased due to his respiratory condition. Will continue to monitor closely. Moderate malnutrition with poor intake with hypernatremia: Patient on PPN. Nephrology continues to adjust medication. Time Spent Managing Pts Care (In Minutes): 55
[2020-04-06 17:21] LABS: Albumin 2.4 g/dL (3.4-5.0); Magnesium 2.8 mg/dL (1.8-2.4); Phosphorus 2.5 mg/dL (2.5-4.9); Potassium 3.5 mmol/L (3.5-5.1)
[2020-04-06] MEDS: D5W 1,000 ML IV SCH ×2 (20:00→23:59)
[2020-04-06] MEDS: MELATONIN 3 MG TABLET PO SCH (20:32)
[2020-04-06] MEDS: ATORVASTATIN 40 MG TAB PO SCH (20:32)
[2020-04-07] MEDS: MORPHINE 2 MG/ML SYR IV PRN ×3 (04:15→23:00)
[2020-04-07] MEDS: INSULIN -REGULAR HUMAN 50 UNIT/0.5 ML ML SQ SCH ×4 (06:09→23:35)
[2020-04-07 06:14] LABS: Absolute Lymphocytes (CBC) 0.4 K/uL (0.7-4.9); Basophils % 0.4 % (0-1.3); Hematocrit 46.9 % (39.6-49.0); Lymphocytes % 1.4 % (15.3-44.8); MPV 10.2 fL (7.6-11.3); RBC Red Blood Cell Count 5.25 M/uL (4.33-5.43)
[2020-04-07 06:48] LABS: C-Reactive Protein 49.5 mg/L (<3.00); Magnesium 2.7 mg/dL (1.8-2.4); Potassium 3.6 mmol/L (3.5-5.1); Thyroid Stimulating Hormone 0.769 uIU/mL (0.360-3.740)
[2020-04-07] MEDS: GLUCERNA SHAKE 237 ML CAN PO SCH ×2 (07:34→20:26)
[2020-04-07] MEDS: VITAMIN D 1000 UNIT TAB PO SCH (07:35)
[2020-04-07] MEDS: THIAMINE 200 MG/2 ML INJ IVP SCH (08:38)
[2020-04-07] MEDS: METHYLPREDNISOLONE 125 MG INJ IV SCH ×2 (08:38→20:26)
[2020-04-07] MEDS: INSULIN GLARGINE 100 UNITS/ML SQ SCH (08:39)
[2020-04-07] MEDS: ENOXAPARIN 60 MG/0.6 ML SQ SCH (08:40)
[2020-04-07] MEDS: LORazepam 2 MG/ML VIAL IV PRN ×2 (09:15→20:51)
[2020-04-07 09:22] LABS: Platelet Estimate DECR
[2020-04-07 09:23] LABS: Blood Morphology Comment NOT SEEN (NOT SEEN)
[2020-04-07] MEDS: DEXTROSE 50% IV SCH ×5 (10:03)
[2020-04-07] MEDS: [UNRECOGNIZED DRUG - OTHER] IV SCH ×5 (10:03)
[2020-04-07] MEDS: WATER IV SCH ×5 (10:03)
[2020-04-07] MEDS: AMINO ACIDS 10% IV SCH ×5 (10:03)
[2020-04-07] MEDS: LIPIDS IV SCH ×5 (10:03)
--- NOTE | 2020-04-07 10:16 | RAD REPORT ---
EXAM DESCRIPTION: William[facility] Single View04/07/2020 9:43 am CLINICAL HISTORY: Shortness of breath COMPARISON: April 05, 2020 FINDINGS: Progression in extensive bilateral subcutaneous emphysema. Pneumomediastinum. A pneumothorax is not visualized. Mild bilateral pulmonary opacities The heart is normal size. PICC line in place IMPRESSION: Progression extensive bilateral subcutaneous emphysema
--- NOTE | 2020-04-07 10:17 | P.PN ---
Subjective Date of Service: 04/07/20 (Hospitalist) Chief Complaint: ARDS from COVID and subcutaneous emphysema Patient's conditions no changes still agitated confused hypernatremic significant subcutaneous emphysema patient's CRP is now less than 50 Review of Systems is unable to be obtained Physical Examination - Vital Signs Temperature: 98.2 F (Deferred) Blood Pressure: 186/98 Pulse: 120 Respirations: 26 Pulse Ox (%): 91 - Physical Exam General: Unresponsive Respiratory: Other (Significant bilateral subcutaneous thoracic emphysema) Cardiovascular: No edema, Normal S1 S2 - Studies Medications List Reviewed: Yes Assessment & Plan - Problems (Diagnosis) (1) Acute respiratory distress syndrome (ARDS) due to 2019 novel coronavirus Current Visit: Yes Status: Acute Plan: Admitted with ARDS is prognosis is very poor continue with BiPAP at discuss with the son Adams he agrees to do not resuscitate no intubation or cardioversion continue with present therapy prognosis is very poor (2) Subcutaneous emphysema Current Visit: Yes Status: Acute Plan: Significant subcutaneous emphysema no evidence of pneumothorax (3) Hypernatremia Current Visit: Yes Status: Acute Plan: Increase IV fluid rate to 100 cc an hr continue to monitor (4) Hypertension Current Visit: Yes Status: Acute Plan: I have added a clonidine patch and IV hydralazine p.r.n. (5) Leukocytosis Current Visit: Yes Status: Acute Plan: Patient's white count is not significantly elevated may be due to steroids for possible sepsis was start on broad-spectrum antibiotics possible sepsis of started him on cefepime and vancomycin
[2020-04-07] MEDS ORDERED: Pharmacy Consult 1 EA XX PRN (10:20)
[2020-04-07] MEDS ORDERED: CEFEPIME 1 GM/VIAL IV SCH ×2 (11:00→21:00)
[2020-04-07] MEDS ORDERED: CLONIDINE 0.1 MG/PATCH TD SCH (11:00)
[2020-04-07] MEDS ORDERED: VANCOMYCIN 1.5 GM in NA CHLORIDE 0.9% 500 ML IVPB ONE (11:00)
[2020-04-07] MEDS: CEFEPIME 1 GM in WATER FOR INJ,STERILE 10 ML IVP ONE ×2 (11:00)
[2020-04-07] MEDS: D5W 1,000 ML IV SCH ×2 (11:11→22:06)
[2020-04-07] MEDS: CEFEPIME/SWI 1gm 10 ML IVP SCH (11:43)
[2020-04-07] MEDS ORDERED: CEFEPIME 1 GM in NA CHLORIDE 0.9% 100 ML IV SCH (12:00)
[2020-04-07] MEDS: HYDRALAZINE HCL 20 MG/ML VIAL IV PRN (13:48)
[2020-04-07] MEDS ORDERED: METOPROLOL TARTRATE 5 MG/5 ML INJ IV STA (14:00)
[2020-04-07] MEDS ORDERED: AMIODARONE HCL 150 MG in D5W 100 ML IV STA (14:01)
[2020-04-07] MEDS ORDERED: METOPROLOL TARTRATE 5 MG/5 ML INJ IV ONE (14:13)
[2020-04-07] MEDS ORDERED: AMIODARONE HCL 450 MG in D5W 241 ML IV SCH (15:00)
--- NOTE | 2020-04-07 15:09 | P.PN ---
Subjective Date of Service: 04/07/20 Chief Complaint: ARDS from COVID and subcutaneous emphysema Subjective pt admitted with resp failure due to COVID , nephrology consulted for EVA and hypernatremia Today had afib with RVR today Sodium trending up , agree with increasing D5W rate cont TPN family to decide about GOC Physical exam general: confused, on BiPAP Neck; Supple, No elevated JVD hear: RRR, normal S1,2 no murmur or rub Chest: diminished air entry B/l Abdomen: Soft , Nt Extremities No edema or ulcer Assessment And Plan: EVA due to COVID 19 and dehydration Cr improving Cont IVF elevated BUn likely due to steroids Hypernatremia Cont D5W and TPN free sodium strict BS control DM on insulin failure to thrive cont TPN COVID 19 as per primary team Rhabdomyolysis cont IVF Acute resp failure due to COVID pneumonia on BiPAP poor Prognosis Physical Examination - Vital Signs Temperature: 98.2 F Blood Pressure: 199/91 Pulse: 177 Respirations: 20 Pulse Ox (%): 90 - Studies Medications List Reviewed: Yes
[2020-04-07 16:54] LABS: Potassium 3.5 mmol/L (3.5-5.1)
[2020-04-07] MEDS: ATORVASTATIN 40 MG TAB PO SCH (20:27)
[2020-04-07] MEDS: MELATONIN 3 MG TABLET PO SCH (20:27)
[2020-04-07] MEDS ORDERED: INSULIN GLARGINE 100 UNITS/ML SQ SCH (21:00)
[2020-04-08] MEDS: HYDRALAZINE HCL 20 MG/ML VIAL IV PRN ×3 (01:31→23:09)
[2020-04-08] MEDS: LORazepam 2 MG/ML VIAL IV PRN (03:05)
[2020-04-08] MEDS: INSULIN -REGULAR HUMAN 50 UNIT/0.5 ML ML SQ SCH ×2 (06:00→12:44)
[2020-04-08] MEDS: D5W 1,000 ML IV SCH (06:14)
[2020-04-08 06:38] LABS: Potassium 3.8 mmol/L (3.5-5.1)
[2020-04-08] MEDS ORDERED: INSULIN -REGULAR HUMAN 50 UNIT/0.5 ML ML IV ONE (07:21)
[2020-04-08] MEDS ORDERED: FLUCONAZOLE 400 MG IVPB 400 MG/200 ML BAG IV SCH (07:30)
[2020-04-08] MEDS ORDERED: FLUCONAZOLE 400 MG IVPB 400 MG/200 ML BAG IV ONE (07:45)
[2020-04-08] MEDS ORDERED: INSULIN GLARGINE 100 UNITS/ML SQ SCH (09:00)
[2020-04-08] MEDS ORDERED: CEFEPIME 1 GM in NA CHLORIDE 0.9% 100 ML IV SCH ×4 (09:00)
[2020-04-08] MEDS: VITAMIN D 1000 UNIT TAB PO SCH (09:00)
[2020-04-08] MEDS: GLUCERNA SHAKE 237 ML CAN PO SCH ×2 (09:00→20:40)
--- NOTE | 2020-04-08 09:01 | P.PN ---
Subjective Date of Service: 04/08/20 Chief Complaint: ARDS from COVID and subcutaneous emphysema Patient's conditions no changes still agitated confused hypernatremic significant subcutaneous emphysema patient's CRP is now less than 50 Physical Examination - Vital Signs Temperature: 98.4 F Blood Pressure: 160/86 Pulse: 119 Respirations: 30 Pulse Ox (%): 90 - Studies Medications List Reviewed: Yes Assessment & Plan - Problems (Diagnosis) (1) Acute respiratory distress syndrome (ARDS) due to 2019 novel coronavirus Current Visit: Yes Status: Acute Plan: Admitted with ARDS is prognosis is very poor continue with BiPAP at discuss with the son Adams he agrees to do not resuscitate no intubation or cardioversion continue with present therapy prognosis is very poor (2) Subcutaneous emphysema Current Visit: Yes Status: Acute Plan: Significant subcutaneous emphysema no evidence of pneumothorax (3) Hypernatremia Current Visit: Yes Status: Acute Plan: Increase IV fluid rate to 100 cc an hr continue to monitor (4) Hypertension Current Visit: Yes Status: Acute Plan: I have added a clonidine patch and IV hydralazine p.r.n. (5) Leukocytosis Current Visit: Yes Status: Acute Plan: Patient's white count is not significantly elevated may be due to steroids for possible sepsis was start on broad-spectrum antibiotics possible sepsis of started him on cefepime and vancomycin
--- NOTE | 2020-04-08 09:05 | P.PN ---
Subjective Date of Service: 04/08/20 Chief Complaint: ARDS from COVID and subcutaneous emphysema No change patient is still agitated unresponsive high concentrations of oxygen subcutaneous emphysema as worsening DNR was reverse yesterday Review of Systems is unable to be obtained Physical Examination - Vital Signs Temperature: 98.4 F Blood Pressure: 160/86 Pulse: 119 Respirations: 30 Pulse Ox (%): 90 - Physical Exam General: Delirious, Unresponsive Respiratory: Other (Pretty significant subcutaneous emphysema extending into his neck chest abdomen and scrotal area) Cardiovascular: No edema, Normal S1 S2 - Studies Medications List Reviewed: Yes Assessment & Plan - Problems (Diagnosis) (1) Acute respiratory distress syndrome (ARDS) due to 2019 novel coronavirus Current Visit: Yes Status: Acute Plan: ARDS 2 to saha virus the will try convalescent plasma and redesmir I have discussed with the patient's son Adams villa informed in that wrist does smear is an investigational drug limited information is known about the safety and effectiveness to treat patient's with saha virus infection the unknown medications of approved by the FDA is safe and effective to treat patient's in the hospital who of saha virus disease discuss with the patient possible side effect include allergic reactions abnormal liver function test will be monitored and the son agrees (2) Subcutaneous emphysema Current Visit: Yes Status: Acute Plan: Significant subcutaneous emphysema no evidence of pneumothorax (3) Hypernatremia Current Visit: Yes Status: Acute Plan: Dc IV fluids hypernatremia is now resolved (4) Hypertension Current Visit: Yes Status: Acute Plan: I controlled (5) Leukocytosis Current Visit: Yes Status: Acute Plan: Leukocytosis is worse I have added Diflucan (6) Hyperglycemia Current Visit: Yes Status: Acute Plan: Severe IV increase the dose of Lantus Dc D5 water they need an insulin drip
[2020-04-08] MEDS: CEFEPIME/SWI 1gm 10 ML IVP SCH (09:24)
[2020-04-08] MEDS: THIAMINE 200 MG/2 ML INJ IVP SCH (09:24)
[2020-04-08] MEDS: [UNRECOGNIZED DRUG - OTHER] IV SCH ×5 (09:25)
[2020-04-08] MEDS: METHYLPREDNISOLONE 125 MG INJ IV SCH ×2 (09:25→20:39)
[2020-04-08] MEDS: LIPIDS IV SCH ×5 (09:25)
[2020-04-08] MEDS: DEXTROSE 50% IV SCH ×5 (09:25)
[2020-04-08] MEDS: WATER IV SCH ×5 (09:25)
[2020-04-08] MEDS: AMINO ACIDS 10% IV SCH ×5 (09:25)
[2020-04-08] MEDS: ENOXAPARIN 60 MG/0.6 ML SQ SCH (09:25)
[2020-04-08] MEDS: FLUCONAZOLE 200mg IVPB 200 MG/100 ML BAG IV SCH (10:25)
[2020-04-08] MEDS ORDERED: GLUCAGON 1 MG/VIAL IM PRN (12:47)
[2020-04-08] MEDS ORDERED: D50W 25 GM/50 ML SYRINGE/VIAL IV PRN (12:47)
[2020-04-08] MEDS ORDERED: INSULIN -REGULAR HUMAN 50 UNIT/0.5 ML ML IV SCH (13:00)
--- NOTE | 2020-04-08 13:39 | P.PN ---
Subjective Date of Service: 04/08/20 Chief Complaint: ARDS from COVID Subjective pt admitted with resp failure due to COVID , nephrology consulted for EVA and hypernatremia pt course complicated with subcutaneous emphysema Today cont TPN family to decide about GOC plan to start on insulin drip Physical exam general: confused, on BiPAP Neck; Supple, No elevated JVD hear: RRR, normal S1,2 no murmur or rub Chest: diminished air entry B/l Abdomen: Soft , Nt Extremities No edema or ulcer , lt toes with bulish discolration, gangrane, crackeles over Lt arm Assessment And Plan: EVA due to COVID 19 and dehydration Cr improving Cont IVF elevated BUn likely due to steroids Hypernatremia TPN free sodium strict BS control DM plan to start on insulin drip failure to thrive cont TPN COVID 19 as per primary team Acute resp failure due to COVID pneumonia on BiPAP subcutaneous emphysema supportive care Afib with RVR Amiodoarone drip f/u with cardiology poor Prognosis Physical Examination - Vital Signs Temperature: 98.4 F Blood Pressure: 163/71 Pulse: 108 Respirations: 27 Pulse Ox (%): 88 - Studies Medications List Reviewed: Yes
[2020-04-08] MEDS: INSULIN -REGULAR HUMAN 100 UNIT in NA CHLORIDE 0.9% 100 ML IV SCH ×2 (13:40→21:55)
[2020-04-08] MEDS ORDERED: NA CHLORIDE 0.9% 250 ML ONE (13:51)
[2020-04-08] MEDS: MORPHINE 2 MG/ML SYR IV PRN (13:55)
[2020-04-08] MEDS ORDERED: INSULIN -REGULAR HUMAN 100 UNIT in NA CHLORIDE 0.9% 100 ML IV SCH (16:00)
[2020-04-08] MEDS: MELATONIN 3 MG TABLET PO SCH (20:40)
[2020-04-08] MEDS: ATORVASTATIN 40 MG TAB PO SCH (20:40)
[2020-04-08] MEDS: VANCOMYCIN/NS 1 gm 1 GM/250 ML BAG IVPB SCH (22:45)
[2020-04-09 04:38] LABS: Absolute Lymphocytes (CBC) 0.6 K/uL (0.7-4.9); Basophils % 0.2 % (0-1.3); Hematocrit 44.5 % (39.6-49.0); Lymphocytes % 1.4 % (15.3-44.8); MPV 11.2 fL (7.6-11.3); RBC Red Blood Cell Count 4.91 M/uL (4.33-5.43)
[2020-04-09 05:06] LABS: C-Reactive Protein 62.4 mg/L (<3.00); Potassium 3.6 mmol/L (3.5-5.1)
[2020-04-09 06:15] LABS: Blood Morphology Comment NOT SEEN (NOT SEEN); Platelet Estimate ADEQ
[2020-04-09] MEDS: ENOXAPARIN 60 MG/0.6 ML SQ SCH ×3 (07:44→20:15)
[2020-04-09] MEDS: THIAMINE 200 MG/2 ML INJ IVP SCH (07:44)
[2020-04-09] MEDS: METHYLPREDNISOLONE 125 MG INJ IV SCH ×2 (07:44→20:15)
[2020-04-09] MEDS: VITAMIN D 1000 UNIT TAB PO SCH (07:46)
[2020-04-09] MEDS: CEFEPIME/SWI 1gm 10 ML IVP SCH (07:46)
[2020-04-09] MEDS: GLUCERNA SHAKE 237 ML CAN PO SCH ×2 (07:46→20:09)
[2020-04-09] MEDS ORDERED: FLUCONAZOLE 200mg IVPB 200 MG/100 ML BAG IV SCH (08:00)
[2020-04-09] MEDS: FLUCONAZOLE 200mg IVPB 200 MG/100 ML BAG IV SCH (08:58)
[2020-04-09] MEDS: LIPIDS IV SCH ×5 (10:26)
[2020-04-09] MEDS: WATER IV SCH ×5 (10:26)
[2020-04-09] MEDS: [UNRECOGNIZED DRUG - OTHER] IV SCH ×5 (10:26)
[2020-04-09] MEDS: DEXTROSE 50% IV SCH ×5 (10:26)
[2020-04-09] MEDS: AMINO ACIDS 10% IV SCH ×5 (10:26)
[2020-04-09] MEDS: INSULIN -REGULAR HUMAN 100 UNIT in NA CHLORIDE 0.9% 100 ML IV SCH (12:37)
[2020-04-09] MEDS: NOREPINEPHRINE 4 MG in D5W 250 ML IV PRN ×2 (13:10→19:11)
--- NOTE | 2020-04-09 16:49 | P.PN ---
Subjective Date of Service: 04/24/20 Chief Complaint: ARDS from COVID Patient's condition is worsening worsening subcutaneous emphysema mottled extremities unresponsive Review of Systems is unable to be obtained Physical Examination - Vital Signs Temperature: 103.2 F Blood Pressure: 121/42 Pulse: 94 Respirations: 30 Pulse Ox (%): 92 - Physical Exam General: Unresponsive Respiratory: Rhonchi/gurgles Cardiovascular: Other (Mottled extremities) - Studies Medications List Reviewed: Yes Assessment And Plan - Current Problems (Diagnosis) (1) Acute respiratory distress syndrome (ARDS) due to 2019 novel coronavirus Status: Acute Plan: Patient unfortunately is a worsening is subcutaneous emphysema is also getting worse is developing mottling of her lower extremities is currently hypotensive shock on vasopressor treatment renal function is much worse study increase in his white count is over 40,000/he is on triple therapy patient received saha virus plasma over the weekend he is fully anti coagulated
[2020-04-09] MEDS: ATORVASTATIN 40 MG TAB PO SCH (20:09)
[2020-04-09] MEDS: MELATONIN 3 MG TABLET PO SCH (20:09)
[2020-04-10] MEDS: NOREPINEPHRINE 4 MG in D5W 250 ML IV PRN ×5 (00:04→22:34)
[2020-04-10] MEDS: INSULIN -REGULAR HUMAN 100 UNIT in NA CHLORIDE 0.9% 100 ML IV SCH (04:10)
[2020-04-10 05:03] VITALS: BMI 27.4
[2020-04-10 05:30] LABS: C-Reactive Protein 30.3 mg/L (<3.00); Ferritin 1230.9 ng/mL (26-388); Potassium 5.1 mmol/L (3.5-5.1)
[2020-04-10] MEDS ORDERED: NOREPINEPHRINE 4mg/D5W 250mL 4 MG/250 ML BAG IV ONE (06:46)
[2020-04-10] MEDS: THIAMINE 200 MG/2 ML INJ IVP SCH (08:27)
[2020-04-10] MEDS: METHYLPREDNISOLONE 125 MG INJ IV SCH ×2 (08:28→20:16)
[2020-04-10] MEDS: ENOXAPARIN 60 MG/0.6 ML SQ SCH (08:28)
[2020-04-10] MEDS: CEFEPIME/SWI 1gm 10 ML IVP SCH (08:29)
[2020-04-10] MEDS: GLUCERNA SHAKE 237 ML CAN PO SCH ×2 (08:44→20:06)
[2020-04-10] MEDS: VITAMIN D 1000 UNIT TAB PO SCH (08:51)
--- NOTE | 2020-04-10 09:20 | P.PN ---
Subjective Date of Service: 04/09/20 Patient has become much worse through the last week. He has developed a pneumomediastinum which is quite extensive. He has developed renal insufficiency. Patient is remaining hypoxic as well and has ARDS from COVID-19. Patient's prognosis is very poor any is unlikely to survive this event. Family had made him a do not resuscitate; however, they have changed to a full code. Patient is difficult to arouse. He may need mechanical ventilation. Review of Systems is unable to be obtained Physical Examination - Vital Signs Temperature: 99.3 F Blood Pressure: 123/41 Pulse: 82 Respirations: 23 Pulse Ox (%): 92 - Physical Exam General: Moderate distress, Other (Lethargic and obtunded) HEENT: Atraumatic, PERRLA, EOMI Neck: Supple, JVD not distended Respiratory: Diminished, Crackles/rales, Expiratory wheezes, Rhonchi/gurgles Cardiovascular: Regular rate/rhythm, Normal S1 S2, Systolic murmur Gastrointestinal: Normal bowel sounds, Soft and benign, Non-distended, No tenderness Musculoskeletal: No clubbing, Swelling Neurological: Sensation intact, Cranial nerves 3-12 intact - Studies Medications List Reviewed: Yes Assessment & Plan - Problems (Diagnosis) (1) Pneumonia due to COVID-19 virus Current Visit: Yes Status: Acute (2) Hypoxemia Current Visit: Yes Status: Acute (3) History of diabetes mellitus, type II Current Visit: Yes Status: Acute - Plan Continue with plan of care as mentioned below: 1. Continue with IV steroids; 2. Resumed IV antibiotics with Cefepime 3. ARDS changes on chest x-ray 4. Continue with BiPAP support. Patient is hypoxic and cyanotic. 5. Pulmonary consultation appreciated 6. Continue with albuterol inhaler therapy; 7. Patient developing renal failure; multi organ failure is eminent. Patient may need elective intubation. 8. Strict blood sugar control 9. Will discuss with family regarding code status. At this time he is a full code, and he is on likely at his age to survive this event especially in light of the significant pneumomediastinum. 10. GI and DVT prophylaxis - Advance Directives Does patient have a Living Will: No Does patient have a Durable POA for Healthcare: No - Code Status/Comfort Care Code Status: Full Code
[2020-04-10] MEDS: FLUCONAZOLE 200mg IVPB 200 MG/100 ML BAG IV SCH (10:05)
[2020-04-10] MEDS: AMINO ACIDS 10% IV SCH ×5 (10:51)
[2020-04-10] MEDS: DEXTROSE 50% IV SCH ×5 (10:51)
[2020-04-10] MEDS: [UNRECOGNIZED DRUG - OTHER] IV SCH ×5 (10:51)
[2020-04-10] MEDS: LIPIDS IV SCH ×5 (10:51)
[2020-04-10] MEDS: WATER IV SCH ×5 (10:51)
[2020-04-10] MEDS ORDERED: NA CHLORIDE 0.9% 500 ML IV ONE (11:32)
[2020-04-10] MEDS: VANCOMYCIN/NS 1 gm 1 GM/250 ML BAG IVPB SCH (11:48)
[2020-04-10] MEDS ORDERED: INSULIN -REGULAR HUMAN 50 UNIT/0.5 ML ML ONE (12:29)
--- NOTE | 2020-04-10 16:36 | PN ---
Date of Progress Note: 04/10/2020 Subjective: The patient was admitted with COVID pneumonia. Patient had septic shock. The patient had atrial fibrillation. The patient received plasma. Kidney function continue to deteriorate. The patient started being oliguric. The patient is on Levophed. Objective: Vital Signs: Blood pressure currently 121/42, pulse of 94, temperature 103.3. Patient is oliguric. Urine output only 175. Chest: Subcutaneous emphysema. Heart: Tachycardic. Abdomen: Soft. Scrotal swelling. Extremities: Cyanosis, below knee. Neuro: The patient is comatose. Laboratory Data: WBC 44.2, H and H 14.2/44.5, platelet 118. Sodium 140, potassium 5.1, bicarb 24, BUN 82, creatinine 3.4, GFR 17, calcium 8.1. Current Medications: The patient on include, 1. Levophed. 2. Lovenox. 3. Amiodarone. 4. Atorvastatin. 5. Clonidine. 6. Solu-Medrol. 7. Insulin. 8. TPN. Assessment And Plan: 1. Acute kidney injury secondary to toxic acute tubular necrosis, COVID nephropathy, poor perfusion, acute tubular necrosis, oliguric, the patient is terminally sick. I spoke to the son, at [phone]. Explained the prognosis for the patient in detail translating to his mother. I explained the option of treatment. Family decided no renal replacement therapy as the patient cannot tolerate it. I am going to go ahead and discontinue clonidine. Bolus the patient with 1 L of normal saline and we will follow up the patient. Patient has overall poor prognosis. 2. Hypernatremia secondary to dehydration, recovered, resolved. 3. Marginal hyperkalemia. No need for treatment right now. 4. COVID pneumonia, respiratory failure, as by Pulmonary. 5. Subcutaneous emphysema. Continue conservative treatment. 6. Multiorgan failure. Continue current treatment. Continue Levophed. We will bolus the patient. Case was discussed with Dr. Huber, discussed with the staff, agreed on the plan. Discussed with family. Time spent 35 minutes. ABISAI Voice ID: [id number] Report ID: [id number] [facility]
--- NOTE | 2020-04-10 19:00 | PN ---
Date of Progress Note: 04/09/2020 Chief Complaint: Acute kidney injury and hypernatremia Subjective: Patient has multiple medical problems. He is admitted for respiratory failure. He justine ins in ICU. He has ARDS and pneumonia secondary to COVID infection. He is on TPN and insulin was st arted for hyperglycemia. Review of Systems: Unobtainable. Physical Examination: Deferred to hospitalist due to COVID-19 pandemia. Assessment And Plan: 1.Acute kidney injury due to COVID-19 and volume depletion. Creatinine level is gradually improving . Elevated BUN and creatinine ratio is due to steroids. Continue treatment with IV fluids. Adjust electrolytes replacement. 2.Hypernatremia. TPN was adjusted to treat hypernatremia. 3.Diabetes mellitus. Continue insulin drip. 4.COVID pneumonia treatment per primary team. Respiratory failure due to COVID pneumonia. Patient will remain on BiPAP. 5.Atrial fibrillation with rapid ventricular response. Patient is on amiodarone drip. Follow up [facility]. FREDERICK/CHELY Voice ID: [id number] Report ID: [id number]
[2020-04-10] MEDS: MELATONIN 3 MG TABLET PO SCH (20:06)
[2020-04-10] MEDS: ATORVASTATIN 40 MG TAB PO SCH (20:06)
[2020-04-10] MEDS ORDERED: D50W 25 GM/50 ML SYRINGE/VIAL IV PRN (20:33)
[2020-04-10] MEDS ORDERED: GLUCAGON 1 MG/VIAL IM PRN (20:33)
[2020-04-10] MEDS: INSULIN -REGULAR HUMAN 50 UNIT/0.5 ML ML SQ SCH (21:14)
[2020-04-11] MEDS: INSULIN -REGULAR HUMAN 50 UNIT/0.5 ML ML SQ SCH
[2020-04-11 00:35] VITALS: O2SAT 81
--- NOTE | 2020-04-11 02:11 | P.DS ---
Admission Date: 03/29/20 Discharge Date: 04/11/20 Comment: Patient at 1:30 a.m. Reason for Admission: ARDS from COVID Brief History of Present Illness: Patient was admitted for Covid pneumonia. The patient is an 84-year-old gentleman who came to the hospital with difficulty breathing. Patient has not been really complaining for the last few days except for a headache. However, the family noticed that he was not breathing well. He went to his PCP, Dr. Brown, who advised him to go to the emergency room. Patient was seen in the emergency room and chest x-ray revealed bilateral basilar pneumonia. Patient was initially felt to have bilateral pneumonia. COVID-19 testing was pending. It has come back positive. The patient will be admitted to the ICU for COVID-19 patients. Patient is slightly hypoxic and tachypneic and will monitor him closely in the ICU and check inflammatory markers as well. The patient denies any history of smoking. Has a history of diabetes and is on oral medications for this. He apparently does have family in [place]. Otherwise, no sick contacts. Hospital Course: Spoke to the family earlier today and family decided to make patient DNR earlier this evening. Patient's family was aware that the patient was not doing well and Patient's breathing and oxygen saturations were progressively worsening over the course of this admission despite all efforts. Patient's daughter was bedside when patient at 1:30 a.m.. <Homer Higgins - Last Filed: 04/11/20 02:11> Admission Date: 03/29/20 Discharge Date: 04/11/20 - Problems (1) Pneumonia due to COVID-19 virus Status: Acute (2) Hypoxemia Status: Acute (3) History of diabetes mellitus, type II Status: Acute Hospital Course: Patient had a prolonged hospital course. Patient declined neurologically initially. Patient had confusion and was not really following commands well. He will not leave as BiPAP alone. He continued to become hypoxic and lower extremities became cyanotic. The patient was made DNR but this was changed to a full code for a short term. Patient's daughter came to see him and she decided to place him under DNR status. Patient peacefully with his daughter at bedside. <Oma Davis - Last Filed: 04/16/20 08:13> Disposition: Discharge Condition: Vital Signs/Physical Exam: Temp Pulse Resp BP Pulse Ox 99.6 F 65 23 H 110/44 L 80 L 04/11/20 00:00 04/11/20 01:00 04/11/20 01:00 04/11/20 01:00 04/11/20 01:00 General: Unresponsive HEENT: Atraumatic, Normocephalic, PERRLA Neck: Supple, Other (Trachea midline) Respiratory: Diminished Gastrointestinal: Hypoactive Musculoskeletal: No clubbing, No contractures, Swelling Integumentary: No rashes, No breakdown, No significant lesion Neurological: Abnormal cranial nerve function, Abnormal affect Laboratory Data at Discharge: WBC 44.2 K/uL (4.3-10.9) H* D 04/09/20 04:10 Hgb 14.2 g/dL (13.6-17.9) 04/09/20 04:10 Hct 44.5 % (39.6-49.0) 04/09/20 04:10 Plt Count 118 K/uL (152-406) L 04/09/20 04:10 PT 15.3 SECONDS (9.5-12.5) H 04/01/20 07:06 INR 1.30 04/01/20 07:06 APTT 27.5 SECONDS (24.3-36.9) 04/01/20 07:06 Sodium 140 mmol/L (136-145) 04/10/20 04:55 Potassium 5.1 mmol/L (3.5-5.1) 04/10/20 04:55 BUN 82 mg/dL (7-18) H D 04/10/20 04:55 Creatinine 3.48 mg/dL (0.55-1.3) H D 04/10/20 04:55 Glucose Cancelled 04/11/20 01:27 Uric Acid 8.0 mg/dL (3.5-7.2) H 04/06/20 03:58 Phosphorus 2.5 mg/dL (2.5-4.9) 04/06/20 16:21 Magnesium 2.7 mg/dL (1.8-2.4) H 04/07/20 04:45 Total Bilirubin 0.6 mg/dL (0.2-1.0) 04/01/20 07:06 AST 38 U/L (15-37) H 04/01/20 07:06 ALT 19 U/L (12-78) 04/01/20 07:06 Alkaline Phosphatase 115 U/L (45-117) D 04/01/20 07:06 <Homer Higgins - Last Filed: 04/11/20 02:11> Other Physical/Emotional Findings: Patient was not breathing with no heartbeat and no neurologic response. And patient had no physical exam findings or vital signs at . <Oma Davis - Last Filed: 04/16/20 08:13> Patient Discharge Instructions: Patient at 1:30 a.m.. Time spent managing pt's care (in minutes): 50 <Homer Higgins - Last Filed: 04/11/20 02:11> <Oma Davis - Last Filed: 04/16/20 08:13> Home Medications: Empagliflozin [Jardiance] 10 mg PO DAILY 09/22/18 Metformin HCl 1,000 mg PO BID 09/22/18 Sitagliptin Phosphate [Januvia*] 100 mg PO DAILY 09/22/18 Famotidine [Pepcid*] 20 mg PO BID #60 tab 09/26/18 Ferrous Sulfate [Iron] 325 mg PO BID #60 tablet 09/26/18 levoFLOXacin [Levaquin*] 500 mg PO DAILY #2 tab 09/26/18 traMADol HCL [Ultram*] 50 mg PO TID PRN #15 tab 09/26/18
[2020-04-11] MEDS ORDERED: WATER IV SCH ×6 (09:00)
[2020-04-11] MEDS ORDERED: ENOXAPARIN 60 MG/0.6 ML SQ SCH (09:00)
[2020-04-11] MEDS ORDERED: LIPIDS IV SCH ×6 (09:00)
[2020-04-11] MEDS ORDERED: [UNRECOGNIZED DRUG - OTHER] IV SCH ×6 (09:00)
[2020-04-11] MEDS ORDERED: DEXTROSE 50% IV SCH ×6 (09:00)
[2020-04-11] MEDS ORDERED: AMINO ACIDS 10% IV SCH ×6 (09:00)
--- NOTE | 2020-04-19 17:05 | P.PN ---
Date of Service: 04/10/20 Subjective Patient has declined; lower extremity cyanotic. Worsening pneumomediastinum; also has developed renal insufficiency. Patient is remaining hypoxic as well and has ARDS from COVID-19. Patient's prognosis is very poor any is unlikely to survive this event. Family had made him a do not resuscitate; however, they have changed to a full code. Had long discussion once again. They are contemplating DNR. Patient is difficult to arouse. He may need mechanical ventilation unless family recommends otherwise. Review of Systems is unable to be obtained Physical Examination - Vital Signs reviewed - Physical Exam General: Moderate distress, Other (Lethargic and obtunded) Respiratory: Diminished, Crackles/rales, Expiratory wheezes, Rhonchi/gurgles Cardiovascular: Regular rate/rhythm, Normal S1 S2, Systolic murmur Gastrointestinal: Normal bowel sounds, Soft and benign, Non-distended, No te nderness Musculoskeletal: No clubbing, Swelling; lower extremity cyanotic Assessment & Plan - Problems (Diagnosis) (1) Pneumonia due to COVID-19 virus Current Visit: Yes Status: Acute (2) Hypoxemia Current Visit: Yes Status: Acute (3) History of diabetes mellitus, type II Current Visit: Yes Status: Acute - Plan Continue with plan of care as mentioned below: 1. Continue IV steroids; 2. Resumed IV antibiotics 3. ARDS secondary to COVID 4. Continue with BiPAP support. Patient is hypoxic and cyanotic. 5. Continue with albuterol inhaler therapy; 6. Progressive multi-organ failure which is eminent. Patient may need elective intubation. 7. Discussing with family regarding code status. 8. GI and DVT prophylaxis - Advance Directives Does patient have a Living Will: No Does patient have a Durable POA for Healthcare: No - Code Status/Comfort Care Code Status: Full Code
[2020-04-24 12:54] VITALS: BP 121/42; TEMP 103.2
== END 2020-04-11 02:50 | disposition expired | DRG 177 ==
LOC: ER 13:33 → ERHOLD 16:46 → 3RD-ICU 21:45
PROVIDERS: ADMIT Hospitalist; ATTEND Hospitalist
PROC: 5A09557 Assistance with Respiratory Ventilation, Greater than 96 Consecutive Hours, Continuous Positive Airway Pressure (ICD-10-PCS; 2020-03-29)
PROC: 3E0336Z Introduction of Nutritional Substance into Peripheral Vein, Percutaneous Approach (ICD-10-PCS; principal; 2020-04-04)
PROC: 02HV33Z Insertion of Infusion Device into Superior Vena Cava, Percutaneous Approach (ICD-10-PCS; 2020-04-04)
PROC: 30233K1 Transfusion of Nonautologous Frozen Plasma into Peripheral Vein, Percutaneous Approach (ICD-10-PCS; 2020-04-08)
PROC: XW033E5 Introduction of Remdesivir Anti-infective into Peripheral Vein, Percutaneous Approach, New Technology Group 5 (ICD-10-PCS; 2020-04-08)
DX: U07.1 COVID-19 (principal); J12.89 Other viral pneumonia; J80 Acute respiratory distress syndrome; G92 Toxic encephalopathy; N17.0 Acute kidney failure with tubular necrosis; R65.21 Severe sepsis with septic shock; A41.89 Other specified sepsis; E87.0 Hyperosmolality and hypernatremia; E44.0 Moderate protein-calorie malnutrition; E87.2 Acidosis; M62.82 Rhabdomyolysis; Z88.8 Allergy status to other drugs, medicaments and biological substances; Z79.84 Long term (current) use of oral hypoglycemic drugs; Z79.899 Other long term (current) drug therapy; R41.0 Disorientation, unspecified; T38.0X5A Adverse effect of glucocorticoids and synthetic analogues, initial encounter; I10 Essential (primary) hypertension; D72.829 Elevated white blood cell count, unspecified; Z68.27 Body mass index [BMI] 27.0-27.9, adult; J98.2 Interstitial emphysema; E78.5 Hyperlipidemia, unspecified; E11.65 Type 2 diabetes mellitus with hyperglycemia; E86.0 Dehydration; R45.1 Restlessness and agitation; Z66 Do not resuscitate; I48.91 Unspecified atrial fibrillation; E11.21 Type 2 diabetes mellitus with diabetic nephropathy; E87.5 Hyperkalemia; R62.7 Adult failure to thrive
CPT/HCPCS: 36415; 36430; 36569; 71045; 76770; 80048; 80053; 80069; 80076; 80202; 81003; 81015; 82550; 82570; 82728; 82805; 82947; 83605; 83615; 83735; 83880; 84100; 84145; 84156; 84443; 84484; 84550; 85025; 85379; 85610; 85730; 86140; 86900; 86901; 86927; 87040; 88108; 93005; 94002; 94003; 94640; 94660; 94760; 96365; 96367; 99285; J0282; J0360; J0456; J0692; J0696; J1450; J1630; J1650; J1815; J2270; J2543; J2920; J2930; J3370; J3411; J3486; J7030; J7040; J7050; J7060; J7120; J7799; U0003